=== PATIENT | female | born 1935 | race Caucasian/White ===

== ENCOUNTER → 2017-08-19 16:23 | Outpatient (CLI) | payer MEDICARE, BC, SELFPAY ==
--- NOTE | 2017-08-19 16:25 | CT_ITS ---
STUDY: CT BRAIN WITHOUT CONTRAST REASON FOR EXAM: Female, 81 years old. Cognitive impairment. RADIATION DOSAGE (If Supplied By Facility): CTDIvol = ( 44.99 ) mGy, DLP = ( 765.18 ) mGycm TECHNIQUE: Transaxial CT imaging of the brain was performed without administration of intravenous contrast material. Individualized dose optimization techniques were used for this CT. COMPARISON: May 01, 2017. FINDINGS: Normal soft tissue structures. Normal calvarium. Normal size ventricles and extra-axial spaces for the patient's age. Normal white matter tracts of the cerebral hemispheres. Normal basal ganglia and thalami. Normal brainstem. Normal cerebellum. There is no intracranial hemorrhage. There are no findings of an acute ischemic infarction. Normal visualized paranasal sinuses. CT/Brain/Head without Contrast IMPRESSION: Normal unenhanced CT scan of the brain, for age. Electronically Signed: Matt Montoya MD at 6:27 EDT , Service support ,
== END ==
PROVIDERS: Family Provider Family Medicine; PCP Family Medicine; Visit Provider Family Medicine
DX: R41.89 Other symptoms and signs involving cognitive functions and awareness (principal)
CPT/HCPCS: 70450

== ENCOUNTER → 2017-09-09 11:31 | Outpatient (CLI) | payer MEDICARE, BC, SELFPAY ==
[2017-09-09 12:55] LABS: Anion Gap 7 (5-15); Chloride 106 mmol/L (98-107); Potassium 3.6 mmol/L (3.5-5.1); Sodium Level 142 mmol/L (136-145); Thyroid Stim Hormone (TSH) 1.24 uIU/mL (0.358-3.74)
[2017-09-10 09:48] LABS: Vitamin B12 466 pg/mL (211-911)
[2017-09-12 02:33] LABS: Rapid Plasmin Reagin (RPR) NONREACTIVE (NONREACTIVE)
== END ==
PROVIDERS: Family Provider Family Medicine; PCP Family Medicine; Visit Provider Psychiatry & Neurology Neurology
DX: G31.84 Mild cognitive impairment of uncertain or unknown etiology (principal)
CPT/HCPCS: 36415; 80051; 82607; 84443; 86592

== ENCOUNTER → 2017-09-11 13:45 | Outpatient (CLI) | payer MEDICARE, BC, SELFPAY ==
--- NOTE | 2017-09-11 13:46 | CDU_ITS ---
Reason For Study: DIZZINESS Rt. Velocities/BP Lt. Velocities/BP Prox CCA 68.0/22.3 cm/sec. Prox CCA 78.0/23.5 cm/sec. Mid CCA 59.8/20.5 cm/sec. Mid CCA 55.7/19.3 cm/sec. Dist CCA 61.0/25.2 cm/sec. Dist CCA 57.5/18.2 cm/sec. Prox ICA 53.5/21.5 cm/sec. Prox ICA 39.7/13.7 cm/sec. Mid ICA 61.0/22.9 cm/sec. Mid ICA 42.8/17.3 cm/sec. Dist ICA 53.1/22.3 cm/sec. Dist ICA 48.4/19.3 cm/sec. Rt. ICA/CCA = 1.0. Lt. ICA/CCA = .86. Prox ECA 45.1/11.1 cm/sec. Prox ECA 55.1/14.1 cm/sec. Rt. Vert. 48.1/15.8 cm/sec. Lt. Vert. 32.2/9.8 cm/sec. Right Extracranial There is intimal thickening but no significant atherosclerotic plaque noted in the right common carotid artery. There is heterogeneous, irregular atherosclerotic plaque noted in the right internal carotid artery. There is heterogeneous, irregular atherosclerotic plaque noted in the right external carotid artery. Antegrade flow is noted in the right vertebral artery. Left Extracranial There is homogeneous, smooth atherosclerotic plaque noted in the left common carotid artery. There is heterogeneous, irregular atherosclerotic plaque noted in the left internal carotid artery. There is heterogeneous, irregular atherosclerotic plaque noted in the left external carotid artery. Antegrade flow is noted in the left vertebral artery. Procedure Carotid Duplex 00126. Exam performed in department. Interpretation Summary Minimal irregular plague at the proximal bilateral internal carotids with <50% stenosis bilaterally Normal flow bilateral external carotids Patent and antegrade vertebrals bilaterally Ordering Physician: Gabby Jaramillo Referring Physician: Sagar Hazel M.D. Performed By: Jailyn Edouard RVT
== END ==
PROVIDERS: Family Provider Family Medicine; PCP Family Medicine; Visit Provider Physician Assistant Medical
DX: R01.1 Cardiac murmur, unspecified (principal); R42 Dizziness and giddiness
CPT/HCPCS: 93306; 93880

== ENCOUNTER → 2017-09-19 09:18 | Outpatient (CLI) | payer MEDICARE, BC, SELFPAY ==
--- NOTE | 2017-09-21 11:31 | EEG ---
- Electroencephalogram Date of service 09/19/2017 This is an 18 channel electroencephalogram performed utilizing the International 10-20 electrode placement protocol as well as EKG reference leads and photic stimulation on this 81-year-old lady with a history of dizziness after a pacemaker check. The EKG leads were obscured by artifact throughout the recording. The patient remained awake throughout the recording. Hyperventilation was performed for 3 minutes with good effort with no lateralizing or epileptiform changes in the post hyperventilatory phase was unremarkable. Background activity is 10 Hz symmetrically in the posterior leads which attenuates with eye opening. Photic stimulation generates a normal symmetric driving response in the posterior leads. Impression: Normal awake electroencephalogram.
== END ==
PROVIDERS: Family Provider Family Medicine; PCP Family Medicine; Visit Provider Psychiatry & Neurology Neurology
DX: R41.3 Other amnesia (principal); R55 Syncope and collapse

== ENCOUNTER → 2017-10-06 11:52 | Outpatient (CLI) | payer MEDICARE, BC, SELFPAY ==
[2017-10-06 15:47] LABS: Absolute Lymphocyte Count 1.28 X10^3/ul (0.83-4.51); Absolute Neutrophil Count 4.1 X10^3/uL (2.0-7.7); Basophil# 0.03 X10^3/uL; Basophil% 0.5 % (0-1); Eosinophil# 0.02 X10^3/uL; Eosinophils% 0.3 % (0-5); Hematocrit 43.2 % (37-47); Lymphocyte # 1.28 X10^3/ul (4.0); Lymphocyte % 21.3 % (19-41); Mean Corp Hgb Conc 32.4 g/gl (32-36); Mean Corpuscular Hgb 28.5 pg (27.0-32.0); Mean Platelet Vol. 10.8 fl (6.2-12.0); Monocyte# 0.61 X10^3/uL; Monocyte% 10.1 % (0-10); Neutrophil # 4.06 X10^3/uL (2.7-7.7); Neutrophil % 67.6 % (47-70); Platelet Count 160 K/mm3 (150-450); RBC Distribution Width CV 13.9 % (11.6-14.6); RBC Distribution Width SD 44.8 fl (35.1-43.9); Red Blood Count 4.91 M/mm3 (4.2-5.4)
[2017-10-06 16:08] LABS: POSITIVE COUNT NO; POSITIVE DIFFERENTIAL NO; POSITIVE MORPHOLOGY NO
== END ==
PROVIDERS: Family Provider Family Medicine; PCP Family Medicine; Visit Provider Physician Assistant Medical
DX: E78.2 Mixed hyperlipidemia (principal)
CPT/HCPCS: 36415; 85025

== ENCOUNTER → 2017-10-16 09:22 | Outpatient (CLI) | payer MEDICARE, BC, SELFPAY ==
--- NOTE | 2017-10-16 07:00 | PET_ITS ---
EXAMINATION: FDG PET BRAIN INDICATIONS: A 81-year-old female with reported history of memory loss. COMPARISON EXAMINATION: CT of the brain report dated 08/19/17. TECHNIQUE: Following the intravenous administration of 10.05 mCi of F-18 deoxyglucose via the right antecubital fossa, multiplanar image acquisitions of the brain obtained at 60 minutes post radiopharmaceutical administration reveal: SERUM GLUCOSE LEVEL: 83 mg/dl. HEIGHT: 60 inches. WEIGHT: 110 lbs FINDINGS: 1. Qualitative, visual analysis demonstrates relatively symmetric and preserved glucose metabolism noted in the bilateral frontal, temporal, occipital and parietal lobes of the cerebral cortex. There is symmetric visualized on the basal ganglia and cerebellar hemispheres. PET/PET Brain Metabolic Eval IMPRESSION: 1. NEGATIVE EXAMINATION. There is no definitive scintigraphic evidence of altered glucose metabolism indicative of cholinergic dysfunction, dementia Alzheimer type on the present evaluation. (Raine, Molecular Imaging and Biology 4:239, 2004). Electronic Signature Kendrick Santiago D.O. Electronically Signed: Kendrick Santiago DO at 23:46 EDT Tel , Service support ,
== END ==
LOC: ONC 09:22
PROVIDERS: Family Provider Family Medicine; PCP Family Medicine; Visit Provider Psychiatry & Neurology Neurology
DX: C71.9 Malignant neoplasm of brain, unspecified (principal)
CPT/HCPCS: 78608; A9552; A4216

== ENCOUNTER 2017-11-16 12:51 | Emergency (ER) | payer MEDICARE, BC, SELFPAY ==
[2017-11-16 12:52] VITALS: BP 184/105; PULSE 88; RESP 16; TEMP 36.7; O2SAT 99; BMI 20.2
--- NOTE | 2017-11-16 13:14 | EKG12_ITS ---
Test Reason : DIZZINESS Blood Pressure : / mmHG Vent. Rate : 087 BPM Atrial Rate : 087 BPM P-R Int : 170 ms QRS Dur : 164 ms QT Int : 474 ms P-R-T Axes : 054 -29 091 degrees QTc Int : 570 ms Atrial-sensed ventricular-paced rhythm Abnormal ECG Confirmed by WALLY REDD, LEIGH ([id number]), content editor LINDSAY AGOSTO ([id number]) on 11/20/2017 3:48:15 PM Referred By: EMERITA Confirmed By:LEIGH LO MD
--- NOTE | 2017-11-16 13:18 | RAD_ITS ---
STUDY: X-RAY CHEST REASON FOR EXAM: Female, 82 years old. Shortness of breath and dyspnea TECHNIQUE: Single AP portable view of the chest. COMPARISON: 05/18/2017 FINDINGS: There is hyperinflation of the lungs consistent with chronic obstructive lung disease (COPD). Stable elevated left hemidiaphragm with underlying stomach bubble. Stable left chest wall pacing device. There is no demonstrated pleural abnormality. There is mild cardiac enlargement. Normal mediastinum and dick. Normal visualized pulmonary arteries. There is atherosclerotic calcification of the aortic arch with tortuosity. There are diffuse degenerative changes of the visualized thoracic spine. Normal visualized ribs, clavicles, and shoulders. There is no demonstrated abnormality of the visualized soft tissue structures of the upper abdomen. RAD/Chest 1 View (Portable) IMPRESSION: No acute findings Electronically Signed: Pee Pradhan DO at 13:49 EDT Tel , Service support ,
[2017-11-16] MEDS: 0.9% Normal Saline 1,000 ML 100 ML IV (13:20)
[2017-11-16 13:26] LABS: Absolute Lymphocyte Count 0.93 X10^3/ul (0.83-4.51); Absolute Neutrophil Count 5.8 X10^3/uL (2.0-7.7); Basophil# 0.02 X10^3/uL; Basophil% 0.3 % (0-1); Eosinophil# 0.04 X10^3/uL; Eosinophils% 0.5 % (0-5); Hematocrit 45.3 % (37-47); Hemoglobin 14.4 g/dl (12.0-15.0); Lymphocyte # 0.93 X10^3/ul (4.0); Lymphocyte % 12.5 % (19-41); Mean Corp Hgb Conc 31.8 g/gl (32-36); Mean Platelet Vol. 9.8 fl (6.2-12.0); Monocyte# 0.64 X10^3/uL; Monocyte% 8.6 % (0-10); POSITIVE COUNT NO; POSITIVE DIFFERENTIAL NO; POSITIVE MORPHOLOGY NO; Platelet Count 157 K/mm3 (150-450); RBC Distribution Width CV 13.8 % (11.6-14.6); RBC Distribution Width SD 44.6 fl (35.1-43.9); Red Blood Count 5.15 M/mm3 (4.2-5.4); White Blood Count 7.4 K/mm3 (4.4-11.0)
[2017-11-16 13:27] LABS: Mucous, Urine 0 SEEN /hpf (<or=2+); Red Blood Cells-Urine 0 SEEN /hpf (0-5); Squamous Epithelial Cells - UA 0 SEEN /hpf (5-10); White Blood Cells 0 SEEN /hpf (0-5)
[2017-11-16 13:28] LABS: Color, Urine Yellow (Yellow); Glucose, Dipstick Normal (Normal); Ketone-Dipstick Negative (Negative); Leukocyte Esterase-Dipstick 25 /ul (Negative); Nitrite-Dipstick Positive (Negative); Occult Blood-Urine Negative /ul (Negative); Protein-Dipstick Negative (Negative); Urine Bilirubin Dipstick Negative (Negative); Urine Clarity Clear (Clear); Urine Urobilinogen Normal (Normal)
[2017-11-16 13:34] LABS: Anion Gap 7 (5-15); BUN 9 mg/dL (7-18); BUN/Creat Ratio 10.4 RATIO (10-20); Calcium,Total 9.2 mg/dL (8.5-10.1); Chloride 105 mmol/L (98-107); Creatinine, Serum 0.87 mg/dL (0.55-1.02); EST Glomerular Filtration Rate 67 mL/min (>60); Est Glom Filt Rate - Afr Amer 81 mL/min (>60); Estimated Creatinine Clearance 37.05 ml/min; Glucose 114 mg/dL (74-106); Potassium 3.6 mmol/L (3.5-5.1); Sodium Level 141 mmol/L (136-145)
[2017-11-16 13:35] LABS: Bacteria 1+ /hpf (None Seen)
--- NOTE | 2017-11-16 14:32 | NURSING ---
INTERROGATED PACER WITH ED'S [facility] KIT PER PROTOCOL. NUMBER CALLED AT THE END TO GET RESULTS. WAS TOLD A PHYSICIAN WOULD READ IT AND CALL ED BACK.
--- NOTE | 2017-11-16 14:52 | ED.VISSUMM ---
- ER Visit Summary Date of Service: 11/16/17 Chief Complaint: Dizzy History of Present Illness: The patient is a 82 F who states she had a dizzy sensation at religion this morning is that she might pass out. She states that she could feel her pacemaker firing which she usually cannot. She did not have chest pain and did not feel like her heart was racing or beating abnormally. She feels better at this time. She did not eat breakfast this morning but states that is normal for her. Physical Examination: Vital signs are significant for blood pressure of 184/105. Other vitals are normal. Patient sitting upright in bed talking with her family. She is in no acute distress. Head neck examination is normal. Heart is regular rate and rhythm. Lungs are clear. Abdomen is soft and nontender. Extremity examination reveals no calf tenderness or edema. Neuro exam reveals good strength and sensation throughout on testing. Test Results: EKG is paced at 87. This is unchanged compared to prior. Chest x-ray shows no acute findings. CBC and chemistry studies unremarkable. Urinalysis shows 1+ bacteria but 0 white cells and 0 epithelials. Emergency Department Course and Treatment: Patient received IV fluids. Pacemaker was interrogated and shows no events. She was up ambulating to the restroom without difficulty multiple times while here. At this time she feels back to her baseline. Vital signs at time of discharge include a blood pressure of 138/79 and a heart rate of 84. Treatment Plan: [] Disposition: Discharge Impression: Dizziness, resolved This note was generated with [employer] dictation software. It may contain incorrect words, spelling, and punctuation that were not noted in review of the chart prior to signing ED Disposition - Plan for ED Patient: Disposition: Home or Assisted Living Chief Complaint: Dizziness Instructions: ED Dizziness [facility] Referrals: Zay Bautista MD [STAFF PHYSICIAN] - Sagar Hazel MD [Primary Care Provider] -
--- NOTE | 2017-11-16 14:52 | ED.DEP ---
ED Disposition - Plan for ED Patient: Disposition: Home or Assisted Living Chief Complaint: Dizziness Instructions: ED Dizziness [facility] Referrals: Sagar Hazel MD [Primary Care Provider] - Zay Bautista MD [STAFF PHYSICIAN] -
[2017-11-16 15:03] VITALS: BP 138/94; PULSE 84; RESP 18; O2SAT 98
== END 2017-11-16 15:08 | disposition home or self-care (01) ==
PROVIDERS: Emergency Provider Emergency Medicine; Family Provider Family Medicine; PCP Family Medicine
DX: R42 Dizziness and giddiness (principal); E78.00 Pure hypercholesterolemia, unspecified; Z95.0 Presence of cardiac pacemaker
CPT/HCPCS: 71045; 80048; 81001; 85025; 93005; 99285

== ENCOUNTER 2019-11-11 20:02 | Emergency (ER) | payer MEDICARE, SELFPAY ==
[2019-07-08 08:50] VITALS: BMI 20.2
[2019-11-11 20:03] VITALS: BP 143/92; PULSE 86; RESP 16; TEMP 36.3; O2SAT 100; BMI 21.2
[2019-11-11] MEDS: Ondansetron ODT 4 MG Tablet PO (20:22)
[2019-11-11] MEDS: fentaNYL 100 MCG/2 ML Ampul 50 MCG IM (20:23)
--- NOTE | 2019-11-11 20:35 | RAD_ITS ---
STUDY: X-RAY - PELVIS AND RIGHT HIP REASON FOR EXAM: Female, 83 years old. Fall today. Rt hip pain. TECHNIQUE: 3 views of the pelvis and hip. COMPARISON: February 03, 2014. FINDINGS: There is a normal bowel gas pattern. There are multiple calcified phleboliths. There is diffuse demineralization of the osseous structures. Normal bilateral iliac wings, sacroiliac joints and visualized sacrum. Normal bilateral superior and inferior pubic rami. Normal pubic symphysis. Normal bilateral ischial tuberosities. Normal visualized femoral head. Normal acetabulum. Normal hip joint. RAD/HIP, UNI W/ Pelvis 2-3 Views IMPRESSION: Demineralization. No fracture seen. Electronically Signed: Praveen Adair MD at 21:19 EDT , Service support ,
--- NOTE | 2019-11-11 20:35 | RAD_ITS ---
STUDY: X-RAY - LEFT WRIST REASON FOR EXAM: Female, 83 years old. Fall today. left wrist pain. TECHNIQUE: 3 view(s) of the wrist were obtained. COMPARISON: None. FINDINGS: There is demineralization of the radius and ulna. There is acute bony fracture of the distal radius with dorsal angulation. There is acute nondisplaced ulnar styloid fracture. Normal radiocarpal articulation. Normal distal radioulnar articulation. There is demineralization of the carpal bones. There is degenerative arthrosis of the carpal articulations. There is degenerative arthrosis of the carpometacarpal articulation of the thumb. Normal second through fifth carpometacarpal articulations. Normal visualized metacarpal bones. There is soft tissue swelling . RAD/Wrist min 3 Views IMPRESSION: Distal radius and ulna fractures. Electronically Signed: Praveen Adair MD at 21:13 EDT , Service support ,
--- NOTE | 2019-11-11 21:17 | ED.DCSUM_ITS ---
- ER Visit Summary Date of Service: 11/11/19 Chief Complaint: Fall History of Present Illness: The patient is a [address] Murray. She is right-hand dominant. She reports that she was running with her great- granddaughter and fell when she cut her off. She complains of a sharp pain in her left wrist that is 10 out of 10 with movement 9 out of 10 at rest. She denies any paresthesias distally. She reports that she has pain in her right hip is 4-10 in severity. Patient has any blow to the head or loss of consciousness. She not on anticoagulants. She denies any neck, back, shoulder, right wrist, or left hip pain. Physical Examination: Vitals: Stable. Afebrile. Neck: No vertebral tenderness. Full ROM without difficulty. Cleared by NEXUS criteria. Back: No vertebral tenderness. General: A&O x 3. NAD. Cardiovascular exam: Regular rate and rhythm, no murmur, rub or gallop. Respiratory exam: Chest nontender. No crepitus. Clear to auscultation bilaterally. No wheezes or stridor. Abdominal exam: Soft, nontender, nondistended, normal bowel sounds. No pain in R UQ or LUQ specifically. No peritoneal signs. Extremity: Moderate tenderness palpation with an obvious deformity over her left wrist. She has pain with any range of motion. She is neuro vas intact distal to this. Minimal tenderness palpation over her right greater trochanter. No pain with internal/external rotation of her hip. Test Results: Clinical Impression(s) from Imaging Studies Hip/Pelvis X-Ray 11/11/19 20:35 IMPRESSION: Demineralization. No fracture seen. Electronically Signed: Praveen Adair MD at 21:19 EDT , Service support , Wrist X-Ray 11/11/19 20:35 IMPRESSION: Distal radius and ulna fractures. Electronically Signed: Praveen Adair MD at 21:13 EDT , Service support , Emergency Department Course and Treatment: Patient was treated the dose of fentanyl IM. She had her wrist placed in a sugar tong splint. She was then placed in a sling and given Tylenol p.o. Treatment Plan: Patient refused pain medications for home. She will be discharged instructions to ice her wrist. Follow-up with Dr. Garcia in 1 week for another exam. Return to the emergency department for any worsening symptoms. Disposition: To home in improved and stable condition. Impression: 1. Fall. 2. Left distal radius fracture. 3. Left ulnar styloid fracture. 4. Right hip contusion. 5. Ortho-Glass sugar tong splint, fabricated. This note was generated with [employer] software. It may contain incorrect words, spelling, and punctuation that were not noted in review of the chart prior to signing ED Disposition - Plan for ED Patient: Instructions: ED Fx Colles Wrist No Redu Requ Referrals: Nehemiah Gross DO [STAFF PHYSICIAN] - 1 Week
[2019-11-11] MEDS: Acetaminophen 325 MG Tablet 650 MG PO (21:41)
[2019-11-11 21:42] VITALS: RESP 16
== END 2019-11-11 21:42 | disposition home or self-care (01) ==
LOC: ED 20:28
PROVIDERS: Emergency Provider Emergency Medicine; PCP Family Medicine
DX: S52.502A Unspecified fracture of the lower end of left radius, initial encounter for closed fracture (principal); S52.615A Nondisplaced fracture of left ulna styloid process, initial encounter for closed fracture; S70.01XA Contusion of right hip, initial encounter; W19.XXXA Unspecified fall, initial encounter; Y93.02 Activity, running; Y92.9 Unspecified place or not applicable; Y99.9 Unspecified external cause status; I10 Essential (primary) hypertension; Z79.899 Other long term (current) drug therapy
CPT/HCPCS: 29125; 73110; 73502; 96372; 99284

== ENCOUNTER → 2019-11-17 10:19 | Outpatient (CLI) | payer MEDICARE, SELFPAY ==
[2019-11-17 10:13] VITALS: BMI 21.2
--- NOTE | 2019-11-17 10:19 | RAD_ITS ---
STUDY: X-RAY - LEFT WRIST REASON FOR EXAM: Female, 84 years old. Fall 2 days ago. TECHNIQUE: 3 view(s) of the wrist were obtained. COMPARISON: Left wrist, November 11, 2019. FINDINGS: Again seen is a comminuted fracture of the distal radius with dorsal angulation unchanged from prior study. There is no evidence of interval callus formation or healing. There is also nondisplaced fracture of the ulnar styloid. There is degenerative arthrosis of the radiocarpal articulation. Normal distal radioulnar articulation. Normal carpal bones. There is degenerative arthrosis of the carpal articulations. There is degenerative arthrosis of the carpometacarpal articulation of the thumb. Normal second through fifth carpometacarpal articulations. Normal visualized metacarpal bones. The soft tissue structures are unremarkable. RAD/Wrist min 3 Views IMPRESSION: Stable fractures of the distal radius and ulna. Electronically Signed: Sukhdeep Bledsoe DO at 17:22 EDT Tel [phone], Service support ,
== END ==
PROVIDERS: PCP Family Medicine; Referring Provider Orthopaedic Surgery; Visit Provider Orthopaedic Surgery
DX: S62.102A Fracture of unspecified carpal bone, left wrist, initial encounter for closed fracture (principal)
CPT/HCPCS: 73110

== ENCOUNTER 2019-11-23 06:50 | Day surgery (SDC) | payer MEDICARE, SELFPAY ==
[2019-11-17 10:13] VITALS: BMI 21.2
--- NOTE | 2019-11-22 10:34 | EKG12_ITS ---
Test Reason : Blood Pressure : / mmHG Vent. Rate : 085 BPM Atrial Rate : 085 BPM P-R Int : 162 ms QRS Dur : 146 ms QT Int : 458 ms P-R-T Axes : 044 -48 109 degrees QTc Int : 545 ms Atrial-sensed ventricular-paced rhythm with occasional Premature ventricular complexes Abnormal ECG Confirmed by WALLY REDD, LEIGH ([id number]), slot editor FOREST BROWN ([id number]) on 11/23/2019 11:00:11 AM Referred By: Nehemiah Gross Confirmed By:LEIGH LO MD
[2019-11-22 11:58] LABS: Hematocrit 43.9 % (37-47); Hemoglobin 13.8 g/dL (12.0-15.0); Mean Corp Hgb Conc 31.4 g/dL (32-36); Mean Corpuscular Hgb 28.1 pg (27.0-32.0); Mean Corpuscular Volume 89.4 fL (81-99); Platelet Count 203 K/mm3 (150-450); RBC Distribution Width CV 13.5 % (11.6-14.6); RBC Distribution Width SD 44.3 fl (35.1-43.9); Red Blood Count 4.91 M/mm3 (4.2-5.4); White Blood Count 5.2 K/mm3 (4.4-11.0)
[2019-11-22 12:24] LABS: Anion Gap 6 (5-15); BUN 11 mg/dL (7-18); BUN/Creat Ratio 12.5 RATIO (10-20); Calcium,Total 8.6 mg/dL (8.5-10.1); Chloride 103 mmol/L (98-107); Creatinine, Serum 0.88 mg/dL (0.55-1.02); EST Glomerular Filtration Rate 65 mL/min (>60); Est Glom Filt Rate - Afr Amer 79 mL/min (>60); Glucose 111 mg/dL (74-106); Potassium 3.8 mmol/L (3.5-5.1); Sodium Level 136 mmol/L (136-145)
[2019-11-23] VITALS (7 sets, daily range): BP systolic 118–150; BP diastolic 76–94; PULSE 82–95; RESP 14–16; TEMP 36.8–37.2; O2SAT 95–99; BMI 20.3
[2019-11-23] MEDS: Lactated Ringers 1,000 ML 100 ML IV (07:40)
--- NOTE | 2019-11-23 08:55 | RAD_ITS ---
STUDY: X-RAY - LEFT WRIST REASON FOR EXAM: Female, 84 years old. ORIF LT DISTAL RADIUS TECHNIQUE: 3 intraoperative view(s) of the wrist were obtained. COMPARISON: Comparison is made with prior examination dated November 17, 2019. FINDINGS: Intraoperative imaging provided for open reduction and internal fixation of the distal radial fracture utilizing screw and sideplate fixation device. There is good alignment. Postoperative soft tissue changes. RAD/Wrist min 3 Views IMPRESSION: Intraoperative imaging provided for ORIF of the distal radial fracture. There is good alignment. Electronically Signed: Joesph Fink, at 11:10 EDT , Service support ,
--- NOTE | 2019-11-23 10:09 | PCM.HP.BLA ---
History and Physical Date of Admission: 11/23/19 Intake Intake Visit Reasons: LEFT WRIST Chief Complaint: Follow up Allergies codeine Allergy (Verified 11/11/19 20:03) Unknown Penicillins Allergy (Verified 11/11/19 20:03) Unknown Sulfa (Sulfonamide Antibiotics) Allergy (Verified 11/11/19 20:03) Unknown [facility] Social History (Updated 11/17/19 @ 10:[address] Nehemiah Gross DO) Smoking Status: Never smoker alcohol intake: never substance use type: does not use caffeine: Yes Type: carbonated beverages, coffee what type of physical activity do you participate in: none seatbelt use: always do you feel safe at home: Yes HPI LEFT WRIST: Details: Parts of this documentation were recorded by a scribe, this documentation accurately reflects the service provided and the decisions made by me, Dr. Nehemiah Gross DO 11/17/19 0753. SRINIVAS KWON is a 84 year old F NEW patient here today for left wrist injury. States she was running with her granddaughter and she fell onto her left wrist. DOI: 11/11/2019 STates she went to the ER the same day and she had x-rays and was splinted. She does have some numbness of her middle finger. Patient has a lot of brusing noted to her fingers. states that they did loosen the splint last night. 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 Other closed intra-articular fracture of distal end of left radius, initial encounter S54.663X 2. Other closed fracture of distal end of left ulna, initial encounter S55.576V Plan Personally reviewed the patients x-rays. Patient educated that she has a fracture and that this fracture is tilting backward. Educated that with the tilt this will cause her very limited ROM if she does not choose to have surgery. Educated that if she chooses to be placed in a cast then there is an increased risk of this fracture site moving more an decreased stiffness. Recommended that she has a the fracture site plated. Educated that there is risk that the hardware would fail and she still could have continued stiffness after surgery. Educated that after surgery she will still require 1-2 weeks of immobilization and PT. Reviewed the pre-operative plans with the patient. Risks and benefits of the procedure were fully explained, including but not limited to infection, neurovascular injury, continued pain, arthritis, stiffness, need for further surgery, re-injury, DVT, PE, general risks of anesthesia, and loss of limb or life. The patient understands all the risks and does wish to proceed with written consent. Patient wishes to proceed with left distal radius ORIF. Patient given a volar wrist splint today and insructed to leave this on until the day of surgery. Instructed to not eat or drink anything after midnight on Friday. Patient encouraged to elevate the arm as much as possible over the weekend and work on getting the swelling out. Follow up 2 weeks post op or sooner if pain, swelling, numbness or associated symptoms, or concerns develop. All questions answered. Patient in agreement of plan. Orders Orders: Wrist min 3 Views Today S62.102A Coding Level of Care Code Off vis,new,level 3 Diagnoses Other closed intra-articular fracture of distal end of left radius, initial encounter S52.572A ??Encounter type: initial encounter ??Fracture type: closed ??Fracture morphology: other intra-articular Other closed fracture of distal end of left ulna, initial encounter S52.422A ??Encounter type: initial encounter ??Fracture morphology: other fracture ??Fracture type: closed I have re-examined the patient. There are no clinical changes since date of exam
--- NOTE | 2019-11-23 10:10 | DCINST_ITS ---
Discharge Diet: No Restrictions Call your doctor if you observe: Shortness of breath, Chest pain Additional Instructions: Do not remove splint. Keep splint on clean and dry do not get wet. encourage full finger range of motion immediately. Absolutely no lifting pushing or pulling any weight with operative extremity. Keep elevated above heart over the next week. Keep cool. Do not stick anything inside of splint. Avoiding sweating will help with itch. If itchy may use [id number] Benadryl. Foll ow-up as directed call with any concerns. Allergies/Adverse Reactions: Allergies codeine Allergy (Verified 11/23/19 07:15) Unknown Penicillins Allergy (Verified 11/23/19 07:15) Unknown Sulfa (Sulfonamide Antibiotics) Allergy (Verified 11/23/19 07:15) Unknown Medications to take at Discharge Aspirin [Aspirin, Baby] 81 mg PO DAILY@0800 05/01/17 Donepezil HCl [Aricept] 10 mg PO QHS 05/01/17 Citalopram [Celexa] 40 mg PO DAILY 05/18/17 Meloxicam [Mobic] 15 mg PO BREAKFAST 05/18/17 lisinopril 10 mg tablet 10 mg PO QDAY #90 tab 07/07/19 atorvastatin 80 mg tablet 80 mg PO QDAY #90 tab 08/31/19 Primary Care Physician: Sagar Murray MD [Primary Care Provider] - Test Results: Test results from this visit will be discussed in further detail at your follow- up appointment, if applicable. Please Follow Up With: Nehemiah Gross DO - 2 weeks
--- NOTE | 2019-11-23 10:17 | PCM.OPRPT ---
Report of Operation Date of Procedure: 11/23/19 Description of Surgical Findings:: Preoperative diagnosis: Comminuted left distal radius fracture extra-articular greater than 3 fragments and ulnar styloid Postoperative diagnosis: Same Procedure: ORIF of the distal radius Implants: Synthes distal radius variable angle locking plate Tourniquet time: 57 minutes Complications: None Indication for procedure: 84-year-old female status post ground-level fall who had comminuted distal radius fracture we discussed risks benefits and alternatives of conservative versus surgical intervention. Including the risk of bleeding infection nerve artery tissue damage need for further surgery continued pain postoperative stiffness need for postoperative physical therapy and the expected postoperative course. Procedure: The patient was met in the preoperative holding area the operative extremity was identified by both patient and physician and marked. Patient was met by anesthesia she was brought back to the operating room on a wheeled cart and transferred to the operating table in the supine position anesthesia was started. A well-padded tourniquet was placed on the upper arm of the operative extremity. She was prepped and draped in the usual sterile fashion. A Time out was called to ensure the proper patient procedure and extremity were being contemplated. A 15 blade scalpel was used to make a linear incision over the FCR tendon this was carried down through the skin and subcutaneous tissue. Electrocautery was used to maintain hemostasis. Tom retractors were used. The FCR tendon sheath was incised and the FCR tendon was mobilized radially. A deep blade scalpel was used to perforate the fascia of the deep FCR tendon sheath and Littler scissors were used to dissect proximally and distally. Blunt dissection was performed a bon was placed on the radial and ulnar side of the radius. The pronator quadratus was partially torn from the injury and was released off the radial border of the radius with electrocautery and was elevated with a davidson elevator. The Hohmann retractors were then placed deep to this muscle. The fracture site was visualized and was freed of hematoma and clot debris with the use of small rongeur and [place]. The fracture was then reduced with the use of a [place] and ulnar deviation and wrist flexion. This was checked under fluoroscopy to ensure that an adequate reduction could be performed. A plate was then positioned over the fracture site and temporarily fixed to the bone with K wires. A cortical screw was then placed in the shaft and sequential locking screws were placed distally this was checked on both AP and lateral projections to ensure screw placement was not penetrating the joint and was in the proper location. Bone drill sleeve was used for the radial styloid screw and a variable angle fashion. The remainder of the cortical screws were placed in the shaft. And the fracture and hardware were visualized in both AP and lateral projections in good alignment and fracture positioning. The wound was thoroughly irrigated. Pronator quadratus was not repairable. A subcutaneous stitch with 3-0 Vicryl was performed followed by 4-0 nylon vertical mattress stitches. Followed by Xeroform 4 x 4 ABD web roll stockinette more web roll and an Cruz wrap. The tourniquet was let down. There was no complications intraoperatively and the patient was brought back to the PACU in stable condition where she received an axillary block. All counts were correct.
== END 2019-11-23 11:42 | disposition home or self-care (01) ==
LOC: SDC 06:50 → AC 06:52
PROVIDERS: Anesthesiology; PCP Family Medicine; Referring Provider Orthopaedic Surgery; Visit Provider Orthopaedic Surgery
PROC: (CPT 25607; principal; 2019-11-23 08:45)
DX: S52.552A Other extraarticular fracture of lower end of left radius, initial encounter for closed fracture (principal); S52.612A Displaced fracture of left ulna styloid process, initial encounter for closed fracture; S52.572A Other intraarticular fracture of lower end of left radius, initial encounter for closed fracture; S52.692A Other fracture of lower end of left ulna, initial encounter for closed fracture; Z88.0 Allergy status to penicillin; Z88.2 Allergy status to sulfonamides; W18.30XA Fall on same level, unspecified, initial encounter; Y93.9 Activity, unspecified; Y92.89 Other specified places as the place of occurrence of the external cause; Y99.9 Unspecified external cause status
CPT/HCPCS: 25607; 64418; 36415; 73110; 76000; 80048; 85027; 87635; 93005; C1713; G2023; J7050; J7120; J2405; U0003

== ENCOUNTER → 2020-01-03 08:43 | Outpatient (CLI) | payer MEDICARE, SELFPAY ==
[2020-01-03 07:47] VITALS: BMI 20.3
--- NOTE | 2020-01-03 08:45 | RAD_ITS ---
STUDY: X-RAY - LEFT WRIST REASON FOR EXAM: Female, 84 years old. F/U POST OP LEFT WRIST. TECHNIQUE: 4 view(s) of the wrist were obtained. COMPARISON: 11/17/2019 FINDINGS: The bones are diffusely demineralized. Since the previous study, patient has undergone ORIF of the distal radial fracture with placement of a volar plate. The hardware is intact and free of complication. There is still fracture lucency noted in the PA film in the peripheral cortex of the distal metaphysis of the radius. There are old ununited ulnar styloid and scaphoid fractures. RAD/Wrist min 3 Views IMPRESSION: Diffuse osteopenia with near complete healing of a previously noted surgically reduced distal radial fracture. 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
== END ==
PROVIDERS: PCP Family Medicine; Referring Provider Orthopaedic Surgery; Visit Provider Orthopaedic Surgery
DX: S52.602A Unspecified fracture of lower end of left ulna, initial encounter for closed fracture (principal); S52.502A Unspecified fracture of the lower end of left radius, initial encounter for closed fracture; Z47.89 Encounter for other orthopedic aftercare
CPT/HCPCS: 73110

== ENCOUNTER 2020-01-10 10:03 | Day surgery (SDC) | payer MEDICARE, SELFPAY ==
[2020-01-03 07:47] VITALS: BMI 20.3
[2020-01-04 09:56] LABS: Mucous, Urine 0 SEEN /hpf (<or=2+)
[2020-01-04 10:39] LABS: Hematocrit 45.8 % (37-47); Hemoglobin 14.4 g/dL (12.0-15.0); Mean Corp Hgb Conc 31.4 g/dL (32-36); Mean Corpuscular Hgb 28.9 pg (27.0-32.0); Mean Corpuscular Volume 91.8 fL (81-99); Mean Platelet Vol. 9.8 fl (6.2-12.0); Platelet Count 166 K/mm3 (150-450); RBC Distribution Width CV 14.7 % (11.6-14.6); RBC Distribution Width SD 49.5 fl (35.1-43.9); Red Blood Count 4.99 M/mm3 (4.2-5.4); White Blood Count 4.9 K/mm3 (4.4-11.0)
[2020-01-04 10:47] LABS: Color, Urine Yellow (Yellow); Glucose, Dipstick Normal (Normal); Ketone-Dipstick Negative (Negative); Leukocyte Esterase-Dipstick 25 /ul (Negative); Nitrite-Dipstick Positive (Negative); Occult Blood-Urine 10 /ul (Negative); Protein-Dipstick Negative (Negative); Specific Gravity, Urine 1.015 (1.002-1.030); Urine Bilirubin Dipstick Negative (Negative); Urine Clarity Sl. Cloudy (Clear); Urine Urobilinogen Normal (Normal)
[2020-01-04 10:53] LABS: Prothrombin Time (Protime)PT. 12.2 SECONDS (11.7-14.9)
[2020-01-04 10:55] LABS: Bacteria 2+ /hpf (None Seen); Red Blood Cells-Urine 0-5 SEEN /hpf (0-5); Squamous Epithelial Cells - UA 0-5 SEEN /hpf (5-10); White Blood Cells 0-5 SEEN /hpf (0-5)
[2020-01-04 11:06] LABS: Anion Gap 5 (5-15); BUN 12 mg/dL (7-18); BUN/Creat Ratio 13.4 RATIO (10-20); Calcium,Total 8.5 mg/dL (8.5-10.1); Chloride 102 mmol/L (98-107); Creatinine, Serum 0.89 mg/dL (0.55-1.02); EST Glomerular Filtration Rate 64 mL/min (>60); Est Glom Filt Rate - Afr Amer 78 mL/min (>60); Glucose 203 mg/dL (74-106); Potassium 3.5 mmol/L (3.5-5.1); Sodium Level 136 mmol/L (136-145)
[2020-01-04 12:20] VITALS: BMI 19.8
[2020-01-07 08:42] VITALS: BMI 19.8
--- NOTE | 2020-01-10 12:33 | CL.IE_ITS ---
Patient: SRINIVAS KWON Study Date: 01/10/2020 Performing: Zay Bautista MD : 1935 Age: 84 Gender: female PROCEDURES PERFORMED [id number] REMOVAL+REPLACEMENT PACER-DUAL LEAD INDICATIONS End-of-life replacement indicator PROCEDURE DETAILS The patient was brought to the Catheterization Lab in the postabsorptive nonsedated state. Infor med consent was obtained prior to the procedure. Local anesthetic was given subcutaneously to the le ft upper chest area with Lidocaine 2%. Incision was made to the left upper chest. PPM generator was r emoved. PPM ventricular lead (existing) was checked and tested. PPM atrial lead (existing) was checke d and tested. PPM generator was attached to the lead(s) and inserted into the pocket. Device pocket w as irrigated with antibiotic. Subcutaneous closure was completed with 3-0 Vicryl. Skin closure was co mpleted with 4-0 Vicryl. Steri-strips applied to Lt chest area. The patient tolerated the procedure well. Estimated Blood Loss: 10 ml's IMPLANTED / EX-PLANTED DEVICES IMPLANTED DEVICE(S): PPM Generator - Feeder/Folder: [employer], Model # [id number] , Serial # [id number] DEVICE PARAMETERS DEVICE PARAMETERS: Mode- DDD Lower rate- 60 Upper rate- 120 CONCLUSIONS / RECOMMENDATIONS Device Conclusions: Successful implantation of a dual chamber pacemaker battery change and replacemen t Device Recommendations: Follow up with Primary Care Physician PROCEDURE MEDICATIONS Fentanyl 25 mcg IV Versed 0.5 mg IV Versed 0.5mg IV Fentanyl 25 mcg IV Oxygen: 2 L/min via nasal cannula Antibiotic given in appropriate timeframe. Clindamycin 900 mg IV 01/10/2020 11:15:56 Signed By Zay Bautista MD On 01/10/2020 13:31:51 Zay Bautista MD
== END 2020-01-10 13:45 | disposition home or self-care (01) ==
LOC: CLSP 10:04
PROVIDERS: PCP Family Medicine; Referring Provider Internal Medicine Cardiovascular Disease; Visit Provider Internal Medicine Cardiovascular Disease
DX: T82.9XXA Unspecified complication of cardiac and vascular prosthetic device, implant and graft, initial encounter (principal); I44.2 Atrioventricular block, complete; E78.5 Hyperlipidemia, unspecified; F32.9 Major depressive disorder, single episode, unspecified; M81.0 Age-related osteoporosis without current pathological fracture; Z82.49 Family history of ischemic heart disease and other diseases of the circulatory system; Z79.82 Long term (current) use of aspirin; I47.1 Supraventricular tachycardia
CPT/HCPCS: 33228; 36415; 80048; 81001; 85027; 85610; 99152; 99153; J7040; J7050

== ENCOUNTER 2020-01-12 10:00 | Outpatient (RCR) | payer MEDICARE, SELFPAY ==
[2019-12-06 10:04] VITALS: BMI 20.3
--- NOTE | 2019-12-15 10:21 | HP.OTEVAL ---
Patient's Visit Information SRINIVAS KWON is a 84 year old F, referred to Occupational Therapy by Dr. Nehemiah Gross DO, with a diagnosis of left distal radius fx ORIF. Date of Evaluation: 12/15/19 Occupational Therapist: MICKIE Majano/Moiz, CHT - Subjective This 84 year old female was seen for OT eval with dx of left distal radius fx. ORIF on 11/23/2019 pt 2 weeks 2 days from sx. pt arrives with spouse brace on left wrist and edema of left hand. pt currently limited with ROM and use of left hand due to healing structures. - Pain left wrist 5 Pain Intensity Range: 1, 6 - ROM Wrist: right 65/60 left 30/30 Opposition: right 10 left 8 - Strength Manager Inside: right 30# left 2# Lateral Pinch: right 6# left 2# Tripod Pinch: right 6# left NT Strength Comments: will test pt at 6 weeks s/p - Edema Wrist: right 14.5cm left 17cm PIP: right MF 5.5 left MF 6.5 Proximal Phalanx: right 18cm left 18.5cm - Quick DASH-Disab of Arm,Shoulder& Hand Quick DASH Score: 63.6350 - Goals Goal:: will initiate strengthening at 6 weeks s/p* pt will demo a increase in left windows support engineer strength to 30# to increase pts ind. with ADLs and IADls by d/c Goal:: pt will demo a increase in left wrist ROM by 15* or greater to return pt to PLOF by d/c Goal:: pt will report no pain greater than 1/10 with use of right UE with ADLs and IADSl Goal:: pt will demo a reduction in edema by 2 cm or greater to decrease risk of limitations with digit and wrist ROM by 4 weeks s/p - Rehabilitation General Assessment: Pt s/p 2weeks 2 days right distal radius ORIF of left. she demo with limited ROM, edema and strength. this has increased her need of assist with ADLs and IADLS at this time. Pt would benefit from skilled OT services 1-2x week for 6 weeks to assist pt in reduction of edema, improve ROM and strength to return pt to PLOF. Today therapist ed. pt on digit ROM , edema control with contrast bath/ or ice for 10 min. pt and pts spouse demo understanding and agree to POC. Rehabilitation Potential: Good - Anticipated Interventions A/AAROM/PROM, Strengthening, Edema Control, Scar Care, Triggerpoint Release, Desensitization, Modalities, Orthoses, Joint Protection/Energy Conservation, Ergonomic Education, Caregiver Training - Visit Plan Frequency: 1-2x /Week Duration: 6 Weeks TEXT: Thank you for the opportunity to evaluate your patient. For Medicare and Medicare HMO plans, please review the plan of care and approve it. It will need to be FAXED BACK to us at [phone] for Medicare purposes. Please let me know if there are questions or concerns regarding this plan of care. Physician Signature: Date:
--- NOTE | 2020-01-12 10:26 | HP.OTDCSUM_ITS ---
It has been my pleasure to treat SRINIVAS KWON under orders from Dr. Nehemiah Gross DO, for the diagnosis of left wrist distal radius fx ORIF 11/23/19 for a total of 6 visit(s). Please see the following information for a summary of their discharge status. Objective/Function: left wrist 60/60. left forearm sup/pron WNL. left diversified crops supervisor 25# pt has pain around thumb with resistive testing. pt denies pain in wrist - pt reports weakness does not limit her. pt agrees to cont. strengthening as to what she can melissa. Patient Goals: Regain Mobility, Regain Strength, Decrease Swelling/Stiffness, Improve Fine Motor Skills, Use Hand/Wrist/Arm Normally Again, Be More Independent in ADLS Goal:: will initiate strengthening at 6 weeks s/p* pt will demo a increase in left diversified crops supervisor strength to 30# to increase pts ind. with ADLs and IADls by d/c Goal:: pt will demo a increase in left wrist ROM by 15* or greater to return pt to PLOF by d/c Goal:: pt will report no pain greater than 1/10 with use of right UE with ADLs and IADSl Goal:: pt will demo a reduction in edema by 2 cm or greater to decrease risk of limitations with digit and wrist ROM by 4 weeks s/p Plan: cont light stretching and light gripping Discharge Comments: Pt was seen for 6 OT visits following a left wrist fx. Pt made good gains in ROM and strength and has reported she is ind. with ADLs and IADLS. Pt to cont with HEP to continue to gain strength. If there are questions or concerns regarding this patient's occupational therapy, please fell free to call me at [phone]. Thank you for the referral of this patient. Sincerely, Gabby Gutierrez, OTR/L, CHT
== END 2020-01-12 19:00 | disposition home or self-care (01) ==
LOC: OT 10:00
PROVIDERS: PCP Family Medicine; Referring Provider Orthopaedic Surgery; Visit Provider Orthopaedic Surgery
DX: S52.502D Unspecified fracture of the lower end of left radius, subsequent encounter for closed fracture with routine healing (principal)
CPT/HCPCS: 97110; 97140; 97166; 97530

== ENCOUNTER → 2020-02-23 08:08 | Outpatient (CLI) | payer MEDICARE, SELFPAY ==
[2020-01-31 08:01] VITALS: BMI 19.8
--- NOTE | 2020-02-23 08:10 | BI_ITS ---
MAMMOGRAPHY - BILATERAL SCREENING REASON FOR EXAM: Female, 84 years old. Routine annual screening examination. PERTINENT HISTORY: FM HX MOTHER 79,LT PACEMAKER, RT EXC BX 40+ YRS AGO, BILAT MOLES MARKED TECHNIQUE: Digital bilateral breast almaz (3D mammographic acquisition) in the CC and MLO projections. 2-D mediolateral oblique (MLO) and craniocaudad (CC) views of both breasts were obtained. CAD: Full Field Digital Mammography with Computer Added Detection was performed. COMPARISON: 08/09/2009 FINDINGS: Breast Composition: There are scattered areas of fibroglandular density. There are no dominant masses or suspicious calcifications. No other significant abnormalities are identified. BI/SCREEN MAMM (CAD) W/ALMAZ BILAT IMPRESSION: Stable bilateral screening mammogram. Yearly follow-up mammogram recommended. (A) ASSESSMENT CATEGORY: BIRADS Category 2: Benign. A letter regarding these results will be sent to the patient by the facility within 30 days. Approximately 10% of breast cancers are not detected by mammography. A normal mammogram should not delay biopsy of a clinically suspicious abnormality. [id number] Electronically Signed: Pia Estevez, at 13:53 EDT Tel , Service support ,
== END ==
PROVIDERS: PCP Family Medicine; Referring Provider Family Medicine; Visit Provider Family Medicine
DX: Z12.31 Encounter for screening mammogram for malignant neoplasm of breast (principal)
CPT/HCPCS: 77063; 77067

== ENCOUNTER → 2020-07-11 08:16 | Outpatient (CLI) | payer MEDICARE, SELFPAY ==
[2020-01-31 08:01] VITALS: BMI 19.8
[2020-07-11 09:25] LABS: AST(SGOT) 24 U/L (15-37); Alanine Aminotransfer ALT/SGPT 18 U/L (13-56); Albumin, Serum 3.6 g/dL (3.2-5.0); Alkaline Phosphatase 77 U/L (45-117); Bilirubin, Direct 0.15 mg/dL (0.00-0.30); Cholesterol 267 mg/dL (200); High Density Lipoprotein 71 mg/dL; Protein, Total 6.6 g/dL (6.4-8.2); Triglycerides 144 mg/dL; Very Low Density Lipoprotein 29 mg/dL (5-40)
== END ==
PROVIDERS: PCP Family Medicine; Referring Provider Internal Medicine Cardiovascular Disease; Visit Provider Internal Medicine Cardiovascular Disease
DX: E78.00 Pure hypercholesterolemia, unspecified (principal)
CPT/HCPCS: 36415; 80061; 80076

== ENCOUNTER 2021-04-04 15:37 | Emergency (ER) | payer MEDICARE, SELFPAY ==
[2021-04-04 15:38] VITALS: BP 162/89; PULSE 90; RESP 16; TEMP 36.3; O2SAT 99; BMI 19.0
--- NOTE | 2021-04-04 17:48 | CT_ITS ---
STUDY: CT FACIAL BONES WITHOUT CONTRAST REASON FOR EXAM: Female, 85 years old. Trauma RADIATION DOSAGE (If Supplied By Facility): CTDIvol = ( 29.38 ) mGy, DLP = ( 503.38 ) mGycm TECHNIQUE: The patient was scanned in a multi detector CT scanner. Sagittal and coronal images were reconstructed. Individualized dose optimization techniques were used for this CT. COMPARISON: None. FINDINGS: Right periorbital soft tissue swelling is noted. There is an acute depressed fracture of the right orbital floor resulting intraorbital air and herniation of orbital fat through the bony defect. There is associated mucosal thickening in the right maxillary sinus as well as intrasinus hemorrhage.. Normal nasal bones and anterior nasal spine. CT/Sinus/Facial Bone IMPRESSION: Blowout fracture of the right orbital floor with intrasinus hemorrhage in the right maxillary antrum No other acute facial bone fracture Electronically Signed: Marc Bal MD at 18:45 EST , Service support ,
--- NOTE | 2021-04-04 17:48 | RAD_ITS ---
STUDY: X-RAY - UNILATERAL RIBS ( RIGHT ) WITH CHEST REASON FOR EXAM: Female, 85 years old. Trauma TECHNIQUE - RIBS: 4 view(s) of the ribs. TECHNIQUE - CHEST: . PA COMPARISON: None. FINDINGS - RIBS: There appears to be posttraumatic deformity of the lower lateral rib cage with associated fracture although it is difficult to determine which rib is broken FINDINGS - CHEST: Elevated left hemidiaphragm and mild discoid atelectasis in left lower lobe. Minor discoid atelectasis at the right base there There is no demonstrated pleural abnormality. Normal size heart. Normal mediastinum and dick. Normal visualized pulmonary arteries. Tortuous mildly calcified aortic arch and descending thoracic aorta. Normal visualized thoracic spine. Normal visualized , clavicles, and shoulders. There is no demonstrated abnormality of the visualized soft tissue structures of the upper abdomen. RAD/Ribs Uni Min 3V w/PA Chest IMPRESSION: RIBS: Apparent posttraumatic deformity of the right rib cage with apparent fracture of the lower lateral ribs. No associated pneumothorax. CT would be helpful for further evaluation however if clinically warranted CHEST: No acute cardiopulmonary pathology. Electronically Signed: Marc Bal MD at 19:04 EST , Service support ,
--- NOTE | 2021-04-04 17:48 | CT_ITS ---
STUDY: CT BRAIN WITHOUT CONTRAST REASON FOR EXAM: Female, 85 years old. Trauma RADIATION DOSAGE (If Supplied By Facility): CTDIvol = ( 44.99 ) mGy, DLP = ( 796.11 ) mGycm TECHNIQUE: Transaxial CT imaging of the brain was performed without administration of intravenous contrast material. Individualized dose optimization techniques were used for this CT. COMPARISON: No relevant priors. FINDINGS: Normal soft tissue structures. Normal calvarium. Calcification of cavernous carotids. Moderate atrophy and periventricular white matter ischemic changes.. Normal basal ganglia and thalami. Normal brainstem. Normal cerebellum. There is no intracranial hemorrhage. There are no findings of an acute ischemic infarction. Right periorbital soft tissue swelling is seen associated with intraorbital air and hemorrhage in the right maxillary sinus suggesting orbital floor fracture. CT of the facial bones recommended CT/Brain/Head without Contrast IMPRESSION: Atrophy and periventricular white matter ischemic changes without evidence for acute bleed. Findings suspicious for right orbital floor fracture. CT recommended. Electronically Signed: Marc Bal MD at 18:43 EST , Service support ,
--- NOTE | 2021-04-04 17:50 | ED.VIS.FALL ---
HPI HPI - Fall History of Present Illness Chief Complaint: Fall Informant: patient and spouse/S.O. Occured/Mechanism Occurred: Today Mechanism/Context: Yes trip Narrative: Patient tripped and fell and landed on concrete. Usually ambulates: Without assistance Pain/Injury Location: Head, face, right ribs Pain Location: head, face and chest (Right) Quality of Pain: Sharp, Aching and Burning Worsened by: Nothing Relieved by: Nothing Associated Symptoms Associated Symptoms: Negative for Parasthesias, Inability to ambulate and Loss of consciousness Narrative Narrative: Patient presents after a fall that occurred today. Patient states she tripped and fell. Patient states she landed on concrete. Patient states she hit her face and right ribs. Patient thinks she hit her ribs on the edge of a fence. Patient denies any loss of consciousness. Patient describes her pain as sharp and aching. Patient states nothing makes it better and nothing makes it worse. Patient was able to ambulate after the fall without difficulty. reports patient's last tetanus was within 5 years. PFSH PFS Medical History Anemia Bronchiectasis Chest pain, unspecified Chronic cough Complete heart block DDD (degenerative disc disease) Depression Essential (primary) hypertension HLD (hyperlipidemia) Near syncope Osteoporosis Paroxysmal atrial tachycardia Shortness of breath Visual loss Home Medications aspirin 81 mg PO DAILY@0800 05/01/17 [History Last Taken 05/18/17] acetaminophen 1,000 mg PO Q8H PRN PRN #100 tab 11/23/19 [Rx Last Taken Unknown] montelukast 10 mg tablet 10 mg PO DAILY tab 01/04/20 [History Last Taken Unknown] atorvastatin 80 mg tablet 80 mg PO QDAY #90 tab 08/25/20 [Rx Last Taken Unknown] buspirone 7.5 mg tablet 7.5 mg PO BID 10/06/20 [History Last Taken Unknown] lisinopril 20 mg tablet 10 mg PO BID tab 10/06/20 [History Last Taken Unknown] Allergy/AdvReac Type Severity Reaction Status Date / Time codeine Allergy Unknown Verified 04/04/21 15:40 Penicillins Allergy Unknown Verified 04/04/21 15:40 Sulfa (Sulfonamide Allergy Unknown Verified 04/04/21 15:40 Antibiotics) Family History Father , at age 82 CVA (cerebral vascular accident) CAD (coronary artery disease) Mother CAD (coronary artery disease) stomach aneurysm Brother Myocardial infarction CAD (coronary artery disease) CABG Sister CAD (coronary artery disease) Surgical History H/O shoulder surgery History of bunionectomy History of left heart catheterization History of open reduction and internal fixation (ORIF) procedure (11/2019) 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) History of right and left heart catheterization Social History Smoking Status: Never smoker alcohol intake: never substance use type: does not use caffeine: Yes Type: carbonated beverages and coffee what type of physical activity do you participate in: none seatbelt use: always do you feel safe at home: Yes ROS ROS ED Constitutional Constitutional ED: Denies chills or fever(s) Eyes Eyes: Denies blurry vision or change in vision ENT ENT ED: Denies rhinorrhea or sore throat Cardiovascular Cardiovascular: Reports chest pain; Denies palpitations Respiratory/Chest Respiratory/Chest: Denies cough or dyspnea Gastrointestinal Gastrointestinal: Denies nausea or vomiting Genitourinary Genitourinary ED: Denies dysuria or hematuria Musculoskeletal Musculoskeletal: Denies back pain or neck pain Integumentary Denies abscess or rash Neurologic Neurologic: Reports headache(s); Denies weakness Allergic/Immunologic Allergic/Immunologic ED: Denies mouth swelling or urticaria EXAM Physical Exam Const Vital Signs: 04/04/21 15:38 04/04/21 17:04 04/04/21 19:00 Temperature 97.4 F L Temperature Source Temporal Pulse Rate 90 Respiratory Rate 16 Respiratory Effort Normal Respiratory Depth Normal Respiratory Pattern Normal Blood Pressure 162/89 H Blood Pressure Mean 113 Pulse Ox 99 98 Oxygen Delivery Method Room Air Room Air Room Air Positive well nourished and well developed General Appearance ED: well developed HEENT HEENT Narrative: There is a 2 cm laceration above the right eyebrow. There is minimal gapping of the wound margins. There is no active bleeding. There is some edema and ecchymosis in the right periorbital area. There is also tenderness of the right upper lip. There is a superficial laceration on the mucosal surface. Teeth are intact. trauma Eyes PERRL and EOMs intact bilaterally Neck full ROM Chest Wall Chest Narrative: There is tenderness of the right lower ribs. There is no bony crepitance or step-off. Resp normal respiratory effort and clear to auscultation bilaterally Cardio regular rate and regular rhythm GI non-tender Palpation: soft Extremity normal to inspection and full ROM Neuro oriented x3, CN's II-XII intact bilaterally, moves all extremities and no focal motor deficits Sensorium / Orientation: alert Psych mental status grossly normal MDM MDM MDM Narrative Medical decision making narrative: CT scan of the brain was obtained. There is no acute intracranial abnormality. This was interpreted by the radiologist and reviewed by myself. CT scan of the facial bones was obtained. There is an orbital floor fracture on the right. There are no other fractures noted. X-rays of the right ribs were obtained. There are 5 views. On my interpretation, there is a nondisplaced fracture of the sixth rib. There is no pneumothorax. There is no acute cardiopulmonary disease. Radiologist also interpreted the x-rays and agrees. The right eyebrow laceration was cleaned and closed with Dermabond skin adhesive. The laceration of the upper lip was cleaned and anesthetized 1% lidocaine locally. It was closed with 1 simple interrupted #4-0 Vicryl subcutaneous suture. Patient tolerated the procedure well. Patient was instructed to avoid blowing her nose. Patient was instructed to rinse her mouth with water or saline frequently. Patient was instructed to follow-up with her primary care physician in 5 to 7 days. Patient was also given referral for ophthalmology for follow-up of her orbital floor fracture. Patient and family understood and were agreeable with the plan. All questions were answered. Radiography Diagnostic Testing: Clinical Impression(s) from Imaging Studies Brain CT 04/04/21 17:48 IMPRESSION: Atrophy and periventricular white matter ischemic changes without evidence for acute bleed. Findings suspicious for right orbital floor fracture. CT recommended. Electronically Signed: Marc Bal MD at 18:43 EST , Service support , Facial/Sinus 04/04/21 17:48 IMPRESSION: Blowout fracture of the right orbital floor with intrasinus hemorrhage in the right maxillary antrum No other acute facial bone fracture Electronically Signed: Marc Bal MD at 18:45 EST , Service support , Ribs w/Chest X-Ray 04/04/21 17:48 IMPRESSION: RIBS: Apparent posttraumatic deformity of the right rib cage with apparent fracture of the lower lateral ribs. No associated pneumothorax. CT would be helpful for further evaluation however if clinically warranted CHEST: No acute cardiopulmonary pathology. Electronically Signed: Marc Bal MD at 19:04 EST , Service support , Procedures Lacerations Right eyebrow: Length: 2 cm Depth: Skin Shape: Linear Prep: Sterile Conditions and Chlorhexadine Laceration repair: Dermabond Upper lip: Length: 1 cm Depth: Sub Q Shape: Linear Prep: Sterile Conditions and Chlorhexadine Laceration repair: Lidocaine, Local, Subcutaneous sutures and Wound explored Number of Sutures/[place]: 1 Suture Information: Vicryl and 4-0 Discharge Plan Triage Chief Complaint: Fall ED Provider: Teja Cruz Dx/Rx/DC Orders Clinical Impression: Closed blow-out fracture of right orbital floor, Laceration of right eyebrow, Laceration of lip, Right rib fracture Instructions: ED Facial Fracture, ED Rib Fracture, ED Laceration, Face: Skin Glue, ED Laceration, Lip or Mouth Prescriptions: No Action montelukast 10 mg tablet 10 mg PO DAILY RF: 0 buspirone 7.5 mg tablet 7.5 mg PO BID RF: 0 lisinopril 20 mg tablet 10 mg PO BID RF: 0 aspirin 81 MG tablet,chewable 81 mg PO DAILY@0800 RF: 0 acetaminophen 500 MG tablet 1,000 mg PO Q8H PRN PRN (Reason: Pain Score 4-10/10) Qty: 100 RF: 0 atorvastatin [Lipitor] 80 mg tablet 80 mg PO QDAY Qty: 90 RF: 3 Primary Care Provider: Sagar Murray Referrals: Jase Heard MD [STAFF PHYSICIAN] - 3-5 Days Sagar Murray MD [Primary Care Provider] - 3-5 Days Activity Restrictions/Additional Instructions: Take 10-15 deep breaths every hour while you are awake to prevent pneumonia. Avoid blowing your nose. Do not apply any bacitracin, Neosporin, triple antibiotic ointment, or other Vaseline-based ointments to the laceration above your eyebrow as it will break down the glue. Disposition Disposition: Home, Self Care
[2021-04-04 19:00] VITALS: O2SAT 98
[2021-04-04] MEDS: Lidocaine 1% (20 ml mdv) 20 ML Vial INFILT (20:31)
[2021-04-04 20:42] VITALS: O2SAT 97
== END 2021-04-04 20:42 | disposition home or self-care (01) ==
PROVIDERS: Emergency Provider Emergency Medicine; PCP Family Medicine
DX: S01.111A Laceration without foreign body of right eyelid and periocular area, initial encounter (principal); S22.31XA Fracture of one rib, right side, initial encounter for closed fracture; S02.31XA Fracture of orbital floor, right side, initial encounter for closed fracture; S01.511A Laceration without foreign body of lip, initial encounter; W01.0XXA Fall on same level from slipping, tripping and stumbling without subsequent striking against object, initial encounter; D64.9 Anemia, unspecified; E78.5 Hyperlipidemia, unspecified; F32.A Depression, unspecified; I10 Essential (primary) hypertension; I44.2 Atrioventricular block, complete; I47.1 Supraventricular tachycardia; Z79.82 Long term (current) use of aspirin
CPT/HCPCS: 70450; 70486; 71101; 99282

== ENCOUNTER → 2021-04-25 11:30 | Outpatient (CLI) | payer MEDICARE, SELFPAY ==
[2021-04-25 12:57] LABS: Absolute Lymphocyte Count 0.95 X10^3/uL (0.83-4.51); Absolute Neutrophil Count 3.7 X10^3/uL (2.0-7.7); Basophil# 0.06 X10^3/uL; Basophil% 1.1 % (0-1); Eosinophil# 0.07 X10^3/uL; Eosinophils% 1.3 % (0-5); Hematocrit 41.6 % (37-47); Hemoglobin 13.1 g/dL (12.0-15.0); Lymphocyte # 0.95 X10^3/ul (0.83-4.51); Lymphocyte % 17.5 % (19-41); Mean Corp Hgb Conc 31.5 g/dL (32-36); Mean Corpuscular Hgb 27.9 pg (27.0-32.0); Mean Corpuscular Volume 88.5 fL (81-99); Mean Platelet Vol. 9.8 fl (6.2-12.0); NRBC Flagged by Analyzer 0 % (0-5); Neutrophil # 3.73 X10^3/uL (2.7-7.7); Neutrophil % 68.7 % (47-70); Platelet Count 220 K/mm3 (150-450); RBC Distribution Width CV 14.5 % (11.6-14.6); RBC Distribution Width SD 46.7 fl (35.1-43.9); White Blood Count 5.4 K/mm3 (4.4-11.0)
[2021-04-25 13:23] LABS: ALB/GLOB Ratio 1.2 RATIO (0.9-2.4); AST(SGOT) 26 U/L (15-37); Alanine Aminotransfer ALT/SGPT 18 U/L (13-56); Albumin, Serum 3.6 g/dL (3.2-5.0); Alkaline Phosphatase 87 U/L (45-117); Anion Gap 7 (5-15); BUN 13 mg/dL (7-18); Calcium,Total 9.1 mg/dL (8.5-10.1); Chloride 108 mmol/L (98-107); Cholesterol 264 mg/dL (200); Creatinine, Serum 0.76 mg/dL (0.55-1.02); EST Glomerular Filtration Rate 77 mL/min (>60); Est Glom Filt Rate - Afr Amer 93 mL/min (>60); Globulin 3.1 g/dL (2.2-4.2); Glucose 91 mg/dL (74-106); High Density Lipoprotein 63 mg/dL; Protein, Total 6.7 g/dL (6.4-8.2); Sodium Level 144 mmol/L (136-145); Triglycerides 165 mg/dL; Very Low Density Lipoprotein 33 mg/dL (5-40)
== END ==
PROVIDERS: PCP Family Medicine; Visit Provider Physician Assistant Medical
DX: E78.2 Mixed hyperlipidemia (principal); I10 Essential (primary) hypertension; Z95.0 Presence of cardiac pacemaker
CPT/HCPCS: 36415; 80053; 80061; 85025

== ENCOUNTER → 2022-02-06 | Outpatient (CLI) | payer MEDICARE, SELFPAY ==
[2022-02-06 10:55] LABS: AST(SGOT) 22 U/L (15-37); Alanine Aminotransfer ALT/SGPT 14 U/L (13-56); Albumin, Serum 3.5 g/dL (3.2-5.0); Alkaline Phosphatase 72 U/L (45-117); Bilirubin, Direct 0.12 mg/dL (0.00-0.30); Cholesterol 256 mg/dL (200); Globulin 3.1 g/dL (2.2-4.2); High Density Lipoprotein 57 mg/dL; Protein, Total 6.6 g/dL (6.4-8.2); Triglycerides 146 mg/dL; Very Low Density Lipoprotein 29 mg/dL (5-40)
== END | disposition home or self-care (01) ==
PROVIDERS: Referring Provider Internal Medicine Cardiovascular Disease; Visit Provider Internal Medicine Cardiovascular Disease
DX: E78.00 Pure hypercholesterolemia, unspecified (principal)
CPT/HCPCS: 36415; 80061; 80076

== ENCOUNTER → 2022-08-05 | Outpatient (CLI) | payer OTHER, SELFPAY | END | disposition home or self-care (01) | LOC: LABSPEC 15:28 | PROVIDERS: Referring Provider Nurse Practitioner Family; Visit Provider Nurse Practitioner Family | DX: R39.15 Urgency of urination (principal) | CPT/HCPCS: 87077; 87086; 87088; 87186 ==

== ENCOUNTER → 2022-08-16 | Outpatient (CLI) | payer OTHER, SELFPAY ==
[2022-08-16 10:22] LABS: ALB/GLOB Ratio 1.3 RATIO (0.9-2.4); AST(SGOT) 31 U/L (15-37); Alanine Aminotransfer ALT/SGPT 19 U/L (13-56); Albumin, Serum 3.8 g/dL (3.2-5.0); Alkaline Phosphatase 84 U/L (45-117); Anion Gap 6 (5-15); BUN 16 mg/dL (7-18); Bilirubin, Direct 0.18 mg/dL (0.00-0.30); Calcium,Total 8.9 mg/dL (8.5-10.1); Chloride 104 mmol/L (98-107); Cholesterol 217 mg/dL (200); Creatinine, Serum 0.84 mg/dL (0.55-1.02); EST Glomerular Filtration Rate 68 mL/min (>60); Est Glom Filt Rate - Afr Amer 83 mL/min (>60); Glucose 91 mg/dL (74-106); High Density Lipoprotein 61 mg/dL; Protein, Total 6.8 g/dL (6.4-8.2); Sodium Level 136 mmol/L (136-145); Triglycerides 99 mg/dL; Very Low Density Lipoprotein 20 mg/dL (5-40)
== END | disposition home or self-care (01) ==
LOC: MTLAB 08:42
PROVIDERS: Nurse Practitioner Family; PCP Family Medicine; Referring Provider Physician Assistant Medical; Visit Provider Physician Assistant Medical
DX: E78.2 Mixed hyperlipidemia (principal)
CPT/HCPCS: 80053; 80061; 82248

== ENCOUNTER 2022-10-08 17:26 | Emergency (ER) | payer OTHER, SELFPAY ==
[2022-10-08 17:26] VITALS: BP 133/82; PULSE 76; RESP 16; TEMP 36.6; O2SAT 98; BMI 16.7
--- NOTE | 2022-10-08 18:58 | CT_ITS ---
EXAM: CT HEAD WITHOUT INTRAVENOUS CONTRAST CLINICAL INDICATION: headache, dzziness TECHNIQUE: Multiple axial images were obtained of the head without intravenous contrast. This CT exam was performed using one or more of the following dose reduction techniques: automated exposure control, adjustment of the mA and/or kV according to patient size, and/or use of iterative reconstruction technique. COMPARISON: 04/04/2021 FINDINGS: BRAIN AND EXTRA-AXIAL SPACES: There is enlargement of ventricular system and cortical sulci. There is hypoattenuation in the periventricular white matter. No intra- or extra-axial hemorrhage. No evidence of acute infarct. No intracranial mass or mass effect. There is preservation of the hdez/white matter interface. Posterior fossa structures are unremarkable. Basal cisterns are patent. BONES/JOINTS: Unremarkable. No discrete lytic or blastic abnormalities. SINUSES: Unremarkable as visualized. Clear. MASTOID AIR CELLS: Unremarkable. Clear. ORBITS: Visualized globes, extraocular muscles, optic nerves and retrobulbar fat appear unremarkable. CT/Brain/Head without Contrast IMPRESSION: 1. No acute intracranial abnormality. There has been no significant change from the reference examination. 2. Stable underlying senescent change with small vessel ischemia. Electronically Signed: Shaq Jolley MD at 20:12 EDT ,
--- NOTE | 2022-10-08 18:59 | EKG12_ITS ---
Test Reason : DYSRHYTHMIA Blood Pressure : / mmHG Vent. Rate : 080 BPM Atrial Rate : 080 BPM P-R Int : 150 ms QRS Dur : 156 ms QT Int : 494 ms P-R-T Axes : 045 -63 101 degrees QTc Int : 569 ms Atrial-sensed ventricular-paced rhythm with occasional Premature ventricular complexes Abnormal ECG Confirmed by WALLY REDD, LEIGH ([id number]), supervising editor trailer FOREST BROWN ([id number]) on 10/10/2022 8:56:19 AM Referred By: NOREEN Confirmed By:LEIGH LO MD
--- NOTE | 2022-10-08 19:00 | EX.ED.DYSGE1 ---
HPI History of Present Illness Chief Complaint: Weakness Detail of Chief Complaint: Generalized weakness Informant: patient, spouse/S.O. and family Narrative Narrative: Patient presents to the emergency department with her and daughter who states that she has been just generally weak over the last week or so. Patient has lost about 12 to 13 pounds in the last 10 days. She is not wanting to eat. She was seen by primary care physician and had a urinalysis today apparently straight cath specimen that looked infected and they were advised to come to the emergency department. Patient also has been complaining of headache and dizziness usually in the morning. Patient does have history of dementia and is somewhat of a poor historian. She denies any chest pain or abdominal pain. She had no vomiting or diarrhea. She has had no fever. Patient apparently very weak. [facility] Medical History (Updated 10/08/22 @ 23:[address] Enrique Joe, ) Anemia Bronchiectasis Chest pain, unspecified Chronic cough Complete heart block DDD (degenerative disc disease) Depression Essential (primary) hypertension HLD (hyperlipidemia) Near syncope Osteoporosis Paroxysmal atrial tachycardia Shortness of breath Visual loss Home Medications acetaminophen 500 mg tablet 1,000 mg PO Q8H PRN PRN Pain Score 4-10/10 #100 tabs 11/23/19 [Rx Last Taken Unknown] montelukast 10 mg tablet 10 mg PO DAILY 01/04/20 [History Last Taken Unknown] buspirone 7.5 mg tablet 7.5 mg PO BID 10/06/20 [History Last Taken Unknown] aspirin 81 mg chewable tablet 81 mg PO DAILY HEALTH MAINTENANCE 04/25/21 [History Last Taken Unknown] citalopram 40 mg tablet 20 mg PO DAILY 04/25/21 [History Last Taken Unknown] amlodipine 10 mg tablet 10 mg PO DAILY #30 tabs 01/31/22 [Rx Last Taken Unknown] donepezil 10 mg tablet 10 mg PO DAILY 01/31/22 [History Last Taken Unknown] lisinopril 10 mg tablet 15 mg PO DAILY 01/31/22 [History Last Taken Unknown] atorvastatin 40 mg tablet 40 mg PO QDAY #90 tabs 08/01/22 [Rx Last Taken Unknown] Allergy/AdvReac Type Severity Reaction Status Date / Time codeine Allergy Unknown Verified 10/08/22 17:29 Penicillins Allergy Unknown Verified 10/08/22 17:29 Sulfa (Sulfonamide Allergy Unknown Verified 10/08/22 17:29 Antibiotics) Family History Father , at age 82 CVA (cerebral vascular accident) CAD (coronary artery disease) Mother CAD (coronary artery disease) stomach aneurysm Brother Myocardial infarction CAD (coronary artery disease) CABG Sister CAD (coronary artery disease) Surgical History H/O shoulder surgery History of bunionectomy History of left heart catheterization History of open reduction and internal fixation (ORIF) procedure (11/2019) 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) History of right and left heart catheterization Social History Smoking Status: Never smoker alcohol intake: never substance use type: does not use caffeine: Yes Type: carbonated beverages and coffee what type of physical activity do you participate in: none seatbelt use: always do you feel safe at home: Yes ROS ROS ED Review of Systems ROS Unobtainable: other Constitutional Constitutional ED: Reports lethargy; Denies chills, fever(s), sweats or weight loss Eyes Eyes: Denies blurry vision, change in vision or diplopia ENT ENT ED: Denies rhinorrhea or sore throat Cardiovascular Cardiovascular: Denies chest pain, orthopnea or racing heartbeat Respiratory/Chest Respiratory/Chest: Denies cough, dyspnea, dyspnea on exertion, orthopnea or sputum Gastrointestinal Gastrointestinal: Denies abdominal pain, diarrhea, nausea or vomiting Genitourinary Genitourinary ED: Denies dysuria, hematuria or urinary frequency Musculoskeletal Musculoskeletal: Denies arthralgias, back pain, myalgias or neck pain Integumentary Denies abscess, Abrasions or rash Neurologic Neurologic: Reports weakness; Denies headache(s) Psychiatric Psychiatric: Denies anxiety, depression or suicidal thoughts Endocrine Endocrinology: Denies polydipsia, polyphagia or polyuria Hematologic/Lymphatic Hematologic/Lymphatic: Denies easy bleeding, easy bruising or lymphadenopathy Allergic/Immunologic Allergic/Immunologic ED: Denies mouth swelling, tongue swelling or urticaria EXAM Physical Exam Const Vital Signs: 10/08/22 17:26 10/08/22 18:57 10/08/22 22:03 Temperature 97.8 F Temperature Source Tympanic Pulse Rate 76 86 Respiratory Rate 16 16 Respiratory Effort Normal Non-Labored Blood Pressure 133/82 H 139/76 H Blood Pressure Mean 99 97 Pulse Ox 98 97 Oxygen Delivery Method Room Air Room Air Positive well nourished and well developed General Appearance ED: well developed and NAD HEENT Reports TM's clear and moist mucous membranes normocephalic and atraumatic; Negative for trauma or tenderness Tympanic Membrane ED: Yes TM's clear Eyes PERRL and EOMs intact bilaterally General Eye ED: Negative for pale conjunctiva or scleral icterus Neck no lymphadenopathy, supple and no JVD General: Negative for tenderness Chest Wall inspection of chest normal and palpation of chest normal Chest: Negative for tenderness Resp normal respiratory effort and clear to auscultation bilaterally Effort and Inspection: Negative for respiratory distress or pain with movement Auscultation: Negative for rhonchi, wheezes or diminished lung sounds Cardio regular rate, regular rhythm, S1 normal heart sound, S2 normal heart sound and no murmurs Peripheral Pulses: pulses 2+ throughout GI normal to inspection, nondistended, normoactive bowel sounds, soft to palpation, non-tender, non-distended and no masses Back/Spine no CVA tenderness and no thoracic nor lumbar tenderness Extremity normal to inspection General Extremety ED: Negative for edema General Extremity: Negative for edema Neuro oriented x3, CN's II-XII intact bilaterally, no sensory deficits noted and gait normal Sensorium / Orientation: awake, alert, oriented to person, oriented to place and oriented to time Motor Exam: strength 5/5 throughout and strength abnormal Psych mental status grossly normal Skin no rashes or lesions noted and no wounds MDM MDM MDM Narrative Medical decision making narrative: Presents with family members concerned due to the fact that she has been having episodes of dizziness especially in the morning. She has not fallen or injured herself. Patient also was seen by primary care physician and referred to the ER after she had a urinalysis that was thought to be positive although this was only a dip urine. There was concern the patient will need to be admitted for IV antibiotics. Patient also has not been eating and has lost 12 to 13 pounds in last 10 days. On arrival she had an IV line established. CBC with dilatation of a white count of 7.1 with a hemoglobin of 14 and platelet count of 234. Chemistries were unremarkable other than a slightly depressed potassium of 3.0 for which I will write her for 40 mEq of potassium chloride. Lactate was normal. Did LFTs were normal. Urinalysis was positive for nitrites but only 0-5 WBCs and +1 bacteria. Urine culture was sent. Patient had a CT scan of the brain without contrast that was unremarkable just chronic age-related changes. Chest x-ray was unremarkable. Patient was given a liter of saline fluid bolus. Clinically she looks well. I discussed with family members at length they feel comfortable taking her home or if she is too weak for them to care for her or if they would entertain placement to extended care facility. Family does not want patient placed. They are comfortable taking her home and caring for her. I suspect there may be a component of progressive dementia. They will follow-up with her primary care physician within next 2 to 5 days. They will await culture results of her urine. Patient to return if increased weakness, falls, inability to care for self or condition should worsen anyway. Lab Data Attestation: I reviewed the patient's lab results. Labs: Laboratory Results - last 24 hr 10/08/22 10/08/22 10/08/22 19:05 19:05 19:05 WBC 7.1 RBC 5.07 Hgb 14.3 Hct 43.3 MCV 85.4 MCH 28.2 MCHC 33.0 RDW Std Deviation 41.1 RDW Coeff of Evelyn 13.2 Plt Count 234 MPV 9.8 Immature Gran % (Auto) 0.700 Neut % (Auto) 74.9 H Lymph % (Auto) 13.2 L [place] % (Auto) 9.8 Eos % (Auto) 0.8 Baso % (Auto) 0.6 Absolute Neuts (auto) 5.3 Absolute Lymphs (auto) 0.93 Nucleated RBC % 0 Sodium 137 Potassium 3.0 L Chloride 100 Carbon Dioxide 26.0 Anion Gap 11 BUN 12 Creatinine 0.78 Estim Creat Clear Calc 27.44 Est GFR (MDRD) Af Amer 90 Est GFR (MDRD) Non-Af 75 BUN/Creatinine Ratio 15.4 Glucose 99 Lactic Acid 0.8 Calcium 8.9 Total Bilirubin 0.70 AST 34 ALT 19 Alkaline Phosphatase 91 Troponin I High Sens 10 Total Protein 7.0 Albumin 3.9 Globulin 3.1 Albumin/Globulin Ratio 1.3 Radiography Diagnostic Testing: Clinical Impression(s) from Imaging Studies Brain CT 10/08/22 18:58 IMPRESSION: 1. No acute intracranial abnormality. There has been no significant change from the reference examination. 2. Stable underlying senescent change with small vessel ischemia. Electronically Signed: Shaq Jolley MD at 20:12 EDT , Chest X-Ray 10/08/22 20:00 IMPRESSION: No acute findings in the chest. Electronically Signed: Shaq Jolley MD at 20:12 EDT , 1 view chest x-ray obtained interpreted by myself no acute disease process. No evidence of infiltrate or pneumothorax. Radiology in agreement. EKG Initial EKG: Attestation: I personally reviewed and interpreted this EKG as follows: Comments: Atrially sensed and ventricularly paced rhythm with occasional PVCs Discharge Plan Triage Chief Complaint: Weakness ED Provider: Enrique Joe Dx/Rx/DC Orders Clinical Impression: Weakness, Dizziness Instructions: ED Dizziness, Uncertain Cause, ED Weakness (Uncertain Cause) Prescriptions: No Action montelukast 10 mg tablet 10 mg PO DAILY buspirone 7.5 mg tablet 7.5 mg PO BID citalopram 40 mg tablet 20 mg PO DAILY lisinopril 10 mg tablet 15 mg PO DAILY donepezil 10 mg tablet 10 mg PO DAILY amlodipine 10 mg tablet 10 mg PO DAILY Qty: 30 0RF atorvastatin 40 mg tablet 40 mg PO QDAY Qty: 90 3RF aspirin 81 mg tablet,chewable 81 mg PO DAILY acetaminophen 500 MG tablet 1,000 mg PO Q8H PRN PRN (Reason: Pain Score 4-10/10) Qty: 100 0RF Primary Care Provider: Debi Escobedo Referrals: Debi Escobedo, [Primary Care Provider] - 3-5 Days Disposition Disposition: Home, Self Care
[2022-10-08 19:19] LABS: Absolute Lymphocyte Count 0.93 X10^3/uL (0.83-4.51); Absolute Neutrophil Count 5.3 X10^3/uL (2.0-7.7); Basophil# 0.04 X10^3/uL; Basophil% 0.6 % (0-1); Eosinophil# 0.06 X10^3/uL; Eosinophils% 0.8 % (0-5); Hematocrit 43.3 % (37-47); Hemoglobin 14.3 g/dL (12.0-15.0); Lymphocyte # 0.93 X10^3/ul (0.83-4.51); Lymphocyte % 13.2 % (19-41); Mean Corpuscular Hgb 28.2 pg (27.0-32.0); Mean Corpuscular Volume 85.4 fL (81-99); Mean Platelet Vol. 9.8 fl (6.2-12.0); Monocyte# 0.69 X10^3/uL; Monocyte% 9.8 % (0-10); NRBC Flagged by Analyzer 0 % (0-5); Neutrophil # 5.29 X10^3/uL (2.7-7.7); Neutrophil % 74.9 % (47-70); Platelet Count 234 K/mm3 (150-450); RBC Distribution Width CV 13.2 % (11.6-14.6); RBC Distribution Width SD 41.1 fl (35.1-43.9); Red Blood Count 5.07 M/mm3 (4.2-5.4); White Blood Count 7.1 K/mm3 (4.4-11.0)
[2022-10-08 19:39] LABS: ALB/GLOB Ratio 1.3 RATIO (0.9-2.4); AST(SGOT) 34 U/L (15-37); Alanine Aminotransfer ALT/SGPT 19 U/L (13-56); Albumin, Serum 3.9 g/dL (3.2-5.0); Alkaline Phosphatase 91 U/L (45-117); Anion Gap 11 (5-15); BUN 12 mg/dL (7-18); BUN/Creat Ratio 15.4 RATIO (10-20); Calcium,Total 8.9 mg/dL (8.5-10.1); Chloride 100 mmol/L (98-107); Creatinine, Serum 0.78 mg/dL (0.55-1.02); EST Glomerular Filtration Rate 75 mL/min (>60); Est Glom Filt Rate - Afr Amer 90 mL/min (>60); Estimated Creatinine Clearance 27.44 ml/min; Globulin 3.1 g/dL (2.2-4.2); Glucose 99 mg/dL (74-106); Sodium Level 137 mmol/L (136-145); Troponin-I HS 10 pg/mL (3.0-54.0)
[2022-10-08 19:42] LABS: Lactic Acid 0.8 mmol/L (0.4-1.9)
--- NOTE | 2022-10-08 20:00 | RAD_ITS ---
RAD/Chest 1 View (Portable) IMPRESSION: No acute findings in the chest. Electronically Signed: Shaq Jolley MD at 20:12 EDT ,
[2022-10-08 22:03] VITALS: BP 139/76; PULSE 86; RESP 16; O2SAT 97
[2022-10-08] MEDS: 0.9% Normal Saline 1,000 ML 150 ML IV (22:10)
[2022-10-08 22:24] LABS: Mucous, Urine 0 SEEN /hpf (<or=2+)
[2022-10-08 22:32] LABS: Color, Urine Yellow (Yellow); Glucose, Dipstick Normal (Normal); Ketone-Dipstick 15 mg/dl (Negative); Leukocyte Esterase-Dipstick 25 /ul (Negative); Nitrite-Dipstick Positive (Negative); Occult Blood-Urine 10 /ul (Negative); Protein-Dipstick Negative (Negative); Specific Gravity, Urine 1.015 (1.002-1.030); Urine Bilirubin Dipstick Negative (Negative); Urine Clarity Sl. Cloudy (Clear); Urine Urobilinogen 1 mg/dl (Normal); Urine pH 6.5 (5.0 - 8.0)
[2022-10-08 22:40] LABS: Bacteria 1+ /hpf (None Seen); Red Blood Cells-Urine 0-5 SEEN /hpf (0-5); Squamous Epithelial Cells - UA 0-5 SEEN /hpf (5-10); White Blood Cells 0-5 SEEN /hpf (0-5)
[2022-10-08 23:16] VITALS: BP 125/73; PULSE 77; RESP 18; O2SAT 97
== END 2022-10-08 23:18 | disposition home or self-care (01) ==
PROVIDERS: Emergency Provider Emergency Medicine; PCP Family Medicine; Visit Provider Emergency Medicine
DX: R53.1 Weakness (principal); E78.5 Hyperlipidemia, unspecified; R42 Dizziness and giddiness; I10 Essential (primary) hypertension; Z79.82 Long term (current) use of aspirin; F32.A Depression, unspecified; Z79.899 Other long term (current) drug therapy; Z95.0 Presence of cardiac pacemaker
CPT/HCPCS: 70450; 71045; 80053; 81001; 83605; 84484; 85025; 87040; 87077; 87086; 87088; 87186; 93005; 96360; 99284; J7030; P9612; A4216

== ENCOUNTER → 2022-10-08 | Outpatient (CLI) | payer OTHER, SELFPAY ==
[2022-10-08 18:08] LABS: Absolute Neutrophil Count 5.4 X10^3/uL (2.0-7.7); Basophil# 0.05 X10^3/uL; Basophil% 0.7 % (0-1); Eosinophil# 0.09 X10^3/uL; Eosinophils% 1.2 % (0-5); Hematocrit 41.7 % (37-47); Lymphocyte % 14.8 % (19-41); Mean Corp Hgb Conc 33.6 g/dL (32-36); Mean Corpuscular Hgb 28.6 pg (27.0-32.0); Mean Corpuscular Volume 85.1 fL (81-99); Mean Platelet Vol. 9.9 fl (6.2-12.0); Monocyte# 0.76 X10^3/uL; Monocyte% 10.3 % (0-10); NRBC Flagged by Analyzer 0 % (0-5); Neutrophil # 5.38 X10^3/uL (2.7-7.7); Neutrophil % 72.6 % (47-70); Platelet Count 230 K/mm3 (150-450); RBC Distribution Width CV 13.2 % (11.6-14.6); RBC Distribution Width SD 41.2 fl (35.1-43.9); White Blood Count 7.4 K/mm3 (4.4-11.0)
[2022-10-08 19:00] LABS: ALB/GLOB Ratio 1.3 RATIO (0.9-2.4); AST(SGOT) 35 U/L (15-37); Alanine Aminotransfer ALT/SGPT 19 U/L (13-56); Albumin, Serum 3.6 g/dL (3.2-5.0); Alkaline Phosphatase 86 U/L (45-117); Anion Gap 10 (5-15); BUN 13 mg/dL (7-18); BUN/Creat Ratio 18.2 RATIO (10-20); Calcium,Total 9.1 mg/dL (8.5-10.1); Chloride 102 mmol/L (98-107); Creatinine, Serum 0.71 mg/dL (0.55-1.02); EST Glomerular Filtration Rate 83 mL/min (>60); Est Glom Filt Rate - Afr Amer 100 mL/min (>60); Globulin 2.8 g/dL (2.2-4.2); Glucose 93 mg/dL (74-106); Potassium 3.1 mmol/L (3.5-5.1); Protein, Total 6.4 g/dL (6.4-8.2); Sodium Level 136 mmol/L (136-145)
== END | disposition home or self-care (01) ==
PROVIDERS: PCP Family Medicine; Visit Provider Family Medicine
DX: R63.0 Anorexia (principal)
CPT/HCPCS: 36415; 80053; 85025; 87077; 87086; 87088; 87186

== ENCOUNTER 2022-10-14 14:55 | Observation (INO) | payer MEDICARE, SELFPAY ==
[2022-10-14 14:56] VITALS: BP 97/65; PULSE 75; RESP 18; TEMP 36.6; O2SAT 99
[2022-10-14 15:01] VITALS: BP 97/56; PULSE 75; RESP 18; TEMP 36.6; O2SAT 99
[2022-10-14 15:40] VITALS: BMI 17.9
--- NOTE | 2022-10-14 15:40 | RAD_ITS ---
STUDY: X-RAY CHEST REASON FOR EXAM: Female, 86 years old. lightheadedness TECHNIQUE: Single AP portable view of the chest. COMPARISON: 10/08/2022. FINDINGS: Stable elevated left hemidiaphragm. Mild atelectasis suggested in the lower left lung. Small left effusion not excluded. Right lung is clear. Normal size heart. Pacemaker is seen with leads terminating in the right atrium and right ventricle. Normal mediastinum and dick. Normal visualized pulmonary arteries. Normal visualized aortic arch and descending thoracic aorta. There are diffuse degenerative changes of the visualized thoracic spine. Degenerative changes of the right shoulder. Left total shoulder arthroplasty. There is no demonstrated abnormality of the visualized soft tissue structures of the upper abdomen. RAD/Chest 1 View (Portable) IMPRESSION: Mild atelectasis in the lower left lung. Electronically Signed: Robin Fortune MD at 16:58 EDT ,
[2022-10-14 15:46] LABS: Absolute Lymphocyte Count 0.73 X10^3/uL (0.83-4.51); Absolute Neutrophil Count 5.1 X10^3/uL (2.0-7.7); Basophil# 0.05 X10^3/uL; Basophil% 0.8 % (0-1); Eosinophil# 0.01 X10^3/uL; Eosinophils% 0.2 % (0-5); Hemoglobin 13.8 g/dL (12.0-15.0); Lymphocyte # 0.73 X10^3/ul (0.83-4.51); Lymphocyte % 11.2 % (19-41); Mean Corp Hgb Conc 32.9 g/dL (32-36); Mean Corpuscular Hgb 28.3 pg (27.0-32.0); Mean Corpuscular Volume 86.1 fL (81-99); Mean Platelet Vol. 9.4 fl (6.2-12.0); Monocyte% 9.2 % (0-10); NRBC Flagged by Analyzer 0 % (0-5); Neutrophil # 5.11 X10^3/uL (2.7-7.7); Neutrophil % 78.3 % (47-70); Platelet Count 218 K/mm3 (150-450); RBC Distribution Width CV 13.2 % (11.6-14.6); RBC Distribution Width SD 41.1 fl (35.1-43.9); Red Blood Count 4.88 M/mm3 (4.2-5.4); White Blood Count 6.5 K/mm3 (4.4-11.0)
--- NOTE | 2022-10-14 15:48 | ED.VIS.FEGU ---
HPI HPI - Female History of Present Illness Chief Complaint: Complaint Narrative Narrative: 86-year-old female presenting with with UTI. She was prescribed Macrobid is not eating and drinking well. She is urinating. She not had any fevers. She denies chest pain or shortness of breath. Patient self has not no real complaints. The patient's family states that she has dementia and she is a poor informant. They are concerned because it was noted that she got up off the couch to walk to the restroom and was incontinent of urine on the floor. The patient herself does not recall this. She states that she has no abdominal pain. [facility] Medical History Anemia Bronchiectasis Chest pain, unspecified Chronic cough Complete heart block DDD (degenerative disc disease) Depression Essential (primary) hypertension HLD (hyperlipidemia) Near syncope Osteoporosis Paroxysmal atrial tachycardia Shortness of breath Visual loss Home Medications acetaminophen 500 mg tablet 1,000 mg PO Q8H PRN PRN Pain Score 4-10/10 #100 tabs 11/23/19 [Rx Last Taken Unknown] montelukast 10 mg tablet 10 mg PO DAILY 01/04/20 [History Last Taken Unknown] aspirin 81 mg chewable tablet 81 mg PO DAILY HEALTH MAINTENANCE 04/25/21 [History Last Taken Unknown] citalopram 40 mg tablet 20 mg PO QHS 04/25/21 [History Last Taken Unknown] amlodipine 10 mg tablet 10 mg PO DAILY #30 tabs 01/31/22 [Rx Last Taken Unknown] donepezil 10 mg tablet 10 mg PO QHS 01/31/22 [History Last Taken Unknown] lisinopril 10 mg tablet 10 mg PO DAILY 01/31/22 [History Last Taken Unknown] atorvastatin 40 mg tablet 40 mg PO QDAY #90 tabs 08/01/22 [Rx Last Taken Unknown] nitrofurantoin monohydrate/macrocrystals 100 mg capsule 100 mg PO Q12 #10 CAPSULES 10/10/22 [Rx Last Taken Unknown] Allergy/AdvReac Type Severity Reaction Status Date / Time codeine Allergy Unknown Verified 10/14/22 14:56 Penicillins Allergy Unknown Verified 10/14/22 14:56 Sulfa (Sulfonamide Allergy Unknown Verified 10/14/22 14:56 Antibiotics) Family History Father , at age 82 CVA (cerebral vascular accident) CAD (coronary artery disease) Mother CAD (coronary artery disease) stomach aneurysm Brother Myocardial infarction CAD (coronary artery disease) CABG Sister CAD (coronary artery disease) Surgical History H/O shoulder surgery History of bunionectomy History of left heart catheterization History of open reduction and internal fixation (ORIF) procedure (11/2019) 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) History of right and left heart catheterization Social History Smoking Status: Never smoker alcohol intake: never substance use type: does not use caffeine: Yes Type: carbonated beverages and coffee what type of physical activity do you participate in: none seatbelt use: always do you feel safe at home: Yes ROS ROS ED Constitutional Constitutional ED: Denies chills or fever(s) Eyes Eyes: Denies change in vision or diplopia ENT ENT ED: Denies rhinorrhea or sore throat Cardiovascular Cardiovascular: Denies chest pain or palpitations Respiratory/Chest Respiratory/Chest: Denies cough or dyspnea Gastrointestinal Gastrointestinal: Reports nausea; Denies abdominal pain or vomiting Genitourinary Genitourinary ED: Reports hematuria and other Details: Urinary incontinence ; Denies dysuria Musculoskeletal Musculoskeletal: Denies arthralgias or myalgias Integumentary Denies abscess or Abrasions Neurologic Neurologic: Denies headache(s) or paresthesias Psychiatric Psychiatric: Denies anxiety or depression EXAM Physical Exam Const Vital Signs: 10/14/22 14:56 10/14/22 15:01 10/14/22 14:56 Temperature 97.8 F 97.8 F Temperature Source Temporal Temporal Pulse Rate 75 75 Pulse Rate [Lying] Pulse Rate [Sitting (for 1 minute prior to obtaining)] Pulse Rate [Standing (for 1 minute prior to obtaining)] Respiratory Rate 18 18 Respiratory Pattern Normal Blood Pressure 97/65 97/56 L Blood Pressure [Lying] Blood Pressure [Sitting (for 1 minute prior to obtaining)] Blood Pressure [Standing (for 1 minute prior to obtaining)] Blood Pressure Mean 75 69 Blood Pressure Mean [Lying] Blood Pressure Mean [Sitting (for 1 minute prior to obtaining)] Blood Pressure Mean [Standing (for 1 minute prior to obtaining)] Pulse Ox 99 99 Oxygen Delivery Method Room Air Room Air 10/14/22 15:58 10/14/22 17:00 Temperature Temperature Source Pulse Rate 79 Pulse Rate [Lying] 83 Pulse Rate [Sitting (for 1 minute prior to obtaining)] 77 Pulse Rate [Standing (for 1 minute prior to obtaining)] 76 Respiratory Rate 16 Respiratory Pattern Blood Pressure 127/70 H Blood Pressure [Lying] 118/68 Blood Pressure [Sitting (for 1 minute prior to obtaining)] 107/67 Blood Pressure [Standing (for 1 minute prior to obtaining)] 89/67 L Blood Pressure Mean 89 Blood Pressure Mean [Lying] 84 Blood Pressure Mean [Sitting (for 1 minute prior to obtaining)] 80 Blood Pressure Mean [Standing (for 1 minute prior to obtaining)] 74 Pulse Ox 100 Oxygen Delivery Method Room Air Positive well nourished General Appearance ED: NAD HEENT Reports moist mucous membranes Eyes PERRL and EOMs intact bilaterally General Eye ED: Negative for pale conjunctiva Resp normal respiratory effort and clear to auscultation bilaterally Auscultation: Negative for rales, rhonchi or wheezes Cardio regular rate and regular rhythm GI normal to inspection, nondistended, normoactive bowel sounds Extremity normal to inspection Neuro oriented x3 and CN's II-XII intact bilaterally Sensorium / Orientation: alert Psych mental status grossly normal Skin no rashes or lesions noted and no wounds MDM MDM MDM Narrative Medical decision making narrative: 70Patient presenting with generalized weakness, light UTI diagnosis and has been on Macrobid. Per her family she differential includes. Differential includes dehydration, electrolyte abnormalities, UTI, dysrhythmia, ACS, pneumonia. CBC obtained to assess hemoglobin, platelets, white blood cell count. BMP which was related to her electrolytes. High-sensitivity troponin and EKG to assess for ischemia or dysrhythmia.. Chest x-ray to rule out pneumonia. Urinalysis to rule out UTI. Orthostatics will be obtained. Patient was given Zofran 4 mg IV. EKG showed a paced rhythm at 77 bpm without sign of ischemic change. Chest x-ray revealed no acute cardiopulmonary process on my interpretation. Radiologist interprets this and agrees. CBC unremarkable. BMP shows a low potassium at 2.9 however her renal function and electrolytes are otherwise normal. Urinalysis consistent with UTI. Patient has been on 2 days of Macrobid and is still symptomatic. She is given a dose of Rocephin. Orthostatic vital signs were positive. She dropped from 118/68 lying to 89/67 standing. She was given normal saline 1 L. She was given Zofran for nausea. Discussed with family and they do not feel comfortable taking her home. I discussed with the hospitalist who was amenable to admitting her. Impression: 1. Weakness 2. Orthostatic hypotension 3. UTI Lab Data Labs: Laboratory Results - last 24 hr 10/14/22 10/14/22 10/14/22 15:36 15:36 16:50 WBC 6.5 RBC 4.88 Hgb 13.8 Hct 42.0 MCV 86.1 MCH 28.3 MCHC 32.9 RDW Std Deviation 41.1 RDW Coeff of Evelyn 13.2 Plt Count 218 MPV 9.4 Immature Gran % (Auto) 0.300 Neut % (Auto) 78.3 H Lymph % (Auto) 11.2 L [place] % (Auto) 9.2 Eos % (Auto) 0.2 Baso % (Auto) 0.8 Absolute Neuts (auto) 5.1 Absolute Lymphs (auto) 0.73 L Nucleated RBC % 0 Sodium 138 Potassium 2.9 L Chloride 101 Carbon Dioxide 22.0 Anion Gap 15 BUN 11 Creatinine 0.63 Estim Creat Clear Calc 29.42 Est GFR (MDRD) Af Amer 115 Est GFR (MDRD) Non-Af 95 BUN/Creatinine Ratio 17.4 Glucose 72 L Calcium 9.1 Urine Color Yellow Urine Clarity Clear Urine pH 6.5 Ur Specific [place] 1.020 Urine Protein 30 H Urine Glucose (UA) Normal Urine Ketones 150 A* Urine Occult Blood 10 H Urine Nitrite Positive H Urine Bilirubin Negative Urine Urobilinogen 1 H Ur Leukocyte Esterase 25 H Urine RBC 0-5 SEEN Urine WBC 0-5 SEEN Ur Squamous Epith Cells 0-5 SEEN Urine Bacteria 0 SEEN Urine Mucus 0 SEEN Radiography Diagnostic Testing: Clinical Impression(s) from Imaging Studies Chest X-Ray 10/14/22 15:40 IMPRESSION: Mild atelectasis in the lower left lung. Electronically Signed: Robin Fortune MD at 16:58 EDT , Discharge Plan Triage Chief Complaint: Complaint Other Complaint: Weakness ED Provider: Patric Andres Dx/Rx/DC Orders Prescriptions: No Action montelukast 10 mg tablet 10 mg PO DAILY citalopram 40 mg tablet 20 mg PO QHS lisinopril 10 mg tablet 10 mg PO DAILY donepezil 10 mg tablet 10 mg PO QHS amlodipine 10 mg tablet 10 mg PO DAILY Qty: 30 0RF atorvastatin 40 mg tablet 40 mg PO QDAY Qty: 90 3RF aspirin 81 mg tablet,chewable 81 mg PO DAILY acetaminophen 500 MG tablet 1,000 mg PO Q8H PRN PRN (Reason: Pain Score 4-10/10) Qty: 100 0RF nitrofurantoin monohyd/m-cryst [nitrofurantoin monohyd/m-cryst] 100 mg capsule 100 mg PO Q12 Qty: 10 0RF Primary Care Provider: Debi Escobedo Referrals: Debi Escobedo, DO [Primary Care Provider] -
[2022-10-14 15:58] VITALS: BP 107/67; BP 118/68; BP 89/67; PULSE 76; PULSE 77; PULSE 83
[2022-10-14] MEDS: Ondansetron 4 MG/2 ML Vial IV (16:18)
[2022-10-14] MEDS: 0.9% Normal Saline 1,000 ML 999 ML IV (16:18)
[2022-10-14 16:28] LABS: Anion Gap 15 (5-15); BUN 11 mg/dL (7-18); BUN/Creat Ratio 17.4 RATIO (10-20); Calcium,Total 9.1 mg/dL (8.5-10.1); Chloride 101 mmol/L (98-107); Creatinine, Serum 0.63 mg/dL (0.55-1.02); EST Glomerular Filtration Rate 95 mL/min (>60); Est Glom Filt Rate - Afr Amer 115 mL/min (>60); Estimated Creatinine Clearance 29.42 ml/min; Glucose 72 mg/dL (74-106); Potassium 2.9 mmol/L (3.5-5.1); Sodium Level 138 mmol/L (136-145)
[2022-10-14 17:00] VITALS: BP 127/70; PULSE 79; RESP 16; O2SAT 100
[2022-10-14 17:06] LABS: Bacteria 0 SEEN /hpf (None Seen); Mucous, Urine 0 SEEN /hpf (<or=2+)
[2022-10-14 17:09] LABS: Color, Urine Yellow (Yellow); Glucose, Dipstick Normal (Normal); Leukocyte Esterase-Dipstick 25 /ul (Negative); Nitrite-Dipstick Positive (Negative); Occult Blood-Urine 10 /ul (Negative); Protein-Dipstick 30 mg/dl (Negative); Urine Bilirubin Dipstick Negative (Negative); Urine Clarity Clear (Clear); Urine Urobilinogen 1 mg/dl (Normal); Urine pH 6.5 (5.0 - 8.0)
[2022-10-14] MEDS: Potassium Chloride Oral Tablet 20 MEQ 40 MEQ PO (17:11)
[2022-10-14 17:12] LABS: Ketone-Dipstick 150 mg/dl (Negative)
[2022-10-14 17:16] LABS: White Blood Cells 0-5 SEEN /hpf (0-5)
[2022-10-14 17:17] LABS: Red Blood Cells-Urine 0-5 SEEN /hpf (0-5); Squamous Epithelial Cells - UA 0-5 SEEN /hpf (5-10)
[2022-10-14] MEDS: Ceftriaxone 1 GM/50 ML BAG IV (18:05)
[2022-10-14 19:12] VITALS: BP 115/65; PULSE 76; RESP 16; TEMP 36.6; O2SAT 95
--- NOTE | 2022-10-14 19:30 | PCM.HP.STD ---
[facility] - General General Date of Service: 10/14/22 Chief Complaint: weakness [facility] Narrative SRINIVAS KWON, is a 86 F who presents with weakness. Patient was diagnosed with urinary tract infection back on the and received Macrobid. Since then, patient has not been eating and drinking very little. She just gotten weak and presented to the emergency room. Patient is also complaining of urinary frequency. Patient had potassium of 2.9 and did receive 40 mill equivalents in the emergency room. Patient also had ketones in her urine. Patient received ceftriaxone in the emergency room for concern for urinary tract infection. Patient is very confrontational primarily towards her family but also me and dismissive of our complaints saying that the doctors a bunch of [id number].. They did check orthostatic vital signs in the emergency room and patient dropped from 118/68 laying to 89/67 standing. Family is uncomfortable about taking the patient home. [facility] Medical History (Updated 10/14/22 @ 19:[address] Teja Sauceda, ) Anemia Bronchiectasis Chest pain, unspecified Chronic cough Complete heart block DDD (degenerative disc disease) Dementia Depression Essential (primary) hypertension HLD (hyperlipidemia) Near syncope Osteoporosis Paroxysmal atrial tachycardia Shortness of breath Visual loss Home Medications acetaminophen 500 mg tablet 1,000 mg PO Q8H PRN PRN Pain Score 4-10/10 #100 tabs 11/23/19 [Rx Last Taken Unknown] montelukast 10 mg tablet 10 mg PO DAILY 01/04/20 [History Last Taken Unknown] aspirin 81 mg chewable tablet 81 mg PO DAILY HEALTH MAINTENANCE 04/25/21 [History Last Taken Unknown] citalopram 40 mg tablet 20 mg PO QHS 04/25/21 [History Last Taken Unknown] amlodipine 10 mg tablet 10 mg PO DAILY #30 tabs 01/31/22 [Rx Last Taken Unknown] donepezil 10 mg tablet 10 mg PO QHS 01/31/22 [History Last Taken Unknown] lisinopril 10 mg tablet 10 mg PO DAILY 01/31/22 [History Last Taken Unknown] atorvastatin 40 mg tablet 40 mg PO QDAY #90 tabs 08/01/22 [Rx Last Taken Unknown] nitrofurantoin monohydrate/macrocrystals 100 mg capsule 100 mg PO Q12 #10 CAPSULES 10/10/22 [Rx Last Taken Unknown] Allergy/AdvReac Type Severity Reaction Status Date / Time codeine Allergy Unknown Verified 10/14/22 14:56 Penicillins Allergy Unknown Verified 10/14/22 14:56 Sulfa (Sulfonamide Allergy Unknown Verified 10/14/22 14:56 Antibiotics) Family History Father , at age 82 CVA (cerebral vascular accident) CAD (coronary artery disease) Mother CAD (coronary artery disease) stomach aneurysm Brother Myocardial infarction CAD (coronary artery disease) CABG Sister CAD (coronary artery disease) Surgical History H/O shoulder surgery History of bunionectomy History of left heart catheterization History of open reduction and internal fixation (ORIF) procedure (11/2019) 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 Vital Signs Vital Signs Vital Signs: 10/14/22 14:56 10/14/22 15:01 10/14/22 14:56 Temperature 36.6 C 36.6 C Temperature Source Temporal Temporal Pulse Rate 75 75 Pulse Rate [Lying] Pulse Rate [Sitting (for 1 minute prior to obtaining)] Pulse Rate [Standing (for 1 minute prior to obtaining)] Respiratory Rate 18 18 Respiratory Pattern Normal Blood Pressure 97/65 97/56 L Blood Pressure [Lying] Blood Pressure [Sitting (for 1 minute prior to obtaining)] Blood Pressure [Standing (for 1 minute prior to obtaining)] Blood Pressure Mean 75 69 Blood Pressure Mean [Lying] Blood Pressure Mean [Sitting (for 1 minute prior to obtaining)] Blood Pressure Mean [Standing (for 1 minute prior to obtaining)] Pulse Ox 99 99 Oxygen Delivery Method Room Air Room Air 10/14/22 15:58 10/14/22 17:00 Temperature Temperature Source Pulse Rate 79 Pulse Rate [Lying] 83 Pulse Rate [Sitting (for 1 minute prior to obtaining)] 77 Pulse Rate [Standing (for 1 minute prior to obtaining)] 76 Respiratory Rate 16 Respiratory Pattern Blood Pressure 127/70 H Blood Pressure [Lying] 118/68 Blood Pressure [Sitting (for 1 minute prior to obtaining)] 107/67 Blood Pressure [Standing (for 1 minute prior to obtaining)] 89/67 L Blood Pressure Mean 89 Blood Pressure Mean [Lying] 84 Blood Pressure Mean [Sitting (for 1 minute prior to obtaining)] 80 Blood Pressure Mean [Standing (for 1 minute prior to obtaining)] 74 Pulse Ox 100 Oxygen Delivery Method Room Air Weight Weight: 44.5 kg Body Mass Index (BMI) 17.9 Physical Exam Const alert and no apparent distress Constitutional Narrative: Cantankerous and verbally confrontational. HEENT normocephalic, head/scalp atraumatic and moist oral mucous membranes Neck no lymphadenopathy Neck Narrative: No thyromegaly Resp normal respiratory effort, no retractions, no use of accessory muscles and clear to auscultation bilaterally Cardio regular rate, regular rhythm, S1 normal heart sound and S2 normal heart sound GI normal to inspection, nondistended, normoactive bowel sounds, soft to palpation, non-tender and non-distended Extremity normal to inspection and no clubbing, cyanosis or edema Results Lab / Micro Data Result Diagrams: 10/14/22 15:36 10/14/22 15:36 Labs: Laboratory Results - last 24 hr 10/14/22 15:36: WBC 6.5, RBC 4.88, Hgb 13.8, Hct 42.0, MCV 86.1, MCH 28.3, MCHC 32.9, RDW Std Deviation 41.1, RDW Coeff of Evelyn 13.2, Plt Count 218, MPV 9.4, Immature Gran % (Auto) 0.300, Neut % (Auto) 78.3 H, Lymph % (Auto) 11.2 L, [place] % (Auto) 9.2, Eos % (Auto) 0.2, Baso % (Auto) 0.8, Absolute Neuts (auto) 5.1, Absolute Lymphs (auto) 0.73 L, Nucleated RBC % 0 10/14/22 15:36: Sodium 138, Potassium 2.9 L, Chloride 101, Carbon Dioxide 22.0, Anion Gap 15, BUN 11, Creatinine 0.63, Estim Creat Clear Calc 29.42, Est GFR (MDRD) Af Amer 115, Est GFR (MDRD) Non-Af 95, BUN/Creatinine Ratio 17.4, Glucose 72 L, Calcium 9.1 10/14/22 16:50: Urine Color Yellow, Urine Clarity Clear, Urine pH 6.5, Ur Specific [place] 1.020, Urine Protein 30 H, Urine Glucose (UA) Normal, Urine Ketones 150 A*, Urine Occult Blood 10 H, Urine Nitrite Positive H, Urine Bilirubin Negative, Urine Urobilinogen 1 H, Ur Leukocyte Esterase 25 H, Urine RBC 0-5 SEEN, Urine WBC 0-5 SEEN, Ur Squamous Epith Cells 0-5 SEEN, Urine Bacteria 0 SEEN, Urine Mucus 0 SEEN Micro: Microbiology 10/14/22 16:49 Nasal Secretion SARS-CoV-2 & FLU Antigen (Rapid) - Final Radiology Impression Chest X-Ray 10/14/22 15:40 IMPRESSION: Mild atelectasis in the lower left lung. Electronically Signed: Robin Fortune MD at 16:58 EDT , Assessment & Plan Assessment/Plan (1) Orthostatic hypotension: PLAN: Due to volume depletion but also likely related with her antihypertensives. Continue to give IV fluids. Patient did receive a liter in the emergency room. We will administer another 2 L. Hold amlodipine and lisinopril Recheck orthostats in the morning (2) Hypokalemia: PLAN: Patient received 40 in the emergency room. Recheck and check magnesium level. Replace magnesium if low. (3) Ketosis: PLAN: Likely due to volume depletion and starvation ketosis IV fluids and regular diet (4) Abnormal urinalysis: PLAN: Patient had an abnormal urinalysis today but also on the when she was treated with nitrofurantoin for urinary tract infection. The urine culture did show pansensitive E. coli. Patient was to be prescribed 10-day course of antibiotics. Patient did receive ceftriaxone in the emergency room before I had a chance to see the patient. I do not feel the patient has urinary tract infection and I will question whether or not the patient actually did have a urinary tract infection last time. Compounding this is was her urine culture was positive. I would not treat her for urinary tract infection any further at this point in time. PLAN: Plan Complicating chronic conditions Dementia: Family asked about what would happen if this happens again. Patient they were advised that this may continue to progress and she may have other episodes similar to this. I did address at how aggressive they would want to be in her care if she is not eating if they want to do feeding tube. They said they would not want to do the feeding tube which I agreed with. Continue with donezepil Hypertension: Hold amlodipine and lisinopril given the orthostatic hypotension VTE prophylaxis not indicated given current observation status Family made aware that the patient is currently going to be brought under observation status. They are made aware that if certain things change if her condition deteriorates and that could be changed to admission but at this point time she will be made observation status. They are made aware that that could potentially lead to a higher co-pay upon discharge. Charges/Coding Visit Charges Inpatient E&M: 15847 Init Hosp L2
[2022-10-14 20:23] VITALS: BMI 16.2
[2022-10-14 20:29] VITALS: BP 126/71; PULSE 80; RESP 16; TEMP 36.7; O2SAT 94
[2022-10-14] MEDS: 0.9% Saline Lock 10 ML Syringe IV (21:02)
[2022-10-14] MEDS: 0.9% Normal Saline 1,000 ML 150 ML IV (21:02)
[2022-10-14] MEDS: Donepezil HCl 10 MG Tablet PO (21:04)
[2022-10-14] MEDS: Citalopram 20 MG Tablet PO (21:04)
[2022-10-14] MEDS: Atorvastatin Calcium 40 MG Tablet PO (21:04)
[2022-10-15 03:00] VITALS: BP 135/84; PULSE 91; RESP 16; TEMP 37.2; O2SAT 95
[2022-10-15] MEDS: 0.9% Normal Saline 1,000 ML 150 ML IV (03:43)
[2022-10-15 05:45] LABS: Absolute Lymphocyte Count 0.77 X10^3/uL (0.83-4.51); Absolute Neutrophil Count 4.5 X10^3/uL (2.0-7.7); Basophil# 0.04 X10^3/uL; Basophil% 0.7 % (0-1); Eosinophil# 0.06 X10^3/uL; Hematocrit 37.2 % (37-47); Hemoglobin 12.2 g/dL (12.0-15.0); Lymphocyte # 0.77 X10^3/ul (0.83-4.51); Lymphocyte % 13.1 % (19-41); Mean Corp Hgb Conc 32.8 g/dL (32-36); Mean Corpuscular Hgb 28.3 pg (27.0-32.0); Mean Corpuscular Volume 86.3 fL (81-99); Mean Platelet Vol. 9.3 fl (6.2-12.0); Monocyte% 8.5 % (0-10); NRBC Flagged by Analyzer 0 % (0-5); Neutrophil % 76.2 % (47-70); Platelet Count 203 K/mm3 (150-450); RBC Distribution Width CV 13.3 % (11.6-14.6); RBC Distribution Width SD 41.9 fl (35.1-43.9); Red Blood Count 4.31 M/mm3 (4.2-5.4); White Blood Count 5.9 K/mm3 (4.4-11.0)
[2022-10-15 06:09] LABS: Anion Gap 12 (5-15); BUN 9 mg/dL (7-18); BUN/Creat Ratio 21.1 RATIO (10-20); Calcium,Total 7.9 mg/dL (8.5-10.1); Chloride 109 mmol/L (98-107); Creatinine, Serum 0.43 mg/dL (0.55-1.02); EST Glomerular Filtration Rate 150 mL/min (>60); Est Glom Filt Rate - Afr Amer 182 mL/min (>60); Glucose 56 mg/dL (74-106); Magnesium 2.1 mg/dL (1.6-2.6); Potassium 3.4 mmol/L (3.5-5.1); Sodium Level 141 mmol/L (136-145)
[2022-10-15 07:51] VITALS: BP 121/75; PULSE 94; RESP 16; TEMP 37.2; O2SAT 95
[2022-10-15] MEDS: Ensure Plus High Protein 120 ML LIQUID PO ×2 (07:56→12:31)
[2022-10-15] MEDS: Aspirin 81 MG TAB.CHEW PO (07:56)
--- NOTE | 2022-10-15 07:58 | PN.HOSP_ITS ---
Reason for Visit Reason for Visit: Diagnoses Hypokalemia (10/14/22) Other specified metabolic disorders (10/14/22) Orthostatic hypotension (10/14/22) Unspecified abnormal findings in urine (10/14/22) Subjective Subjective Patient is an 86-year-old lady with history of dementia with recent treatment for UTI admitted with progressive generalized weakness and lightheadedness Objective Data Objective Data Vital Signs: Vital Signs Temp Pulse Resp BP Pulse Ox O2 Del Method 99 F 94 16 121/75 H 95 Room Air 10/15/22 07:51 10/15/22 07:51 10/15/22 07:51 10/15/22 07:51 10/15/22 07:51 10/15/22 07:51 Oxygen Delivery Method Room Air Weight: 41.6 kg Body Mass Index (BMI) 16.2 Intake & Output: Intake and Output for Last 24 Hours 10/13/22 10/14/22 10/15/22 23:59 23:59 23:59 Intake Total 1050 / 1050 1000 / 1000 Output Total 300 / 300 Balance 1050 / 1050 700 / 700 Lab / Micro Data Result Diagrams: 10/15/22 05:32 10/15/22 05:32 Labs: Laboratory Results - last 24 hr 10/14/22 15:36: WBC 6.5, RBC 4.88, Hgb 13.8, Hct 42.0, MCV 86.1, MCH 28.3, MCHC 32.9, RDW Std Deviation 41.1, RDW Coeff of Evelyn 13.2, Plt Count 218, MPV 9.4, Immature Gran % (Auto) 0.300, Neut % (Auto) 78.3 H, Lymph % (Auto) 11.2 L, [place] % (Auto) 9.2, Eos % (Auto) 0.2, Baso % (Auto) 0.8, Absolute Neuts (auto) 5.1, Absolute Lymphs (auto) 0.73 L, Nucleated RBC % 0 10/14/22 15:36: Sodium 138, Potassium 2.9 L, Chloride 101, Carbon Dioxide 22.0, Anion Gap 15, BUN 11, Creatinine 0.63, Estim Creat Clear Calc 29.42, Est GFR (MDRD) Af Amer 115, Est GFR (MDRD) Non-Af 95, BUN/Creatinine Ratio 17.4, Glucose 72 L, Calcium 9.1 10/14/22 16:50: Urine Color Yellow, Urine Clarity Clear, Urine pH 6.5, Ur Specific [place] 1.020, Urine Protein 30 H, Urine Glucose (UA) Normal, Urine Ketones 150 A*, Urine Occult Blood 10 H, Urine Nitrite Positive H, Urine Bilirubin Negative, Urine Urobilinogen 1 H, Ur Leukocyte Esterase 25 H, Urine RBC 0-5 SEEN, Urine WBC 0-5 SEEN, Ur Squamous Epith Cells 0-5 SEEN, Urine Bacteria 0 SEEN, Urine Mucus 0 SEEN 10/15/22 05:32: WBC 5.9, RBC 4.31, Hgb 12.2, Hct 37.2, MCV 86.3, MCH 28.3, MCHC 32.8, RDW Std Deviation 41.9, RDW Coeff of Evelyn 13.3, Plt Count 203, MPV 9.3, Immature Gran % (Auto) 0.500, Neut % (Auto) 76.2 H, Lymph % (Auto) 13.1 L, [place] % (Auto) 8.5, Eos % (Auto) 1.0, Baso % (Auto) 0.7, Absolute Neuts (auto) 4.5, Absolute Lymphs (auto) 0.77 L, Nucleated RBC % 0 10/15/22 05:32: Sodium 141, Potassium 3.4 L, Chloride 109 H, Carbon Dioxide 20.0 L, Anion Gap 12, BUN 9, Creatinine 0.43 L, Estim Creat Clear Calc 27.50, Est GFR (MDRD) Af Amer 182, Est GFR (MDRD) Non-Af 150, BUN/Creatinine Ratio 21.1 H, Gluc ose 56 L, Calcium 7.9 L, Magnesium 2.1 Micro: Microbiology 10/14/22 16:49 Nasal Secretion SARS-CoV-2 & FLU Antigen (Rapid) - Final Radiography Diagnostic Testing: Radiology Impression Chest X-Ray 10/14/22 15:40 IMPRESSION: Mild atelectasis in the lower left lung. Electronically Signed: Robin Fortune MD at 16:58 EDT , Physical Exam Narrative GENERAL: cooperative HEENT: Atraumatic; normocephalic EYES; Anicteric, Normal Conjunctiva NECK; supple, normal thyroid, RESPIRATORY: Diminished to auscultation CARDIOVASCULAR: Regular S1 S2, GI: soft, normoactive bowel sounds, : No Renal angle tenderness; EXTREMITIES: No edema, no clubbing, MUSCULOSKELETAL: no muscle wasting NEURO: Awake; no lateralizing signs. SKIN: No Rash PSYCH; Flat affect Assessment & Plan Assessment/Plan (1) Abnormal urinalysis: (2) Hypokalemia: (3) Weakness: PLAN: Plan Patient is an 86-year-old lady with history of dementia with recent treatment for UTI admitted with progressive generalized weakness and lightheadedness 1. Dehydration ? Patient was found to be orthostatic on admission. Managed with IV fluid resuscitation with acute shift orthostatics ordered 2. Essential hypertension ? Patient antihypertensives held in view of above reasons 3. Hypokalemia ? Corrected per protocol 4. Dementia ? 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 Dyslipidemia -Patient is on statin therapy, continued at home dose 7. Depression ? Patient is on citalopram did continue 8. DVT prophylaxis ? SC Lovenox Time spent in the patient's overall evaluation,decision-making process, review of diagnostic data, adjustment of management, discussion with other providers, nursing nursing and ancillary staff involved in patient's care documentation, 35 Minutes Charges/Coding Visit Charges Inpatient E&M: 84771 Subs Hosp L2
[2022-10-15] MEDS: Potassium Chloride Oral Tablet 20 MEQ 40 MEQ PO (09:40)
[2022-10-15] MEDS: Montelukast 10 MG Tablet PO (09:41)
--- NOTE | 2022-10-15 09:46 | CASEMGMT ---
Addendum entered by Maddie Berumen 10/15/22 11:48: JOYCE HODGE spoke with therapy. JOYCE HODGE into pt room, pt and family decline the need for a FWW as recommended or therapy. Spoke with pt dtr as well who wished for palliative order to be cancelled as they will follow up with PCP on Friday. Email to palliative to cancel. No further needs, pt ready for dc. Addendum entered by Maddie Berumen 10/15/22 11:31: Received order for palliative care. Emailed referral at this time and requested liaison meet this afternoon if possible. Original Note: JOYCE HODGE into pt room, pt sitting up in bed, at bedside and dtr came in mid way through the conversation. JOYCE HODGE asking pt how she ambulates at home, she replied on my own two feet. Pt denies use of AD. Pt and deny any need for homegoing services at home. Pt states that at this point, he doesn't feel any services are needed in the home but eventually. Pt very anxious to have RN CM leave room. Pt dtr came outside of room and requested palliative care visit today. Pt screened with [facility] Palliative care screening tool and met criteria. Will discuss with hospitalist for order.
--- NOTE | 2022-10-15 10:03 | PCM.DC.SUM ---
Providers Date of Admission: 10/14/22 Date of Discharge: 10/15/22 Primary Care Physician: Debi Escobedo DO Reason For Visit: ORTHOSTATIC HYPOTENSION Diagnosis Discharge Diagnosis (1) Abnormal urinalysis: Status: Acute Code(s): R82.90 - Unspecified abnormal findings in urine (2) Hypokalemia: Status: Acute Code(s): E87.6 - Hypokalemia (3) Weakness: Status: Acute Code(s): R53.1 - Weakness Plan Patient is an 86-year-old lady with history of dementia with recent treatment for UTI admitted with progressive generalized weakness and lightheadedness 1. Dehydration ? Patient was found to be orthostatic on admission. Managed with IV fluid resuscitation with acute shift orthostatics ordered ? Patient orthostasis did resolve. Patient was discharged home with discontinuation of her antihypertensives. 2. Essential hypertension ? Patient antihypertensives held in view of above reasons 3. Hypokalemia ? Corrected per protocol 4. Dementia ? 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 Dyslipidemia -Patient is on statin therapy, continued at home dose 7. Depression ? Patient is on citalopram did continue 8. DVT prophylaxis ? SC Lovenox Time spent in the patient's overall evaluation,decision-making process, review of diagnostic data, adjustment of management, discussion with other providers, nursing nursing and ancillary staff involved in patient's care documentation, 35 Minutes Medications at Discharge Home Medications acetaminophen 500 mg tablet 1,000 mg PO Q8H PRN PRN Pain Score 4-10/10 #100 tabs 11/23/19 montelukast 10 mg tablet 10 mg PO DAILY Check with primary doctor 01/04/20 aspirin 81 mg chewable tablet 81 mg PO DAILY HEALTH MAINTENANCE 04/25/21 citalopram 40 mg tablet 20 mg PO QHS mental health 04/25/21 donepezil 10 mg tablet 10 mg PO QHS memory 01/31/22 atorvastatin 40 mg tablet 40 mg PO QDAY #90 tabs 08/01/22 nitrofurantoin monohydrate/macrocrystals 100 mg capsule 100 mg PO Q12 #10 CAPSULES 10/10/22 potassium chloride 20 mEq tablet,extended release(part/cryst) (Klor-Con M) 20 meq PO BIDCM #20 tabs 10/15/22 Hospital Course Summary of Care Provided Minutes Spent on Discharge: 35 Physical Exam Narrative GENERAL: cooperative HEENT: Atraumatic; normocephalic EYES; Anicteric, Normal Conjunctiva NECK; supple, normal thyroid, RESPIRATORY: Diminished to auscultation CARDIOVASCULAR: Regular S1 S2, GI: soft, normoactive bowel sounds, : No Renal angle tenderness; EXTREMITIES: No edema, no clubbing, MUSCULOSKELETAL: no muscle wasting NEURO: Awake; no lateralizing signs. SKIN: No Rash PSYCH; Flat affect Weight / BMI Weight Weight: 41.6 kg Body Mass Index (BMI) 16.2 ABG / Lab / Microbiology Data Result Diagrams: 10/15/22 05:32 10/15/22 05:32 Laboratory: Laboratory Results - last 24 hr 10/14/22 15:36: WBC 6.5, RBC 4.88, Hgb 13.8, Hct 42.0, MCV 86.1, MCH 28.3, MCHC 32.9, RDW Std Deviation 41.1, RDW Coeff of Evelyn 13.2, Plt Count 218, MPV 9.4, Immature Gran % (Auto) 0.300, Neut % (Auto) 78.3 H, Lymph % (Auto) 11.2 L, [place] % (Auto) 9.2, Eos % (Auto) 0.2, Baso % (Auto) 0.8, Absolute Neuts (auto) 5.1, Absolute Lymphs (auto) 0.73 L, Nucleated RBC % 0 10/14/22 15:36: Sodium 138, Potassium 2.9 L, Chloride 101, Carbon Dioxide 22.0, Anion Gap 15, BUN 11, Creatinine 0.63, Estim Creat Clear Calc 29.42, Est GFR (MDRD) Af Amer 115, Est GFR (MDRD) Non-Af 95, BUN/Creatinine Ratio 17.4, Glucose 72 L, Calcium 9.1 10/14/22 16:50: Urine Color Yellow, Urine Clarity Clear, Urine pH 6.5, Ur Specific [place] 1.020, Urine Protein 30 H, Urine Glucose (UA) Normal, Urine Ketones 150 A*, Urine Occult Blood 10 H, Urine Nitrite Positive H, Urine Bilirubin Negative, Urine Urobilinogen 1 H, Ur Leukocyte Esterase 25 H, Urine RBC 0-5 SEEN, Urine WBC 0-5 SEEN, Ur Squamous Epith Cells 0-5 SEEN, Urine Bacteria 0 SEEN, Urine Mucus 0 SEEN 10/15/22 05:32: WBC 5.9, RBC 4.31, Hgb 12.2, Hct 37.2, MCV 86.3, MCH 28.3, MCHC 32.8, RDW Std Deviation 41.9, RDW Coeff of Evelyn 13.3, Plt Count 203, MPV 9.3, Immature Gran % (Auto) 0.500, Neut % (Auto) 76.2 H, Lymph % (Auto) 13.1 L, [place] % (Auto) 8.5, Eos % (Auto) 1.0, Baso % (Auto) 0.7, Absolute Neuts (auto) 4.5, Absolute Lymphs (auto) 0.77 L, Nucleated RBC % 0 10/15/22 05:32: Sodium 141, Potassium 3.4 L, Chloride 109 H, Carbon Dioxide 20.0 L, Anion Gap 12, BUN 9, Creatinine 0.43 L, Estim Creat Clear Calc 27.50, Est GFR (MDRD) Af Amer 182, Est GFR (MDRD) Non-Af 150, BUN/Creatinine Ratio 21.1 H, Glucose 56 L, Calcium 7.9 L, Magnesium 2.1 Microbiology: Microbiology 10/14/22 16:49 Nasal Secretion SARS-CoV-2 & FLU Antigen (Rapid) - Final Radiography Diagnostic Testing: Radiology Impression Chest X-Ray 10/14/22 15:40 IMPRESSION: Mild atelectasis in the lower left lung. Electronically Signed: Robin Fortune MD at 16:58 EDT , D/C Instructions Discharge Diet: No restrictions Discharge Activity: Return to Normal Activity Call your doctor if you observe: Fever of 101 or Higher, Shortness of breath, Fainting spells and Chest pain Meaningful Use Info Meaningful Use Diagnoses (Choose all that apply): None applicable Discharge Plan Admission Admit Date/Time: 10/14/22 19:25 Attending Provider: Jarek Galeana Primary Care Provider: Debi Escobedo Consulting Providers: Teja Sauceda Discharge Orders/Prescriptions Prescriptions: New potassium chloride [Klor-Con M20] 20 mEq Tablet,Er Particles/Crystals 20 meq PO BIDCM Qty: 20 0RF Continued montelukast 10 mg tablet 10 mg PO DAILY citalopram 40 mg tablet 20 mg PO QHS donepezil 10 mg tablet 10 mg PO QHS atorvastatin 40 mg tablet 40 mg PO QDAY Qty: 90 3RF aspirin 81 mg tablet,chewable 81 mg PO DAILY acetaminophen 500 MG tablet 1,000 mg PO Q8H PRN PRN (Reason: Pain Score 4-10/10) Qty: 100 0RF nitrofurantoin monohyd/m-cryst 100 mg capsule 100 mg PO Q12 Qty: 10 0RF Discontinued lisinopril 10 mg tablet 10 mg PO DAILY amlodipine 10 mg tablet 10 mg PO DAILY Qty: 30 0RF Referrals / Follow Up: Debi Escobedo DO [Primary Care Provider] - In 1 Week Disposition Disposition (needs filled in before D/C Order can be placed): Home, Self Care Charges/Coding Visit Charges Inpatient E&M: 97604 Disch Hosp >30min
--- NOTE | 2022-10-15 11:06 | PHA.DC.MR ---
Pharmacy Service has performed discharge medication reconciliation for this patient. The patient's discharge medication list was reviewed for discrepancies and discrepancies were resolved. Home Medications acetaminophen 500 mg tablet 1,000 mg PO Q8H PRN PRN Pain Score 4-10/10 #100 tabs 11/23/19 montelukast 10 mg tablet 10 mg PO DAILY Check with primary doctor 01/04/20 aspirin 81 mg chewable tablet 81 mg PO DAILY HEALTH MAINTENANCE 04/25/21 citalopram 40 mg tablet 20 mg PO QHS mental health 04/25/21 donepezil 10 mg tablet 10 mg PO QHS memory 01/31/22 atorvastatin 40 mg tablet 40 mg PO QDAY #90 tabs 08/01/22 nitrofurantoin monohydrate/macrocrystals 100 mg capsule 100 mg PO Q12 #10 CAPSULES 10/10/22 potassium chloride 20 mEq tablet,extended release(part/cryst) (Klor-Con M) 20 meq PO BIDCM #20 tabs 10/15/22
[2022-10-15 12:48] VITALS: BP 98/70; PULSE 74; RESP 18; TEMP 37.2; O2SAT 98
== END 2022-10-15 13:11 | disposition home or self-care (01) ==
LOC: ED 19:17 → MS3 19:37
PROVIDERS: Emergency Provider Student in an Organized Health Care Education/Training Program; PCP Family Medicine; Visit Provider Internal Medicine
DX: I95.1 Orthostatic hypotension (principal); F03.90 Unspecified dementia, unspecified severity, without behavioral disturbance, psychotic disturbance, mood disturbance, and anxiety; E88.89 Other specified metabolic disorders; N39.0 Urinary tract infection, site not specified; I10 Essential (primary) hypertension; E87.6 Hypokalemia; E78.5 Hyperlipidemia, unspecified; E86.0 Dehydration; Z79.899 Other long term (current) drug therapy; Z79.82 Long term (current) use of aspirin; Z95.0 Presence of cardiac pacemaker; F32.A Depression, unspecified
CPT/HCPCS: 36415; 71045; 80048; 81001; 83735; 85025; 87428; 93005; 96361; 96365; 96375; 97162; 97166; 97802; 99221; 99285; J7030; A4216; G0378; J2405

== ENCOUNTER → 2022-10-22 | Outpatient (CLI) | payer MEDICARE, SELFPAY ==
[2022-10-22 13:08] LABS: Potassium 5.3 mmol/L (3.5-5.1)
== END | disposition home or self-care (01) ==
LOC: MFPLAB 10:31
PROVIDERS: PCP Family Medicine; Visit Provider Family Medicine
DX: R53.1 Weakness (principal)
CPT/HCPCS: 36415; 84132

== ENCOUNTER → 2022-10-31 | Outpatient (CLI) | payer MEDICARE, SELFPAY ==
[2022-10-31 12:23] LABS: Anion Gap 7 (5-15); BUN 13 mg/dL (7-18); BUN/Creat Ratio 12.4 RATIO (10-20); Chloride 103 mmol/L (98-107); Creatinine, Serum 1.05 mg/dL (0.55-1.02); EST Glomerular Filtration Rate 53 mL/min (>60); Est Glom Filt Rate - Afr Amer 64 mL/min (>60); Glucose 87 mg/dL (74-106); Potassium 3.9 mmol/L (3.5-5.1); Sodium Level 136 mmol/L (136-145)
== END | disposition home or self-care (01) ==
PROVIDERS: PCP Family Medicine; Visit Provider Family Medicine
DX: R53.1 Weakness (principal)
CPT/HCPCS: 36415; 80048

== ENCOUNTER → 2023-03-14 | Outpatient (CLI) | payer MEDICARE, SELFPAY ==
[2023-03-14 18:01] LABS: Anion Gap 3 (5-15); BUN 14 mg/dL (7-18); BUN/Creat Ratio 16.7 RATIO (10-20); Calcium,Total 8.6 mg/dL (8.5-10.1); Chloride 108 mmol/L (98-107); Creatinine, Serum 0.84 mg/dL (0.55-1.02); EST Glomerular Filtration Rate 69 mL/min (>60); Est Glom Filt Rate - Afr Amer 83 mL/min (>60); Glucose 88 mg/dL (74-106); Potassium 3.7 mmol/L (3.5-5.1); Sodium Level 140 mmol/L (136-145)
== END | disposition home or self-care (01) ==
LOC: MFPLAB 16:35
PROVIDERS: PCP Family Medicine; Visit Provider Family Medicine
DX: R53.1 Weakness (principal)
CPT/HCPCS: 36415; 80048

== ENCOUNTER 2023-09-11 11:08 | Emergency (ER) | payer MEDICARE, SELFPAY ==
[2023-09-11 11:09] VITALS: BP 155/101; PULSE 85; RESP 17; TEMP 36.8; O2SAT 97; BMI 17.5
[2023-09-11 11:15] VITALS: BP 164/99; PULSE 82; RESP 19; TEMP 36.8; O2SAT 96
--- NOTE | 2023-09-11 11:33 | CT_ITS ---
STUDY: CT CERVICAL SPINE WITHOUT CONTRAST REASON FOR EXAM: Female, 87 years old. Cervical pain. Unwitnessed fall. RADIATION DOSAGE (If Supplied By Facility): CTDIvol = ( 20.12 ) mGy, DLP = ( 355.47 ) mGycm TECHNIQUE: High resolution transaxial imaging was performed without contrast material. Sagittal and coronal images were reconstructed. Individualized dose optimization techniques were used for this CT. COMPARISON: None FINDINGS: Normal craniovertebral junction. There are degenerative changes of the anterior atlantoaxial articulation. Normal odontoid process. Normal cervical lordosis. C2-3: Normal endplates. Normal disc height and morphology. Normal central canal and intervertebral neuroforamina. C3-4: Moderate degree of disc space narrowing. Uncovertebral arthrosis. Facet joint osteoarthritis. Minimal degree of retrolisthesis of C3 on C4. C4-5: Moderate degree of disc space narrowing. Uncovertebral arthrosis. Facet joint osteoarthritis and hypertrophy. Mild degree of bilateral neural foraminal stenosis. C5-6: Moderate degree of disc space narrowing. Spondylosis. Uncovertebral arthrosis. Mild degree of bilateral neural foraminal stenosis. C6-7: Moderate degree of disc space narrowing. Uncovertebral arthrosis and bilateral neural foraminal stenosis. C7-T1: Normal endplates. Normal disc height and morphology. Normal central canal and intervertebral neuroforamina. Atherosclerotic calcification of the carotid bifurcations bilaterally. CT/Spine Cervical without Contras IMPRESSION: Multilevel degenerative changes, as described above. Electronically Signed: Joesph Fink MD at 13:00 EDT ,
--- NOTE | 2023-09-11 11:33 | CT_ITS ---
STUDY: CT BRAIN WITHOUT CONTRAST REASON FOR EXAM: Female, 87 years old. Head injury due to a fall. RADIATION DOSAGE (If Supplied By Facility): CTDIvol = ( 44.99 ) mGy, DLP = ( 799.24 ) mGycm TECHNIQUE: Transaxial CT imaging of the brain was performed without administration of intravenous contrast material. Individualized dose optimization techniques were used for this CT. COMPARISON: Comparison is made with prior study October 08, 2022. FINDINGS: Normal soft tissue structures. Normal calvarium. There is moderate cerebral atrophy with widening of the extra-axial spaces and ventricular dilatation. There are areas of decreased attenuation within the white matter tracts of the supratentorial brain, consistent with microvascular disease changes. Normal basal ganglia and thalami. Normal brainstem. Normal cerebellum. There is no intracranial hemorrhage. There are no findings of an acute ischemic infarction. Atherosclerotic calcification of the cavernous portions of the internal carotid arteries bilaterally. Normal visualized paranasal sinuses. CT/Brain/Head without Contrast IMPRESSION: Chronic involutional changes of the brain. Electronically Signed: Joesph Fink MD at 13:07 EDT ,
--- NOTE | 2023-09-11 11:33 | EKG12_ITS ---
Test Reason : Blood Pressure : / mmHG Vent. Rate : 079 BPM Atrial Rate : 079 BPM P-R Int : 178 ms QRS Dur : 150 ms QT Int : 488 ms P-R-T Axes : 068 -60 107 degrees QTc Int : 559 ms Atrial-sensed ventricular-paced rhythm Abnormal ECG Confirmed by BART REDD, REYES ([id number]), proposal editor KALINA ROBB ([id number]) on 09/15/2023 10:28:25 AM Referred By: Confirmed By:JUVENTINO ARRIAGA MD
--- NOTE | 2023-09-11 11:47 | EX.ED.DYSGE1 ---
HPI History of Present Illness Chief Complaint: Alt LOC Narrative Narrative: Patient is an 87-year-old female that lives at home with her , patient has history of severe bradycardia that she currently has a pacemaker, history of hypertension hyperlipidemia who is currently not on any blood thinners, dementia who presents to the emergency department after mechanical fall and weakness. Per the , he heard the patient fall in the bathroom at roughly around 7 AM. When he was there, she was on the ground. Patient is complaining of headache, neck pain, per the daughter and , she has been more aggressive and more confused than normal. The daughter is concerned about a possible UTI, the patient can also not stand or walk at this time. [facility] Medical History (Updated 09/11/23 @ 13:56 by GERTRUDE Mcgovern) Anemia Bronchiectasis Chest pain, unspecified Chronic cough Complete heart block DDD (degenerative disc disease) Dementia Depression Essential (primary) hypertension HLD (hyperlipidemia) Near syncope Osteoporosis Paroxysmal atrial tachycardia Shortness of breath Visual loss Home Medications acetaminophen 500 mg tablet 1,000 mg (2 x 500 mg) PO Q8H PRN PRN Pain Score 4-10/10 #100 tabs 11/23/19 [Rx Last Taken Unknown] montelukast 10 mg tablet 10 mg PO DAILY Check with primary doctor 01/04/20 [History Last Taken 10/14/22] aspirin 81 mg chewable tablet 81 mg PO DAILY HEALTH MAINTENANCE 04/25/21 [History Last Taken 10/14/22] citalopram 40 mg tablet 20 mg PO QHS mental health 04/25/21 [History Last Taken 10/13/22] donepezil 10 mg tablet 10 mg PO QHS memory 01/31/22 [History Last Taken 10/13/22] atorvastatin 40 mg tablet 40 mg PO QDAY #90 tabs 08/01/22 [Rx Last Taken 10/13/22] nitrofurantoin monohydrate/macrocrystals 100 mg capsule 100 mg PO Q12 #10 CAPSULES 10/10/22 [Rx Last Taken 10/14/22] potassium chloride 20 mEq tablet,extended release(part/cryst) (Klor-Con M) 20 meq PO BIDCM #20 tabs 10/15/22 [Rx Last Taken Unknown] Allergy/AdvReac Type Severity Reaction Status Date / Time codeine Allergy Unknown Verified 09/11/23 11:09 Penicillins Allergy Unknown Verified 09/11/23 11:09 Sulfa (Sulfonamide Allergy Unknown Verified 09/11/23 11:09 Antibiotics) Family History Father , at age 82 CVA (cerebral vascular accident) CAD (coronary artery disease) Mother CAD (coronary artery disease) stomach aneurysm Brother Myocardial infarction CAD (coronary artery disease) CABG Sister CAD (coronary artery disease) Surgical History H/O shoulder surgery History of bunionectomy History of left heart catheterization History of open reduction and internal fixation (ORIF) procedure (11/2019) 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) History of right and left heart catheterization Social History Smoking Status: Never smoker alcohol intake: never substance use type: does not use caffeine: Yes Type: carbonated beverages and coffee what type of physical activity do you participate in: none seatbelt use: always do you feel safe at home: Yes ROS ROS ED ROS Narrative Constitutional: Negative for fever, chills, weight loss. Positive for weakness Eyes: Negative for vision loss, vision change, double vision ENT: Negative for any sore throat, ear pain, congestion Cardiovascular: Negative for any chest pain, tightness, palpitations Respiratory: Negative for any cough, sputum production, hemoptysis, dyspnea, dyspnea on exertion, orthopnea Gastrointestinal: Negative for any abdominal pain, nausea, vomiting, diarrhea, constipation, blood in stool, blood in vomit : Negative for any urinary frequency, dysuria, retention, blood in urine Muscle skeletal: Negative for any back pain. Positive for neck pain, right knee pain Neurological: Negative for any syncope, dizziness. Positive headache Skin: Negative for any rashes, itching, abrasions, lacerations Psychiatric: Negative for any depression, anxiety, stress, suicidal ideation, homicidal ideation Hematologic: Negative for any excessive bruising, easy bleeding EXAM Physical Exam Narrative Exam Narrative: Vital signs reviewed. Patient is alert and oriented x 2. HEET: Head normocephalic atraumatic, TMs clear bilaterally. Posterior pharynx is clear, moist mucous membranes. Nares clear bilaterally. Pupils are equal round reactive to light, negative for any hemotympanum or septal hematoma. Neck: Supple with no lymphadenopathy or tenderness. No signs of meningismus. Tenderness more towards the lateral aspects of the cervical spine. Cardiac: Regular rate and rhythm no murmurs gallops or rubs, equal peripheral pulses bilaterally. Respiratory: Lungs clear to auscultation bilaterally. No chest tenderness. Abdomen: Soft, nontender, nondistended. No abdominal bruit or pulsatile masses. No hepatosplenomegaly Extremities: No peripheral edema, no signs of gross trauma or deformity. Active full range of motion of all extremities. Patient has slight swelling to the right knee, able to bend and extend without any difficulty. No hip pain. No pelvic pain. Neuro: Cranial nerves II through XII intact, no focal neurological deficits. Skin: Clean dry and intact with no rash, purpura, petechiae, vesicles or pustules. Backs/flank: No CVA tenderness, no midline spinal tenderness, no deformity. Psych: Normal mood and affect. No SI, HI or acute psychosis. Const Vital Signs: 09/11/23 11:09 09/11/23 11:15 09/11/23 12:09 Temperature 98.3 F 98.3 F Temperature Source Oral Oral Pulse Rate 85 82 82 Respiratory Rate 17 19 H 16 Blood Pressure 155/101 H 164/99 H 154/83 H Blood Pressure Mean 119 120 106 Pulse Ox 97 96 98 Oxygen Delivery Method Room Air Room Air Room Air 09/11/23 12:15 09/11/23 13:00 09/11/23 13:00 Temperature 98.2 F 98.4 F Temperature Source Oral Temporal Pulse Rate 82 73 73 Respiratory Rate 16 18 18 Blood Pressure 154/83 H 154/90 H 154/90 H Blood Pressure Mean 106 111 111 Pulse Ox 99 98 98 Oxygen Delivery Method Room Air Room Air Room Air Positive well nourished and well developed General Appearance ED: well developed MDM MDM Lab Data Labs: Laboratory Results - last 24 hr 09/11/23 09/11/23 11:44 12:50 WBC 6.9 RBC 4.63 Hgb 13.1 Hct 40.6 MCV 87.7 MCH 28.3 MCHC 32.3 RDW Std Deviation 41.5 RDW Coeff of Evelyn 12.9 Plt Count 164 MPV 9.7 Immature Gran % (Auto) 0.300 Neut % (Auto) 75.8 H Lymph % (Auto) 13.0 L [place] % (Auto) 10.1 H Eos % (Auto) 0.4 Baso % (Auto) 0.4 Absolute Neuts (auto) 5.2 Absolute Lymphs (auto) 0.90 Nucleated RBC % 0 Sodium 138 Potassium 3.5 Chloride 104 Carbon Dioxide 25.0 Anion Gap 9 BUN 14 Creatinine 0.71 Estim Creat Clear Calc 36.44 Est GFR (MDRD) Af Amer 100 Est GFR (MDRD) Non-Af 83 BUN/Creatinine Ratio 19.7 Glucose 86 Calcium 8.9 Urine Color Yellow Urine Clarity Cloudy Urine pH 6.0 Ur Specific [place] 1.020 Urine Protein Negative Urine Glucose (UA) Normal Urine Ketones 5 H Urine Occult Blood 50 H Urine Nitrite Negative Urine Bilirubin Negative Urine Urobilinogen 4 H Ur Leukocyte Esterase 25 H Urine RBC 0-5 SEEN Urine WBC 0-5 SEEN Ur Squamous Epith Cells 0 SEEN Urine Bacteria 4+ Urine Mucus 0 SEEN Radiography Diagnostic Testing: Clinical Impression(s) from Imaging Studies Brain CT 09/11/23 11:33 IMPRESSION: Chronic involutional changes of the brain. Electronically Signed: Joesph Fink MD at 13:07 EDT , Cervical Spine CT 09/11/23 11:33 IMPRESSION: Multilevel degenerative changes, as described above. Electronically Signed: Joesph Fink MD at 13:00 EDT , Chest X-Ray 09/11/23 12:30 IMPRESSION: Stable elevation of the left hemidiaphragm. Stable mild increased markings at the lung bases suggestive of mild basilar scarring. Electronically Signed: Joesph Fink MD at 13:09 EDT , Knee X-Ray 09/11/23 12:30 IMPRESSION: Degenerative arthrosis. Small joint effusion. Chondrocalcinosis. Electronically Signed: Joesph Fink MD at 13:10 EDT , EKG Paced rhythm, rate of 79 bpm: Attestation: I personally reviewed and interpreted this EKG as follows: Comments: Atrial sensed rhythm, 79 bpm, CT interval 178 ms, QRS duration 150 ms, no acute ST elevation, no acute infarct noted. Treatment and Re-Evaluation :: Differential diagnosis includes however is not limited to: Skull fracture, concussion, UTI, electrolyte abnormality, cervical strain, knee contusion, knee fracture, acute on chronic dementia Patient appears to be in no obvious distress, patient is alert and orient x 2 on my examination. Patient has no evidence of any stroke, patient is speaking clearly, moving all extremities. There is no facial droop. Patient will receive basic laboratory values secondary to the weakness, looking for any electrolyte abnormalities, EKG was completed. Showing paced rhythm. Patient received a CT scan of the brain and cervical spine, right knee x-rays and chest x-ray. Urine cath will be completed to rule out UTI. Patient be given fluids as well as oral Tylenol. Patient will be reevaluated Patient's CBC was unremarkable, chemistries were unremarkable. CT scan of the brain, cervical spine were negative for any acute process. Chest x-ray showed stable mild increased markings at lung bases, no acute process. X-ray of the knee shows a joint effusion however no fracture. Urinalysis did show 4+ bacteria, 25 leukocyte esterase, however patient is having no urinary symptoms, at this time, patient urine will be sent for culture. If the culture does grow anything they will be notified and an antibiotic will be ordered. I spoke with the patient's as well as the patient's daughter, they are happy with the patient. The patient was able to ambulate without any difficulty, the patient is much more awake, alert, and would like to leave to eat. At this time, they feel comfortable taking home, they will return for any worsening symptoms. Patient stable for discharge. Discharge Plan Triage Chief Complaint: Alt LOC ED Midlevel Provider: Lamin Olmstead ED Provider: Aiden Jerome Dx/Rx/DC Orders Clinical Impression: Joint effusion, knee, Bacteriuria, Cervical muscle strain, Head injury, Fall Instructions: Concussion Dc, ED Knee Effusion, ED Neck Sprain or Strain Prescriptions: No Action montelukast 10 mg tablet 10 mg PO DAILY citalopram 40 mg tablet 20 mg PO QHS donepezil 10 mg tablet 10 mg PO QHS atorvastatin 40 mg tablet 40 mg PO QDAY Qty: 90 3RF aspirin 81 mg tablet,chewable 81 mg PO DAILY acetaminophen 500 MG tablet 1,000 mg PO Q8H PRN PRN (Reason: Pain Score 4-10/10) Qty: 100 0RF nitrofurantoin monohyd/m-cryst 100 mg capsule 100 mg PO Q12 Qty: 10 0RF potassium chloride [Klor-Con M20] 20 mEq Tablet,Er Particles/Crystals 20 meq PO BIDCM Qty: 20 0RF Primary Care Provider: Debi Escobedo Referrals: Debi Escobedo, [Primary Care Provider] - Activity Restrictions/Additional Instructions: Please maintain hydration. Return for any worsening symptoms. Disposition Disposition: Home, Self Care
[2023-09-11 11:52] LABS: Absolute Neutrophil Count 5.2 X10^3/uL (2.0-7.7); Basophil# 0.03 X10^3/uL; Basophil% 0.4 % (0-1); Eosinophil# 0.03 X10^3/uL; Eosinophils% 0.4 % (0-5); Hematocrit 40.6 % (37-47); Hemoglobin 13.1 g/dL (12.0-15.0); Mean Corp Hgb Conc 32.3 g/dL (32-36); Mean Corpuscular Hgb 28.3 pg (27.0-32.0); Mean Corpuscular Volume 87.7 fL (81-99); Mean Platelet Vol. 9.7 fl (6.2-12.0); Monocyte% 10.1 % (0-10); NRBC Flagged by Analyzer 0 % (0-5); Neutrophil # 5.23 X10^3/uL (2.7-7.7); Neutrophil % 75.8 % (47-70); Platelet Count 164 K/mm3 (150-450); RBC Distribution Width CV 12.9 % (11.6-14.6); RBC Distribution Width SD 41.5 fl (35.1-43.9); Red Blood Count 4.63 M/mm3 (4.2-5.4); White Blood Count 6.9 K/mm3 (4.4-11.0)
[2023-09-11] MEDS: Acetaminophen 500 MG Tablet PO (12:08)
[2023-09-11 12:09] VITALS: BP 154/83; PULSE 82; RESP 16; O2SAT 98
[2023-09-11] MEDS: 0.9% Normal Saline (1000mL) 1,000 ML 1000 ML IV (12:09)
[2023-09-11 12:11] LABS: Anion Gap 9 (5-15); BUN 14 mg/dL (7-18); BUN/Creat Ratio 19.7 RATIO (10-20); Calcium,Total 8.9 mg/dL (8.5-10.1); Chloride 104 mmol/L (98-107); Creatinine, Serum 0.71 mg/dL (0.55-1.02); EST Glomerular Filtration Rate 83 mL/min (>60); Est Glom Filt Rate - Afr Amer 100 mL/min (>60); Estimated Creatinine Clearance 36.44 ml/min; Glucose 86 mg/dL (74-106); Potassium 3.5 mmol/L (3.5-5.1); Sodium Level 138 mmol/L (136-145)
[2023-09-11 12:15] VITALS: BP 154/83; PULSE 82; RESP 16; TEMP 36.8; O2SAT 99
--- NOTE | 2023-09-11 12:30 | RAD_ITS ---
STUDY: X-RAY - RIGHT KNEE REASON FOR EXAM: Female, 87 years old. Right TECHNIQUE: 4 view(s) of the knee. COMPARISON: None. FINDINGS: Normal visualized distal femur. Normal visualized proximal tibia and fibula. Normal proximal tibiofibular articulation. Normal medial femorotibial compartment. There is moderate degenerative arthrosis of the lateral femorotibial compartment with moderate joint space narrowing. There is mild degenerative arthrosis of the patellofemoral articulation. Small joint effusion. Calcification of the medial meniscus with chondrocalcinosis. RAD/Knee 4 or More Views IMPRESSION: Degenerative arthrosis. Small joint effusion. Chondrocalcinosis. Electronically Signed: Joesph Fink MD at 13:10 EDT ,
--- NOTE | 2023-09-11 12:30 | RAD_ITS ---
STUDY: X-RAY CHEST REASON FOR EXAM: Female, 87 years old. Cough TECHNIQUE: Single AP portable view of the chest. COMPARISON: Comparison is made with prior study October 14, 2022. FINDINGS: EKG electrodes are seen. There is stable elevation of the left hemidiaphragm. Stable mild increased markings at the lung bases suggestive of scarring. There is no demonstrated pleural abnormality. Normal size heart. Left-sided dual-chamber pacemaker is seen. Normal mediastinum and dick. Normal visualized pulmonary arteries. There is atherosclerotic calcification of the aortic arch with tortuosity. There are diffuse degenerative changes of the visualized thoracic spine. Normal visualized ribs, clavicles, and shoulders. There is no demonstrated abnormality of the visualized soft tissue structures of the upper abdomen. RAD/Chest 1 View (Portable) IMPRESSION: Stable elevation of the left hemidiaphragm. Stable mild increased markings at the lung bases suggestive of mild basilar scarring. Electronically Signed: Joesph Fink MD at 13:09 EDT ,
[2023-09-11 12:54] LABS: Mucous, Urine 0 SEEN /hpf (<or=2+); Squamous Epithelial Cells - UA 0 SEEN /hpf (5-10)
[2023-09-11 13:00] VITALS: BP 154/90; PULSE 73; RESP 18; TEMP 36.9; O2SAT 98
[2023-09-11 13:02] LABS: Color, Urine Yellow (Yellow); Glucose, Dipstick Normal (Normal); Ketone-Dipstick 5 mg/dl (Negative); Leukocyte Esterase-Dipstick 25 /ul (Negative); Nitrite-Dipstick Negative (Negative); Occult Blood-Urine 50 /ul (Negative); Protein-Dipstick Negative (Negative); Urine Bilirubin Dipstick Negative (Negative); Urine Clarity Cloudy (Clear); Urine Urobilinogen 4 mg/dl (Normal)
[2023-09-11 13:18] LABS: Bacteria 4+ /hpf (None Seen); Red Blood Cells-Urine 0-5 SEEN /hpf (0-5); White Blood Cells 0-5 SEEN /hpf (0-5)
[2023-09-11 14:00] VITALS: BP 152/94; PULSE 85; RESP 21; TEMP 36.9; O2SAT 96
== END 2023-09-11 14:28 | disposition home or self-care (01) ==
PROVIDERS: Nurse Practitioner; Emergency Provider Emergency Medicine; PCP Family Medicine; Visit Provider Emergency Medicine
DX: S09.90XA Unspecified injury of head, initial encounter (principal); F03.90 Unspecified dementia, unspecified severity, without behavioral disturbance, psychotic disturbance, mood disturbance, and anxiety; R82.71 Bacteriuria; S16.1XXA Strain of muscle, fascia and tendon at neck level, initial encounter; Z95.0 Presence of cardiac pacemaker; I10 Essential (primary) hypertension; E78.5 Hyperlipidemia, unspecified; W19.XXXA Unspecified fall, initial encounter; Y92.002 Bathroom of unspecified non-institutional (private) residence as the place of occurrence of the external cause; Z79.899 Other long term (current) drug therapy; Z79.82 Long term (current) use of aspirin; F32.A Depression, unspecified; M25.461 Effusion, right knee
CPT/HCPCS: 70450; 71045; 72125; 73564; 80048; 81001; 85025; 87086; 87088; 87186; 93005; 96360; 96361; 99284; J7030; P9612; A4216

== ENCOUNTER → 2023-11-27 | Outpatient (CLI) | payer MEDICARE, SELFPAY ==
[2023-11-27 15:23] LABS: Hematocrit 43.9 % (37-47); Hemoglobin 13.6 g/dL (12.0-15.0); Mean Corpuscular Hgb 27.5 pg (27.0-32.0); Mean Corpuscular Volume 88.9 fL (81-99); Mean Platelet Vol. 10.1 fl (6.2-12.0); Platelet Count 230 K/mm3 (150-450); RBC Distribution Width CV 14.6 % (11.6-14.6); RBC Distribution Width SD 47.4 fl (35.1-43.9); Red Blood Count 4.94 M/mm3 (4.2-5.4); White Blood Count 6.2 K/mm3 (4.4-11.0)
[2023-11-27 15:40] LABS: Vitamin B12 286 pg/mL (211-911)
[2023-11-27 16:11] LABS: ALB/GLOB Ratio 1.2 RATIO (0.9-2.4); AST(SGOT) 27 U/L (15-37); Alanine Aminotransfer ALT/SGPT 16 U/L (13-56); Albumin, Serum 3.8 g/dL (3.2-5.0); Alkaline Phosphatase 83 U/L (45-117); Anion Gap 6 (5-15); BUN 11 mg/dL (7-18); Calcium,Total 9.3 mg/dL (8.5-10.1); Chloride 105 mmol/L (98-107); Creatinine, Serum 0.79 mg/dL (0.55-1.02); EST Glomerular Filtration Rate 74 mL/min (>60); Est Glom Filt Rate - Afr Amer 89 mL/min (>60); Globulin 3.2 g/dL (2.2-4.2); Glucose 88 mg/dL (74-106); Potassium 3.7 mmol/L (3.5-5.1); Sodium Level 138 mmol/L (136-145); Thyroid Stim Hormone (TSH) 1.78 uIU/mL (0.358-3.74)
[2023-12-02 20:07] LABS: Vitamin B1, Thiamine 131.9 nmol/L (66.5-200.0)
== END | disposition home or self-care (01) ==
PROVIDERS: PCP Family Medicine; Referring Provider Psychiatry & Neurology Neurology; Visit Provider Psychiatry & Neurology Neurology
DX: F03.90 Unspecified dementia, unspecified severity, without behavioral disturbance, psychotic disturbance, mood disturbance, and anxiety (principal); E78.5 Hyperlipidemia, unspecified
CPT/HCPCS: 36415; 80053; 82607; 82746; 84425; 84443; 85027

== ENCOUNTER 2024-03-09 14:25 | Emergency (ER) | payer MEDICARE, SELFPAY ==
[2024-03-09 14:26] VITALS: BP 175/100; PULSE 93; RESP 16; TEMP 36.6; O2SAT 96
--- NOTE | 2024-03-09 14:50 | RAD_ITS ---
INDICATION: Trauma, injury EXAMINATION/TECHNIQUE: X-RAY - LEFT XR Shoulder Min 2 Views 2 VIEWS COMPARISON: 12/14/2015 FINDINGS: SOFT TISSUES: No soft tissue swelling or gas. Interval left shoulder arthroplasty. Stable transvenous pacemaker. BONES/JOINTS: No acute fracture. No pathologic lucency about the left shoulder prosthesis. Joint spaces anatomically maintained. No sclerotic or destructive changes observed. RAD/Shoulder min 2 Views IMPRESSION: No acute bony injury. Electronically Signed: Matt Cash MD at 17:24 EDT ,
--- NOTE | 2024-03-09 14:50 | RAD_ITS ---
INDICATION: Trauma, injury EXAMINATION/TECHNIQUE: X-RAY - XR Hip Unilateral with Pelvis when performed; 2-3 Views COMPARISON: Prior study dated: 11/11/2019 FINDINGS: PELVIC BONES: No displaced fracture, destructive or sclerotic lesions. Note that overlapping bowel shadows may however obscure fine detail. Sacroiliac joints are unremarkable. No widening of the pubic symphysis. HIPS: Joint spaces well-maintained bilaterally. No acute fracture. SOFT TISSUES: No soft tissue swelling or gas. RAD/HIP, UNI W/ Pelvis 2-3 Views IMPRESSION: No acute bony injury. Electronically Signed: Matt Cash MD at 17:23 EDT ,
[2024-03-09 16:01] VITALS: BP 164/112; PULSE 84; RESP 14; O2SAT 95
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
[2024-03-09] MEDS: Acetaminophen 325 MG Tablet 975 MG PO (16:14)
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
[2024-03-09 18:00] VITALS: BP 151/76; PULSE 84; RESP 16; O2SAT 95
== END 2024-03-09 18:25 | disposition home or self-care (01) ==
PROVIDERS: Emergency Provider Emergency Medicine; PCP Family Medicine; Visit Provider Emergency Medicine
DX: M25.552 Pain in left hip (principal); F03.90 Unspecified dementia, unspecified severity, without behavioral disturbance, psychotic disturbance, mood disturbance, and anxiety; I10 Essential (primary) hypertension; S90.32XA Contusion of left foot, initial encounter; E78.5 Hyperlipidemia, unspecified; M25.512 Pain in left shoulder; Z95.0 Presence of cardiac pacemaker; V43.62XA Car passenger injured in collision with other type car in traffic accident, initial encounter
CPT/HCPCS: 73030; 73502; 73630; 99284

== ENCOUNTER 2024-03-12 16:13 | Emergency (ER) | payer OTHER, MEDICARE, SELFPAY ==
[2024-03-12 16:15] VITALS: BP 127/88; PULSE 85; RESP 18; TEMP 36.4; O2SAT 100
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
[2024-03-12 17:07] LABS: Absolute Lymphocyte Count 1.42 X10^3/uL (0.83-4.51); Absolute Neutrophil Count 5.7 X10^3/uL (2.0-7.7); Basophil# 0.05 X10^3/uL; Basophil% 0.6 % (0-1); Eosinophil# 0.07 X10^3/uL; Eosinophils% 0.9 % (0-5); Hematocrit 41.3 % (37-47); Hemoglobin 13.4 g/dL (12.0-15.0); Lymphocyte # 1.42 X10^3/ul (0.83-4.51); Lymphocyte % 17.5 % (19-41); Mean Corp Hgb Conc 32.4 g/dL (32-36); Mean Corpuscular Hgb 27.7 pg (27.0-32.0); Mean Corpuscular Volume 85.5 fL (81-99); Mean Platelet Vol. 9.4 fl (6.2-12.0); Monocyte# 0.83 X10^3/uL; Monocyte% 10.2 % (0-10); NRBC Flagged by Analyzer 0 % (0-5); Neutrophil # 5.69 X10^3/uL (2.7-7.7); Neutrophil % 70.3 % (47-70); Platelet Count 251 K/mm3 (150-450); RBC Distribution Width CV 13.4 % (11.6-14.6); RBC Distribution Width SD 42.2 fl (35.1-43.9); Red Blood Count 4.83 M/mm3 (4.2-5.4); White Blood Count 8.1 K/mm3 (4.4-11.0)
[2024-03-12 17:19] LABS: Anion Gap 7 (5-15); BUN 12 mg/dL (7-18); BUN/Creat Ratio 13.2 RATIO (10-20); Calcium,Total 8.8 mg/dL (8.5-10.1); Chloride 105 mmol/L (98-107); Creatinine, Serum 0.91 mg/dL (0.55-1.02); EST Glomerular Filtration Rate 63 mL/min (>60); Est Glom Filt Rate - Afr Amer 76 mL/min (>60); Glucose 64 mg/dL (74-106); Potassium 2.9 mmol/L (3.5-5.1); Sodium Level 139 mmol/L (136-145)
--- OUTSIDE RECORDS SUMMARY | 2024-03-12 17:48 | XMS RPT_ITS | CCD ---
Author Organization [facility] Care Team Providers Care Welding Instructor Name Role Phone JOYCE Delgado, Caroline Grajeda Unavailable Unavailable DeFinis, Harumi Y Unavailable Unavailable DeFinis, Harumi Y Unavailable Unavailable DeFinis, Harumi Y Unavailable Unavailable JOYCE Delgado, Caroline Grajeda Unavailable Unavailable VALLADARES, BOSSMAN Y Unavailable Unavailable SELF, SELF Unavailable Unavailable HONEY AGOSTO Unavailable Unavailable VALLADARES, BOSSMAN Y Unavailable Unavailable VALLADARES, BOSSMAN Y Unavailable Unavailable HONEY AGOSTO Unavailable Unavailable JOYCE Delgado, Caroline Grajeda Unavailable Unavailable JOYCE Delgado, Caroline Grajeda Unavailable Unavailable JOYCE Delgado, Caroline Grajeda Unavailable Unavailable JOYCE Delgado, Caroline M Unavailable Unavailable DeFinis, Harumi Y Unavailable Unavailable JOYCE Delgado, Caroline M Unavailable Unavailable JOYCE Delgado, Caroline Grajeda Unavailable Unavailable Honey Agosto Primary Care Provider [phone] MD Michele, Zay S Unavailable Allergies Allergy Classification Reported Allergen(s) Allergy Type Date of Onset Reaction(s) Facility (13 sources) codeine drug allergy 1 [facility] Work Phone: [phone] (13 sources) penicillin drug allergy 1 [facility] Work Phone: [phone] (13 sources) Sulfonamides (Antibiotic) drug allergy 1 [facility] Work Phone: [phone] (1 source) Codeine Drug Allergy 8 Other: See Comments [facility] (1 source) Penicillin Drug Allergy 8 Itching [facility] (1 source) Sulfonamides (Antibiotic) Propensity to adverse reactions 8 Itching [facility] Medications Completed/Discontinued Medications Medication Drug Class(es) Dates Sig (Normalized) Sig (Original) 200 actuat albuterol 0.09 mg/actuat metered dose inhaler (13 sources) beta2-Adrenergic Agonist Start: 02-02-2016 PROAIR HFA 108 (90 Base) MCG/ACT AERS as needed ALBUTEROL SULFATE [id number] Manjinder Rodriguez EMERGENCY DEPARTMENT CLINICIAN-C Start: 02-02-2016 PROAIR HFA 108 (90 Base) MCG/ACT AERS as needed ALBUTEROL SULFATE [id number] Manjinder Rodriguez EMERGENCY DEPARTMENT CLINICIAN-C alendronic acid 70 mg oral tablet (20 sources) Bisphosphonate Start: 09-04-2010 End: 06-17-2011 FOSAMAX 70 MG TABS Once a week ALENDRONATE SODIUM [id number] Bg Ohara MD aspirin 81 mg oral tablet (13 sources) Nonsteroidal Anti-inflammatory Drug Start: 09-04-2010 take 1 tablet by mouth once daily ASPIRIN 81 MG TABS One tablet by mouth daily ASPIRIN [id number] Selena Iverson Start: 09-04-2010 take 1 tablet by isela th once daily ASPIRIN 81 MG TABS One tablet by mouth daily ASPIRIN [id number] Selena Iverson atorvastatin 80 mg oral tablet (20 sources) HMG-CoA Reductase Inhibitor Start: 09-04-2010 take 1 tablet by mouth once daily LIPITOR 80 MG TABS One tablet by mouth daily ATORVASTATIN CALCIUM [id number] Gabby Jaramillo, ISMAELC azithromycin 500 mg oral tablet (20 sources) Macrolide Antimicrobial Start: 02-02-2016 End: 05-24-2016 AZITHROMYCIN 500 MG TABS take as directed, from PCP AZITHROMYCIN [id number] Manjinder Rodriguez EMERGENCY DEPARTMENT CLINICIAN-C biotin (13 sources) Start: 06-15-2015 take 1 tablet by mouth twice daily BIOTIN FORTE TABS One tablet by mouth twice daily BIOTIN TABS [id number] Zay Bautista MD Start: 06-15-2015 take 1 tablet by isela th twice daily BIOTIN FORTE TABS One tablet by mouth twice daily BIOTIN TABS [id number] Zay Bautista MD cholecalciferol 400 unt oral tablet (20 sources) Vitamin D Start: 09-04-2010 End: 07-29-2013 take 1 tablet by mouth once daily VITAMIN D 400 UNIT TABS One tablet by mouth daily CHOLECALCIFEROL [id number] Zay Bautista MD citalopram 40 mg oral tablet (20 sources) Serotonin Reuptake Inhibitor Start: 12-28-2012 End: 07-29-2013 take 1 tablet by mouth once daily CELEXA 40 MG TABS One tablet by mouth daily CITALOPRAM HYDROBROMIDE [id number] Zay Bautista MD Start: 09-04-2010 take 1 tablet by isela once daily CELEXA 20 MG TABS One tablet by mouth daily CITALOPRAM HYDROBROMIDE [id number] Selena Iverson cyclobenzaprine hydrochloride 10 mg oral tablet (20 sources) Muscle Relaxant Start: 12-28-2012 End: 07-29-2013 CYCLOBENZAPRINE HCL 10 MG TABS As needed CYCLOBENZAPRINE HCL [id number] Zay Bautista MD 14 actuat fluticasone propionate 0.25 mg/actuat / salmeterol 0.05 mg/actuat dry powder inhaler (20 sources) Corticosteroid, beta2-Adrenergic Agonist Start: 08-08-2015 ADVAIR DISKUS 250-50 MCG/DOSE AEPB inhale one puff twice daily FLUTICASONE-SALMETEROL [id number] Zay Bautista MD Start: 08-08-2015 ADVAIR DISKUS 250-50 MCG/DOSE AEPB inhale one puff twice daily FLUTICASONE-SALMETEROL [id number] Zay Bautista MD Start: 09-04-2010 End: 07-29-2013 ADVAIR DISKUS 250-50 MCG/DOS E AEPB take as directed FLUTICASONE-SALMETEROL [id number] Zay Bautista MD Start: 09-04-2010 End: 07-29-2013 ADVAIR DISKUS 250-50 MCG/DOS E AEPB take as directed FLUTICASONE-SALMETEROL [id number] Zay Bautista MD Start: 09-04-2010 ADVAIR DISKUS 250-50 MCG/DOSE AEPB take as directed FLUTICASONE-SALMETEROL [id number] Selena Iverson furosemide 20 mg oral tablet (20 sources) Loop Diuretic Start: 06-15-2015 End: 05-24-2016 take 1 tablet by mouth once daily LASIX 20 MG TABS One tablet by mouth daily FUROSEMIDE [id number] Zay Bautista MD METHYLPREDNISOLONE (20 sources) Corticosteroid Start: 02-02-2016 End: 05-24-2016 MEDROL 4 MG TBPK Take as directed METHYLPREDNISOLONE [id number] Zay Bautista MD Start: 02-02-2016 MEDROL 4 MG TB PK Take as directed METHYLPREDNISOLONE [id number] Manjinder CAMERON Start: 02-02-2016 End: 05-24-2016 MEDROL 4 MG TBPK Take as dir ected METHYLPREDNISOLONE [id number] Zay Bautista MD Start: 02-02-2016 End: 05-24-2016 MEDROL 4 MG TBPK Take as dir ected METHYLPREDNISOLONE [id number] Zay Bautista MD Start: 02-02-2016 MEDROL 4 MG TB PK Take as directed METHYLPREDNISOLONE [id number] Manjinder CAMERON montelukast 10 mg oral tablet (20 sources) Leukotriene Receptor Antagonist Start: 09-04-2010 End: 07-29-2013 take 1 tablet by mouth once daily SINGULAIR 10 MG TABS One tablet by mouth daily MONTELUKAST SODIUM [id number] Zay Bautista MD naproxen sodium 220 mg oral tablet (20 sources) Nonsteroidal Anti-inflammatory Drug Start: 09-04-2010 End: 07-29-2013 ALEVE 220 MG TABS PRN NAPROXEN SODIUM [id number] Zay Bautista MD venlafaxine 75 mg oral tablet (13 sources) Serotonin and Norepinephrine Reuptake Inhibitor Start: 06-15-2015 take 1 tablet by mouth once daily in the evening VENLAFAXINE HCL 75 MG TABS One tablet by mouth every evening VENLAFAXINE HCL [id number] Zay Bautista MD vitamin d 1000 unt oral tablet (13 sources) Start: 06-15-2015 take 1 tablet by mouth once daily VITAMIN D 1000 UNIT TABS One tablet by mouth daily CHOLECALCIFEROL [id number] Zay Bautista MD Start: 06-15-2015 take 1 tablet by isela th once daily VITAMIN D 1000 UNIT TABS One tablet by mouth daily CHOLECALCIFEROL [id number] Zay Bautista MD Problems Active Problems Problem Classification Problem Date Documented Date Episodic/Chronic Cardiac dysrhythmias (13 sources) Atrial paroxysmal tachycardia; Translations: [Supraventricular tachycardia] Onset: 09-04-2010 09-04-2010 Chronic Conduction disorders (20 sources) Complete atrioventricular block; Translations: [Cardiac pacemaker in situ] Onset: 09-04-2010 09-04-2010 Chronic Disorders of lipid metabolism (13 sources) Hyperlipidemia; Translations: [Hyperlipidemia, unspecified] Onset: 09-04-2010 09-04-2010 Chronic Osteoarthritis (13 sources) Idiopathic osteoarthritis; Translations: [Primary osteoarthritis, left shoulder] Onset: 04-04-2016 04-08-2016 Chronic Unclassified (14 sources) Family history of stroke; Translations: [Other specified postprocedural states] Onset: 09-03-2017 02-14-2015 Episodic Unclassified (5 sources) Preoperative cardiovascular examination ; Translations: [Encounter for preprocedural cardiovascular examination] Onset: 05-24-2016 05-24-2016 Unclassified (1 source) Other specified postprocedural states / Z98.890(ICD-10) Onset: 09-03-2017 Unclassified (1 source) Presence of left artificial shoulder joint / Z96.612(ICD-10) Onset: 09-03-2017 Unclassified (8 sources) Long-term drug therapy; Translations: [Other cruise coordinator (current) drug therapy] Onset: 09-04-2010 09-04-2010 Past or Other Problems Problem Classification Problem Date Documented Da te Episodic/Chronic Nonspecific chest pain (13 sources) Chest pain, unspecified; Translations: [Chest pain, unspecified] Onset: 09-04-2010 09-04-2010 Episodic Other aftercare (5 sources) Other skilled nursing (current) drug therapy; Translations: [Other cruise coordinator (current) drug therapy] Onset: 09-04-2010 09-04-2010 Episodic Other and unspecified benign neoplasm (1 source) Benign neoplasm of colon; Translations: [Benign neoplasm of colon] Onset: 07-13-2008 07-13-2008 Episodic Other connective tissue disease (13 sources) Disorder of rotator cuff; Translations: [Unspecified rotator cuff tear or rupture of left shoulder, not specified as traumatic] Onset: 04-04-2016 04-04-2016 Episodic Other gastrointestinal disorders (1 source) Incontinence of feces; Translations: [Incontinence of feces] Onset: 06-27-2008 06-27-2008 Episodic Other gastrointestinal disorders (1 source) Diarrhea; Translations: [Diarrhea in adult patient] Onset: 09-30-2012 09-30-2012 Episodic Other lower respiratory disease (18 sources) Dyspnea; Translations: [Productive cough ] Onset: 06-15-2015 06-15-2015 Episodic Other lower respiratory disease (8 sources) Productive cough ; Translations: [Cough] Onset: 02-02-2016 02-02-2016 Episodic Other non-traumatic joint disorders (13 sources) Pain in left shoulder; Translations: [Pain in left shoulder] Onset: 03-27-2016 03-27-2016 Episodic Unclassified (1 source) Presence of left artificial shoulder joint; Translations: [Presence of left artificial shoulder joint] Onset: 09-03-2017 Results Test Name Value Interpretation Reference Range Facility XR SHOULDER LEFT MIN 2 VIEWS on 09-03-2017 INR Coag RelTime (Bld) EXAM: XR SHOULDER LEFT 4 VIEWS,, 09/03/2017 09:36 AMCLINICAL INDICATIONS: painRELEVANT CLINICAL HISTORY: Z98.890:Other specified postprocedural states Scap Y, Axillary, Grashey-ER, AP-IR;COMPARISON: Left shoulder radiographs 07/05/2016FINDINGS:4 images obtained.Soft Tissue: There is no significant soft tissue swelling. The visualizedportion of the left chest ICD appears intact. Atherosclerotic plaque projectsover the aortic arch.Bone: No acute osseous abnormality is identified. Joint: Total left shoulder arthroplasty appears intact and in stablealignment. The acromioclavicular joint is in anatomic alignment with stabledegenerative changes.IMPRESSION: Intact total left shoulder arthroplasty in stable alignment.Electronical ly Signed By: Toño Villalba M.D. on 09/03/2017 9:39 AM Normal [facility] Office Visit: [facility] 11-21-19 17 Documentation of current medications (procedure) Done Invalid Interpretation Code [facility] Work Phone: [phone] Fall risk assessment No Invalid Interpretation Code [facility] Work Phone: [phone] Protein mass conc Done Invalid Interpretation Code [facility] Work Phone: [phone] Lab Report: Lipid Profileon 10-15-2016 Cholesterol [Mass/Vol] 165 mg/dL Invalid Interpretation Code 200 [facility] Work Phone: [phone] Cholesterol in HDL [Mass/Vol] 58 mg/dL Invalid Interpretation Code [facility] Work Phone: [phone] Cholesterol in LDL [Mass/Vol] 83 mg/dL Invalid Interpretation Code 0-130 [facility] Work Phone: [phone] Lipoprotein.pre-beta [Mass/Vol] 24 mg/dL Invalid Interpretation Code 5-40 [facility] Work Phone: [phone] Triglyceride [Mass/Vol] 121 mg/dL Invalid Interpretation Code [facility] Work Phone: [phone] Lab Report: Liver Profileon 10-15-2016 Albumin [Mass/Vol] 3.7 g/dL Invalid Interpretation Code 3.4-5.0 [facility] Work Phone: [phone] Alkaline phosphatase (ALP) 84 U/L Invalid Interpretation Code 45-117 [facility] Work Phone: [phone] ALP (Bld) [Catalytic activity/Vol] 84 U/L Invalid Interpretation Code 45-117 [facility] Work Phone: [phone] ALT [Catalytic activity/Vol] 23 U/L Invalid Interpretation Code 12-78 [facility] Work Phone: [phone] AST [Catalytic activity/Vol] 29 U/L Invalid Interpretation Code 15-37 [facility] Work Phone: [phone] Bilirubin [Mass/Vol] 0.70 mg/dL Invalid Interpretation Code 0.20-1.00 [facility] Work Phone: [phone] Bilirubin.direct [Mass/Vol] 0.12 mg/dL Invalid Interpretation Code 0.00-0.30 [facility] Work Phone: [phone] Globulin 3.0 g/dL Invalid Interpretation Code 2.3-3.5 [facility] Work Phone: [phone] Globulin (S) [Mass/Vol] 3.0 g/dL 2.3-3.5 [facility] Work Phone: [phone] Protein [Mass/Vol] 6.7 g/dL Invalid Interpretation Code 6.4-8.2 [facility] Work Phone: [phone] Clinical Lists Update: [employer] senior mobile application developer 09-30-2016 Alanine aminotransferase (ALT) 18 U/L Invalid Interpretation Code [facility] Work Phone: [phone] Albumin 3.6 g/dL Invalid Interpretation Code [facility] Work Phone: [phone] Alkaline phosphatase (ALP) 66 U/L Invalid Interpretation Code [facility] Work Phone: [phone] Anion gap 9 mmol/L Invalid Interpretation Code [facility] Work Phone: [phone] Anion gap 4 molar conc 9 Invalid Interpretation Code [facility] Work Phone: [phone] Anion gap [Moles/Vol] 9 mmol/L [facility] Work Phone: [phone] Aspartate aminotransferase (AST) 13 U/L Low [facility] Work Phone: [phone] Bilirubin (total) 1.00 mg/dL Invalid Interpretation Code [facility] Work Phone: [phone] BUN/Creatinine Ratio 27.7 mg/mg High [facility] Work Phone: [phone] Calcium 8.8 mg/dL Invalid Interpretation Code [facility] Work Phone: [phone] Chloride 108 mmol/L High [facility] Work Phone: [phone] CO2 25.0 mmol/L Invalid Interpretation Code [facility] Work Phone: [phone] CO2 (BldV) [Partial pressure] 25.0 mmol/L Invalid Interpretation Code [facility] Work Phone: [phone] Creatinine 0.94 mg/dL Invalid Interpretation Code [facility] Work Phone: [phone] Globulin 3.2 g/dL Invalid Interpretation Code [facility] Work Phone: [phone] Globulin (S) [Mass/Vol] 3.2 g/dL [facility] Work Phone: [phone] Glucose 143 mg/dL High [facility] Work Phone: [phone] Glucose [Mass/Vol] 143 mg/dL High [facility] Work Phone: [phone] Potassium 3.9 mmol/L Invalid Interpretation Code [facility] Work Phone: [phone] Protein 6.8 g/dL Invalid Interpretation Code [facility] Work Phone: [phone] Sodium 142 mmol/L Invalid Interpretation Code [facility] Work Phone: [phone] Urea nitrogen 26 mg/dL High [facility] Work Phone: [phone] Lab Report: Lipid Profileon 09-30-2016 Cholesterol 228 mg/dL High 200 [facility] Work Phone: [phone] HDL Cholesterol 64 mg/dL Invalid Interpretation Code [facility] Work Phone: [phone] LDL Cholesterol 142 mg/dL High 0-130 [facility] Work Phone: [phone] Triglyceride 112 mg/dL Invalid Interpretation Code [facility] Work Phone: [phone] very low density lipoproteins 22 mg/dL Invalid Interpretation Code 5-40 [facility] Work Phone: [phone] Lab Report: Liver Profileon 09-30-2016 Bilirubin (direct) 0.11 mg/dL Invalid Interpretation Code 0.00-0.30 [facility] Work Phone: [phone] Globulin 3.1 g/dL Invalid Interpretation Code 2.3-3.5 [facility] Work Phone: [phone] Office Visiton 05-24-2016 Dietary management education, guidance, and counseling (procedure) yes Invalid Interpretation Code [facility] Work Phone: [phone] Documentation of current medications (procedure) Done Invalid Interpretation Code [facility] Work Phone: [phone] Protein mass conc Done [facility] Work Phone: [phone] Replaced Document: Dawood GARCIA Observationson 05-24-2016 EKG QRS axis -63 deg Invalid Interpretation Code [facility] Work Phone: [phone] electrocardiogram interpretation Electronic ventricular pacemaker Pacemaker ECG, No further analysis INSUFFICIENT DATA Invalid Interpretation Code [facility] Work Phone: [phone] GE use only - for LinkLogic import when terms are not otherwise specified 448 ms Invalid Interpretation Code [facility] Work Phone: [phone] Interpretation Electronic ventricul ar pacemaker Pacemaker ECG, No further analysis INSUFFICIENT DATA Invalid Interpretation Code [facility] Work Phone: [phone] P [place] 57 deg Invalid Interpretation Code [facility] Work Phone: [phone] P wave axis, electrocardiogram 57 deg Invalid Interpretation Code [facility] Work Phone: [phone] OH Interval 0 ms Invalid Interpretation Code [facility] Work Phone: [phone] OH interval, electrocardiogram 0 ms Invalid Interpretation Code [facility] Phone: [phone] Pulse (Heart Rate) 83 /min Invalid Interpretation Code [facility] Work Phone: [phone] QRS axis, electrocardiogram -63 deg Invalid Interpretation Code [facility] Work Phone: [phone] QRS Duration 144 ms Invalid Interpretation Code [facility] Work Phone: [phone] QRS duration, electrocardiogram 144 ms Invalid Interpretation Code [facility] Work Phone: [phone] QT Interval new path ms Invalid Interpretation Code [facility] Phone: [phone] QT interval, electrocardiogram new path ms Invalid Interpretation Code [facility] Work Phone: [phone] QTc [place] 448 ms Invalid Interpretation Code [facility] Phone: [phone] T [place] 180 deg Invalid Interpretation Code [facility] Work Phone: [phone] T wave axis, electrocardiogram 180 deg Invalid Interpretation Code [facility] Work Phone: Office Visiton 04-22-2016 Tobacco smoking status NHIS Never smoker Invalid Interpretation Code [facility] Work Phone: [phone] Tobacco use CPHS Never smoker Invalid Interpretation Code [facility] Work Phone: [phone] Clinical Lists Update: [facility] senior mobile application developer 06-20-2015 Left ventricular Ejection fraction 65 % Invalid Interpretation Code [facility] Work Phone: [phone] Lab Report: BNP,B-Type NATRI URETIC PEPTIDEon 06-15-2015 BNP 29.2 pg/mL Invalid Interpretation Code 0-100 [facility] Work Phone: [phone] Lab Report: Basic Metabolic Profile (BMP)on 06-15-2015 eGFR (non-black) 85 mL/min/{1.73_m2} Invalid Interpretation Code >60 [facility] Work Phone: [phone] eGFR (non-black) 70 mL/min/{1.73_m2} Invalid Interpretation Code >60 [facility] Work Phone: [phone] EST GFR - AA 85 mL/min Invalid Interpretation Code >60 [facility] Work Phone: [phone] Office Visiton 06-15-2015 General cardiovascular disease 10Y risk [#] [place].D'Agostino 2 % Invalid Interpretation Code [facility] Work Phone: [phone] Office Visiton 08-16-2014 cardiac risk group B Invalid Interpretation Code [facility] Work Phone: [phone] Clinical Lists Update: Pre senior mobile application developer 06-01-2013 Hematocrit (Bld) [Volume fraction] 40.0 % [facility] Work Phone: [phone] Hematocrit (HCT) 40.0 % Invalid Interpretation Code [facility] Work Phone: [phone] Hemoglobin (HGB) 13.1 g/dL Invalid Interpretation Code [facility] Work Phone: [phone] Platelets 195 10*3/mm3 Invalid Interpretation Code [facility] Work Phone: [phone] Platelets (Bld) [#/Vol] 195 10*3/mm3 [facility] Work Phone: [phone] Thyroid stimulating hormone (TSH) 1.02 u[iU]/mL Invalid Interpretation Code [facility] Work Phone: [phone] WBC (Bld) [#/Vol] 3.9 10*3/uL [facility] Work Phone: [phone] WBC (Leukocytes) 3.9 10*3/uL Invalid Interpretation Code [facility] Work Phone: [phone] Replaced Document: Dawood Reina CG Observationson 12-30-2011 Pulse (Heart Rate) 526 ms Invalid Interpretation Code [facility] Work Phone: [phone] Otheron 06-18-2005 CONVERTED FINAL DIAGNOSIS UTERUS, CURETTAGE - FRAGMENTS OF BENIGN ENDOMETRIAL/ENDOCERVIC AL POLYP. COMMENT - There is no evidence of hyperplasia or malignancy. [facility] CONVERTED ORDERING PROVIDER Ordering Provider: NEHEMIAH ANNE [facility] Thyroidon 06-18-2005 TSH Britney GUZMAN M.D., PATHOLOGIST (Electronic signature on file) Final Signed Out: 06/18/2005 13:11 [facility] Vital Signs Date Time Vital Sign Value Performing Clinician Josh fisher 11-20-2016 09:41-0400 BMI (Body Mass Index) 20.15 kg/m2 JOYCE [facility] Work Phone: 11-20-2016 09:41-0400 BP Diastolic 94 mm[Hg] JOYCE [facility] Work Phone: 11-20-2016 09:41-0400 BP Systolic 140 mm[Hg] JOYCE [facility] Work Phone: 11-20-2016 09:41-0400 Height 152.4 cm JOYCE [facility] Work Phone: 11-20-2016 09:41-0400 Pulse (Heart Rate) 76 /min JOYCE [facility] Work Phone: 11-20-2016 09:41-0400 Respiratory Rate 18 /min JOYCE [facility] Work Phone: 11-20-2016 09:41-0400 Weight 46.81 kg JOYCE [facility] Work Phone: 05-24-2016 13:19-0500 Heart rate 83 /min Zay Bautista MD [facility] Work Phone: 05-24-2016 13:00-0500 BMI (Body Mass Index) 21.48 kg/m2 Harumi [facility] Work Phone: 05-24-2016 13:00-0500 Body weight 49.9 kg Zay Bautista MD [facility] Work Phone: 05-24-2016 13:00-0500 BP Diastolic 60 mm[Hg] Harumi DeFinis [facility] Work Phone: 05-24-2016 13:00-0500 BP Systolic 112 mm[Hg] Harumi DeFinis [facility] Work Phone: 05-24-2016 13:00-0500 BSA (Body Surface Area) 1.45 m2 Harumi DeFinis [facility] Work Phone: 05-24-2016 13:00-0500 Height 152.4 cm Harumi DeFinis [facility] Work Phone: 05-24-2016 13:00-0500 Pulse (Heart Rate) 96 /min Harumi DeFinis [facility] Work Phone: 05-24-2016 13:00-0500 Pulse Oximetry 97 % Harumi DeFinis [facility] Work Phone: 05-24-2016 13:00-0500 Respiratory Rate 18 /min Harumi DeFinis [facility] Work Phone: 05-24-2016 13:00-0500 Weight 49.9 kg Harumi DeFinis [facility] Work Phone: 02-02-2016 10:35-0400 Body Temperature 97.9 [degF] Harumi DeFinis [facility] Work Phone: 06-15-2015 10:07-0500 BP Diastolic 70 mm[Hg] Harumi DeFinis [facility] Work Phone: 06-15-2015 10:07-0500 BP Systolic 92 mm[Hg] Harumi [facility] Work Phone: 06-15-2015 10:07-0500 Pulse (Heart Rate) 94 /min Harumi [facility] Work Phone: 12-30-2011 11:02-0400 Heart rate 526 ms Zay Bautista MD [facility] Work Phone: Encounters Encounter Date Encounter Type Care Provider Facility Start: 09-03-2017 Ambulatory BOSSMAN VALLADARES [facility] Start: 06-15-2005 End: 06-15-2005 Patient encounter procedure Nehemiah Anne Work Phone: [facility] Start: 06-15-2005 Results Only Nehemiah Anne Work Phone: [facility] Procedures Date Procedure Procedure Detail Performing Clinician Start: 02-19-2017 End: 02-19-2017 Program eval implantable in persn dual ld pacer Gabby Jaramillo PA-C Work Phone: Start: 11-20-2016 End: 11-20-2016 NEWSPAPER MANAGING EDITOR Gabby Jaramillo PA-C Work Phone: Start: 11-20-2016 End: 11-20-2016 Follow Up Appt 6 months Gabby roger PA-C Work Phone: Start: 11-20-2016 End: 11-20-2016 Program eval implantable in persn dual ld pacer Zay Bautista MD Start: 11-20-2016 End: 11-20-2016 NEWSPAPER MANAGING EDITOR Gabby Jaramillo PA-C Work Phone: Start: 11-20-2016 End: 11-20-2016 Follow Up Appt 6 months Gabby roger PA-C Work Phone: Start: 11-20-2016 End: 11-20-2016 Pm device progr eval, dual Zay Bautista MD Start: 08-21-2016 End: 09-30-2016 Lipid 1996 panel - Serum or Plasma Gabby Jaramillo PA-C Work Phone: Start: 08-21-2016 End: 09-30-2016 Program eval implantable in persn dual ld pacer Gabby Jaramillo PA-C Work Phone: Start: 08-21-2016 End: 09-30-2016 *Hepatic Function Panel Gabby roger PA-C Work Phone: Start: 08-21-2016 End: 09-30-2016 Lipid panel [AGGREGATE] Gabby roger PA-C Work Phone: Start: 08-15-2016 End: 11-07-2016 Follow Up Appt 3 months Nicci Carney Start: 08-15-2016 End: 11-07-2016 Pacer Clinic Zay Bautista MD Start: 08-15-2016 End: 08-15-2016 Program eval implantable in persn dual ld pacer Zay Bautista MD Start: 08-15-2016 End: 11-07-2016 Follow Up Appt 3 months Nicci Carney Start: 08-15-2016 End: 11-07-2016 Pacer Clinic Zay Bautista MD Start: 08-15-2016 End: 08-15-2016 Pm device progr eval, dual Zay Bautista MD Start: 05-24-2016 End: 05-24-2016 Ecg routine ecg w/least 12 lds w/i&r Zay Bautista MD Start: 05-24-2016 Preoperative cardiovascular examination Preoperative cardiovascular evaluation Caroline Delgado RN Start: 05-24-2016 End: 05-24-2016 Program eval implantable in persn dual ld pacer Zay Bautista MD Start: 05-24-2016 End: 05-24-2016 Dietary management education, guidance, and counseling Zay Bautista MD Start: 05-24-2016 End: 05-24-2016 Documentation of current medications Zay Bautista MD Start: 05-24-2016 End: 05-24-2016 Electrocardiogram, complete Zay Bautista MD Start: 05-24-2016 End: 05-24-2016 Follow Up Appt 6 months Nicci Carney Start: 05-24-2016 End: 05-24-2016 MMM Zay Bautista MD Start: 05-24-2016 Preoperative cardiovascular examination Preoperative cardiovascular evaluation Zay Bautista MD Start: 05-09-2016 End: 10-15-2016 Pacer Clinic Gabby Jaramillo PA-C Work Phone: Start: 05-09-2016 End: 10-15-2016 Program eval implantable in persn dual ld pacer Gabby Jaramillo PA-C Work Phone: Start: 05-09-2016 End: 10-15-2016 Follow Up Appt 3 months Gabby roger PA-C Work Phone: Start: 05-09-2016 End: 10-15-2016 Pacer Clinic Gabby Jaramillo PA-C Work Phone: Start: 05-09-2016 End: 10-15-2016 Pm device progr eval, dual Gabby Koch PA-C Work Phone: Start: 03-27-2016 End: 04-08-2016 Arthrocentesis aspir&/inj major jt/bursa w/o Dany Boudreaux Work Phone: Start: 03-27-2016 End: 04-08-2016 Drain/inject, joint/bursa Dany Boudreaux Work Phone: Start: 02-21-2016 End: 02-21-2016 *Hepatic Function Panel Gabby roger PA-C Work Phone: Start: 02-21-2016 End: 02-21-2016 Lipid 1996 panel - Serum or Plasma Gabby Jaramillo PA-C Work Phone: Start: 02-21-2016 End: 02-21-2016 *Hepatic Function Panel Gabby roger PA-C Work Phone: Start: 02-21-2016 End: 02-21-2016 Lipid panel [AGGREGATE] Gabby roger PA-C Work Phone: Start: 02-02-2016 End: 10-15-2016 Chest x-ray Manjinder Yash Jennifer EMERGENCY DEPARTMENT CLINICIAN-C Start: 02-02-2016 End: 02-02-2016 NEWSPAPER MANAGING EDITOR Manjinder Rodriguez EMERGENCY DEPARTMENT CLINICIAN-C Start: 02-02-2016 End: 02-02-2016 Follow Up Appt 6 months Manjinder Berrios Jennifer EMERGENCY DEPARTMENT CLINICIAN -C Start: 02-02-2016 End: 10-15-2016 Pacer Clinic Zay Bautista MD Start: 02-02-2016 End: 02-02-2016 Program eval implantable in persn dual ld pacer Zay Bautista MD Start: 02-02-2016 End: 10-15-2016 Chest x-ray Manjinder Yash Jennifer EMERGENCY DEPARTMENT CLINICIAN-C Start: 02-02-2016 End: 02-02-2016 NEWSPAPER MANAGING EDITOR Manjinder Rodriguez EMERGENCY DEPARTMENT CLINICIAN-C Start: 02-02-2016 End: 10-15-2016 Follow Up Appt 3 months Nicci Carney Start: 02-02-2016 End: 02-02-2016 Follow Up Appt 6 months Manjinder Berrios Jennifer EMERGENCY DEPARTMENT CLINICIAN -C Start: 02-02-2016 End: 10-15-2016 Pacer Clinic Zay Bautista MD Start: 02-02-2016 End: 02-02-2016 Pm device progr eval, dual Zay Bautista MD Start: 11-02-2015 End: 01-17-2016 Chest x-ray 4/> views Zay Bautista MD Start: 11-02-2015 End: 01-17-2016 Program eval implantable in persn dual ld pacer Zay Bautista MD Start: 11-02-2015 End: 01-17-2016 Follow Up Appt 3 months Nicci Carney Start: 11-02-2015 End: 01-17-2016 Pacer Clinic Zay Bautista MD Start: 11-02-2015 End: 01-17-2016 Pm device progr eval, dual Zay Bautista MD Start: 08-28-2015 End: 08-31-2015 Lipid 1996 panel - Serum or Plasma Gabby Jaramillo PA-C Work Phone: Start: 08-28-2015 End: 08-31-2015 Program eval implantable in persn dual ld pacer Gabby Jaramillo PA-C Work Phone: Start: 08-28-2015 End: 08-31-2015 *Hepatic Function Panel Gabby roger PA-C Work Phone: Start: 08-28-2015 End: 08-31-2015 Lipid panel [AGGREGATE] Gabby roger PA-C Work Phone: Start: 08-08-2015 End: 08-08-2015 Follow Up Appt 6 months Nicci Carney Start: 08-08-2015 End: 08-08-2015 BRANDIE Bautista MD Start: 08-08-2015 End: 08-08-2015 Follow Up Appt 6 months Nicci Carney Start: 08-08-2015 End: 08-08-2015 BRANDIE Bautista MD Start: 07-28-2015 End: 08-08-2015 Follow Up Appt 3 months Gabby roger PA-C Work Phone: Start: 07-28-2015 End: 08-08-2015 Pacer Clinic Gabby Jaramillo PA-C Work Phone: Start: 07-28-2015 End: 07-28-2015 Program eval implantable in persn dual ld pacer Gabby Jaramillo PA-C Work Phone: Start: 07-28-2015 End: 08-08-2015 Follow Up Appt 3 months Gabby roger PA-C Work Phone: Start: 07-28-2015 End: 08-08-2015 Pacer Clinic Gabby Jaramillo PA-C Work Phone: Start: 07-28-2015 End: 07-28-2015 Pm device progr eval, dual Gabby Koch PA-C Work Phone: Start: 06-15-2015 End: 06-15-2015 *LING Bautista MD Start: 06-15-2015 End: 06-20-2015 Echocardiography Zay Bautista MD Start: 06-15-2015 End: 06-15-2015 MMM Zay Bautista MD Start: 06-15-2015 End: 06-15-2015 Natriuretic peptide B [Mass/volume] in Blood Zay Bautista MD Start: 06-15-2015 End: 06-15-2015 Program eval implantable in persn dual ld pacer Zay Bautista MD Start: 06-15-2015 End: 06-15-2015 *LING Bautista MD Start: 06-15-2015 End: 06-15-2015 BNP Zay Bautista MD Start: 06-15-2015 End: 06-20-2015 Echocardiography Zay Bautista MD Start: 06-15-2015 End: 06-15-2015 Follow Up Appt 3 months Nicci Carney Start: 06-15-2015 End: 06-15-2015 MM Zay Bautista MD Start: 04-20-2015 End: 08-08-2015 Follow Up Appt 3 months Gabby roger PA-C Work Phone: Start: 04-20-2015 End: 08-08-2015 Pacer Clinic Gabby Jaramillo PA-C Work Phone: Start: 04-20-2015 End: 04-20-2015 Program eval implantable in persn dual ld pacer Gabby Jaramillo PA-C Work Phone: Start: 04-20-2015 End: 08-08-2015 Follow Up Appt 3 months Gabby roger PA-C Work Phone: Start: 04-20-2015 End: 08-08-2015 Pacer Clinic Gabby Jaramillo PA-C Work Phone: Start: 04-20-2015 End: 04-20-2015 Pm device progr eval, dual Gabby Koch PA-C Work Phone: Start: 02-24-2015 End: 02-24-2015 *Hepatic Function Panel Nicci Carney Start: 02-24-2015 End: 02-24-2015 Lipid 1996 panel - Serum or Plasma Zay Bautista MD Start: 02-24-2015 End: 02-24-2015 *Hepatic Function Panel Nicci Carney Start: 02-24-2015 End: 02-24-2015 Lipid panel [AGGREGATE] Nicci Carney Start: 02-14-2015 End: 08-08-2015 NEWSPAPER MANAGING EDITOR Gabby Jaramillo PA-C Work Phone: Start: 02-14-2015 End: 08-08-2015 Follow Up Appt 1 year Gabby hernadez PA-C Work Phone: Start: 02-14-2015 End: 02-14-2015 Program eval implantable in persn dual ld pacer Gabby Jaramillo PA-C Work Phone: Start: 02-14-2015 End: 08-08-2015 NEWSPAPER MANAGING EDITOR Gabby Jaramillo PA-C Work Phone: Start: 02-14-2015 End: 08-08-2015 Follow Up Appt 1 year Gabby hernadez PA-C Work Phone: Start: 02-14-2015 End: 02-14-2015 Follow Up Appt Other Gabby rogers PA-C Work Phone: Start: 01-12-2015 End: 02-09-2015 Follow Up Appt 3 months Nicci Carney Start: 01-12-2015 End: 02-09-2015 Pacer Clinic Zay Bautista MD Start: 01-12-2015 End: 01-12-2015 Program eval implantable in persn dual ld pacer Zay Bautista MD Start: 01-12-2015 End: 02-09-2015 Follow Up Appt 3 months Nicci Carney Start: 01-12-2015 End: 02-09-2015 Pacer Clinic Zay Bautista MD Start: 01-12-2015 End: 01-12-2015 Pm device progr eval, dual Zay Bautista MD Start: 10-05-2014 End: 02-09-2015 Pacer Clinic Zay Bautista MD Start: 10-05-2014 End: 02-09-2015 Program eval implantable in persn dual ld pacer Zay Bautista MD Start: 10-05-2014 End: 02-09-2015 Follow Up Appt 3 months Nicci Carney Start: 10-05-2014 End: 02-09-2015 Pacer Clinic Zay Bautista MD Start: 10-05-2014 End: 10-05-2014 Pm device progr eval, dual Zay Bautista MD Start: 08-16-2014 End: 08-17-2014 Documentation of current medications Zay Bautista MD Start: 08-16-2014 End: 08-16-2014 Follow Up Appt 6 months Nicci Carney Start: 08-16-2014 End: 08-16-2014 MMM Zay Bautista MD Start: 08-16-2014 End: 08-17-2014 Documentation of current medications Zay Bautista MD Start: 08-16-2014 End: 08-16-2014 Follow Up Appt 6 months Nicci Carney Start: 08-16-2014 End: 08-16-2014 MMM Zay Bautista MD Start: 08-15-2014 End: 08-29-2014 *Hepatic Function Panel Nicci Carney Start: 08-15-2014 End: 08-29-2014 Lipid 1996 panel - Serum or Plasma Zay Bautista MD Start: 08-15-2014 End: 08-29-2014 *Hepatic Function Panel Nicci Carney Start: 08-15-2014 End: 08-29-2014 Lipid panel [AGGREGATE] Nicci Carney Start: 07-05-2014 End: 02-09-2015 Follow Up Appt 3 months Nicci Carney Start: 07-05-2014 End: 02-09-2015 Pacer Clinic Zay Bautista MD Start: 07-05-2014 End: 07-05-2014 Program eval implantable in persn dual ld pacer Zay Bautista MD Start: 07-05-2014 End: 02-09-2015 Follow Up Appt 3 months Nicci Carney Start: 07-05-2014 End: 02-09-2015 Pacer Clinic Zay Bautista MD Start: 07-05-2014 End: 07-05-2014 Pm device progr eval, dual Zay Bautista MD Start: 03-30-2014 End: 02-09-2015 Follow Up Appt 3 months Nicci Carney Start: 03-30-2014 End: 02-09-2015 Program eval implantable in persn dual ld pacer Zay Bautista MD Start: 03-30-2014 End: 02-09-2015 Follow Up Appt 3 months Nicci Carney Start: 03-30-2014 End: 02-09-2015 Pacer Clinic Zay Bautista MD Start: 03-30-2014 End: 03-30-2014 Pm device progr eval, dual aZy Bautista MD Start: 02-07-2014 End: 02-15-2014 *Hepatic Function Panel Gabby roger PA-C Work Phone: Start: 02-07-2014 End: 02-07-2014 NEWSPAPER MANAGING EDITOR Gabby Jaramillo PA-C Work Phone: Start: 02-07-2014 End: 02-07-2014 Follow Up Appt 6 months Gabby roger PA-C Work Phone: Start: 02-07-2014 End: 02-15-2014 Lipid 1996 panel - Serum or Plasma Gabby Jaramillo PA-C Work Phone: Start: 02-07-2014 End: 02-15-2014 *Hepatic Function Panel Gabby roger PA-C Work Phone: Start: 02-07-2014 End: 02-07-2014 NEWSPAPER MANAGING EDITOR Gabby Jaramillo PA-C Work Phone: Start: 02-07-2014 End: 02-07-2014 Follow Up Appt 6 months Gabby roger PA-C Work Phone: Start: 02-07-2014 End: 02-15-2014 Lipid panel [AGGREGATE] Gabby roger PA-C Work Phone: Start: 12-27-2013 End: 01-27-2014 Follow Up Appt 3 months Gabby roger PA-C Work Phone: Start: 12-27-2013 End: 01-27-2014 Pacer Clinic Gabby Jaramillo PA-C Work Phone: Start: 12-27-2013 End: 12-27-2013 Program eval implantable in persn dual ld pacer Gabby Jaramillo PA-C Work Phone: Start: 12-27-2013 End: 01-27-2014 Follow Up Appt 3 months Gabby roger PA-C Work Phone: Start: 12-27-2013 End: 01-27-2014 Pacer Clinic Gabby Jaramillo PA-C Work Phone: Start: 12-27-2013 End: 12-27-2013 Pm device progr eval, dual Gabby Koch PA-C Work Phone: Start: 09-14-2013 End: 01-27-2014 Follow Up Appt 3 months Nicci Carney Start: 09-14-2013 End: 01-27-2014 Pacer Clinic Zay Bautista MD Start: 09-14-2013 End: 09-14-2013 Program eval implantable in persn dual ld pacer Zay Bautista MD Start: 09-14-2013 End: 01-27-2014 Follow Up Appt 3 months Nicci Carney Start: 09-14-2013 End: 01-27-2014 Pacer Clinic Zay Bautista MD Start: 09-14-2013 End: 09-14-2013 Pm device progr eval, dual Zay Bautista MD Start: 07-29-2013 End: 07-29-2013 Ecg routine ecg w/least 12 lds w/i&r Zay Bautista MD Start: 07-29-2013 End: 01-27-2014 Follow Up Appt 1 month Zay Bautista MD Start: 07-29-2013 End: 07-29-2013 Follow Up Appt 6 months Nicci Carney Start: 07-29-2013 End: 07-29-2013 MMM Zay Bautista MD Start: 07-29-2013 End: 01-27-2014 Pacer Clinic Zay Bautista MD Start: 07-29-2013 End: 07-29-2013 Electrocardiogram, complete Zay Bautista MD Start: 07-29-2013 End: 01-27-2014 Follow Up Appt 1 month Zay Bautista MD Start: 07-29-2013 End: 07-29-2013 Follow Up Appt 6 months Nicci Carney Start: 07-29-2013 End: 07-29-2013 MMM Zay Bautista MD Start: 07-29-2013 End: 07-29-2013 Nurse, Teaching, Wound Check (no charge) Zay Bautista MD Start: 07-29-2013 End: 01-27-2014 Pacer Clinic Zay Bautista MD Start: 07-17-2013 End: 02-07-2014 *Hepatic Function Panel Nicci Carney Start: 07-17-2013 End: 02-07-2014 Lipid 1996 panel - Serum or Plasma Zay Bautista MD Start: 07-17-2013 End: 02-07-2014 *Hepatic Function Panel Nicci Carney Start: 07-17-2013 End: 02-07-2014 Lipid panel [AGGREGATE] Nicci Carney Start: 06-11-2013 End: 06-18-2013 Follow Up Appt 1 month Gabby naranjo PA-C Work Phone: Start: 06-11-2013 End: 06-18-2013 Pacer Clinic Gabby Jaramillo PA-C Work Phone: Start: 06-11-2013 End: 06-11-2013 Program eval implantable in persn dual ld pacer Gabby Jaramillo PA-C Work Phone: Start: 06-11-2013 End: 06-18-2013 Follow Up Appt 1 month Gabby naranjo PA-C Work Phone: Start: 06-11-2013 End: 06-18-2013 Pacer Clinic Gabby Jaramillo PA-C Work Phone: Start: 06-11-2013 End: 06-11-2013 Pm device progr eval, dual Gabby Koch PA-C Work Phone: Start: 02-25-2013 End: 06-18-2013 Follow Up Appt 3 months Nicci Carney Start: 02-25-2013 End: 06-18-2013 Pacer Clinic Zay Bautista MD Start: 02-25-2013 End: 02-25-2013 Program eval implantable in persn dual ld pacer Zay Bautista MD Start: 02-25-2013 End: 06-18-2013 Follow Up Appt 3 months Nicci Carney Start: 02-25-2013 End: 06-18-2013 Pacer Clinic Zay Bautista MD Start: 02-25-2013 End: 02-25-2013 Pm device progr eval, dual Zay Bautista MD Start: 12-28-2012 End: 01-28-2013 *Hepatic Function Panel Nicci Carney Start: 12-28-2012 End: 12-28-2012 Follow Up Appt 6 months Nicci Carney Start: 12-28-2012 End: 06-18-2013 Lipid 1996 panel - Serum or Plasma Zay Bautista MD Start: 12-28-2012 End: 12-28-2012 Program eval implantable in persn dual ld pacer Zay Bautista MD Start: 12-28-2012 End: 01-28-2013 *Hepatic Function Panel Nicci Carney Start: 12-28-2012 End: 12-28-2012 Follow Up Appt 6 months Nicci Carney Start: 12-28-2012 End: 06-18-2013 Lipid panel [AGGREGATE] Nicci Carney Start: 12-28-2012 End: 12-28-2012 MMM Zay Bautista MD Start: 11-12-2012 End: 06-18-2013 Follow Up Appt 3 months Nicci Carney Start: 11-12-2012 End: 06-18-2013 Pacer Clinic Zay Bautista MD Start: 11-12-2012 End: 11-12-2012 Program eval implantable in persn dual ld pacer Zay Bautista MD Start: 11-12-2012 End: 06-18-2013 Follow Up Appt 3 months Nicci Carney Start: 11-12-2012 End: 06-18-2013 Pacer Clinic Zay Bautista MD Start: 11-12-2012 End: 11-12-2012 Pm device progr eval, dual Zay Bautista MD Start: 08-17-2012 End: 06-18-2013 Lipid 1996 panel - Serum or Plasma Bg Ohara MD Start: 08-17-2012 End: 06-18-2013 Program eval implantable in persn dual ld pacer Bg Ohara MD Start: 08-17-2012 End: 06-18-2013 *Hepatic Function Panel Bg Ohara MD Start: 08-17-2012 End: 06-18-2013 Lipid panel [AGGREGATE] Bg Ohara MD Start: 08-13-2012 End: 06-18-2013 Follow Up Appt 3 months Nicci Carney Start: 08-13-2012 End: 06-18-2013 Pacer Clinic Zay Bautista MD Start: 08-13-2012 End: 08-13-2012 Program eval implantable in persn dual ld pacer Zay Bautista MD Start: 08-13-2012 End: 06-18-2013 Follow Up Appt 3 months Nicci Carney Start: 08-13-2012 End: 06-18-2013 Pacer Clinic Zay Buatista MD Start: 08-13-2012 End: 08-13-2012 Pm device progr eval, dual Zay Bautista MD Start: 03-04-2012 End: 03-19-2012 *Hepatic Function Panel Bg Ohara MD Start: 03-04-2012 End: 03-19-2012 Lipid 1996 panel - Serum or Plasma Bg Ohara MD Start: 03-04-2012 End: 03-19-2012 *Hepatic Function Panel Bg Ohara MD Start: 03-04-2012 End: 03-19-2012 Lipid panel [AGGREGATE] Bg Ohara MD Start: 03-02-2012 End: 03-19-2012 *Hepatic Function Panel Bg Ohara MD Start: 03-02-2012 End: 03-19-2012 Lipid 1996 panel - Serum or Plasma Bg Ohara MD Start: 03-02-2012 End: 03-19-2012 *Hepatic Function Panel Bg Ohara MD Start: 03-02-2012 End: 03-19-2012 Lipid panel [AGGREGATE] Bg Ohara MD Start: 12-30-2011 End: 12-30-2011 Follow Up Appt 1 year Bg Ohara MD Start: 12-30-2011 End: 12-30-2011 Follow Up Appt 1 year Bg Ohara MD Start: 08-21-2011 End: 08-29-2011 *Hepatic Function Panel Bg Ohara MD Start: 08-21-2011 End: 08-29-2011 Lipid 1996 panel - Serum or Plasma Bg Ohara MD Start: 08-21-2011 End: 08-29-2011 *Hepatic Function Panel Bg Ohara MD Start: 08-21-2011 End: 08-29-2011 Lipid panel [AGGREGATE] Bg Ohara MD Start: 06-17-2011 End: 06-17-2011 Follow Up Appt 6 months Bg Ohara MD Start: 06-17-2011 End: 06-17-2011 Follow Up Appt 6 months Bg Ohara MD Start: 06-15-2005 CONVERTED SURGICAL PATHOLOGY Nehemiah Anne Work Phone: Plan of Treatment Date Care Activity Detail Author Start: 01-18-2020 Influenza vaccination INFLUENZA (#1) [facility] Start: 06-03-2017 End: 06-03-2017 Appointment Appointment [facility] Work Phone: Start: 04-17-2017 End: 10-25-2016 *Hepatic Function Panel *Hepatic Function Panel [facility] Work Phone: Start: 04-17-2017 End: 10-25-2016 Lipid 1996 panel *Lipid Profile CC PCP [facility] Work Phone: Start: 04-17-2017 End: 10-25-2016 *Hepatic Function Panel *Hepatic Function Panel [facility] Work Phone: Start: 04-17-2017 End: 10-25-2016 Lipid panel [AGGREGATE] *Lipid Profile CC PCP [facility] Work Phone: Start: 02-19-2017 End: 02-19-2017 Follow Up Appt 3 months Follow Up Appt 3 months [facility] Work Phone: Start: 02-19-2017 End: 02-19-2017 Pacer Clinic [facility] Work Phone: Start: 02-19-2017 End: 02-19-2017 Appointment Appointment [facility] Work Phone: Start: 01-01-2017 End: 10-11-2016 *Hepatic Function Panel *Hepatic Function Panel [facility] Work Phone: Start: 01-01-2017 End: 10-11-2016 Lipid panel [AGGREGATE] *Lipid Profile CC PCP [facility] Work Phone: Start: 11-20-2016 End: 11-20-2016 NEWSPAPER MANAGING EDITOR NEWSPAPER MANAGING EDITOR [facility] Work Phone: Start: 11-20-2016 End: 11-20-2016 Follow Up Appt 3 months Follow Up Appt 3 months [facility] Work Phone: Start: 11-20-2016 End: 11-20-2016 Follow Up Appt 6 months Follow Up Appt 6 months [facility] Work Phone: Start: 11-20-2016 End: 11-20-2016 Pacer Clinic [facility] Work Phone: Start: 11-20-2016 End: 11-20-2016 Appointment Appointment [facility] Work Phone: Start: 11-20-2016 End: 11-20-2016 Appointment Appointment [facility] Work Phone: Start: 11-20-2016 End: 11-20-2016 NEWSPAPER MANAGING EDITOR NEWSPAPER MANAGING EDITOR [facility] Work Phone: Start: 11-20-2016 End: 11-20-2016 Follow Up Appt 3 months Follow Up Appt 3 months [facility] Work Phone: Start: 11-20-2016 End: 11-20-2016 Follow Up Appt 6 months Follow Up Appt 6 months [facility] Work Phone: Start: 11-20-2016 End: 11-20-2016 Pacer Clinic Pacer Clinic [facility] Work Phone: Start: 08-21-2016 End: 09-30-2016 *Hepatic Function Panel *Hepatic Function Panel [facility] Work Phone: Start: 08-21-2016 End: 09-30-2016 Lipid 1996 panel *Lipid Profile CC PCP [facility] Work Phone: Start: 08-21-2016 End: 09-30-2016 *Hepatic Function Panel *Hepatic Function Panel [facility] Work Phone: Start: 08-21-2016 End: 09-30-2016 Lipid panel [AGGREGATE] *Lipid Profile CC PCP [facility] Work Phone: Start: 08-15-2016 End: 11-07-2016 Follow Up Appt 3 months Follow Up Appt 3 months [facility] Work Phone: Start: 08-15-2016 End: 11-07-2016 Pacer Clinic Pacer Clinic [facility] Work Phone: Start: 08-15-2016 End: 11-07-2016 Follow Up Appt 3 months Follow Up Appt 3 months [facility] Work Phone: Start: 08-15-2016 End: 11-07-2016 Pacer Clinic Pac[facility] Clinic [facility] Work Phone: Start: 05-24-2016 End: 05-24-2016 Ecg routine ecg w/least 12 lds w/i&r EKG (In office) [facility] Work Phone: Start: 05-24-2016 End: 05-24-2016 Follow Up Appt 6 months Follow Up Appt 6 months [facility] Work Phone: Start: 05-24-2016 End: 05-24-2016 MMM MMM [facility] Work Phone: Start: 05-24-2016 End: 05-24-2016 Electrocardiogram, complete EKG (In office) [facility] Work Phone: Start: 05-24-2016 End: 05-24-2016 Follow Up Appt 6 months Follow Up Appt 6 months [facility] Work Phone: Start: 05-24-2016 End: 05-24-2016 MMM MMM [facility] Work Phone: Start: 05-09-2016 End: 10-15-2016 Follow Up Appt 3 months Follow Up Appt 3 months [facility] Work Phone: Start: 05-09-2016 End: 10-15-2016 Pacer Clinic Pacer Clinic [facility] Work Phone: Start: 05-09-2016 End: 10-15-2016 Follow Up Appt 3 months Follow Up Appt 3 months [facility] Work Phone: Start: 05-09-2016 End: 10-15-2016 Pacer Clinic Pacer Clinic [facility] Work Phone: Start: 04-04-2016 End: 04-04-2016 Ct upper extremity w/contrast material CT Upper Extremity with Contrast [facility] Work Phone: Start: 04-04-2016 End: 04-04-2016 Ct upper extremity w/dye CT Upper Extremity with Contrast [facility] Work Phone: Start: 03-27-2016 End: 03-27-2016 Radex shoulder complete minimum 2 views X-Ray, Shoulder [facility] Work Phone: Start: 03-27-2016 End: 03-27-2016 X-ray exam of shoulder X-Ray, Shoulder [facility] Work Phone: Start: 03-01-2016 End: 02-21-2016 *Hepatic Function Panel *Hepatic Function Panel [facility] Work Phone: Start: 03-01-2016 End: 02-21-2016 Lipid 1996 panel *Lipid Profile CC PCP [facility] Work Phone: Start: 03-01-2016 End: 02-21-2016 *Hepatic Function Panel *Hepatic Function Panel [facility] Work Phone: Start: 03-01-2016 End: 02-21-2016 Lipid panel [AGGREGATE] *Lipid Profile CC PCP [facility] Work Phone: Start: 02-02-2016 End: 10-15-2016 Chest x-ray X-Ray, Chest, PA & Lateral [facility] Work Phone: Start: 02-02-2016 End: 02-02-2016 NEWSPAPER MANAGING EDITOR NEWSPAPER MANAGING EDITOR [facility] Work Phone: Start: 02-02-2016 End: 10-15-2016 Follow Up Appt 3 months Follow Up Appt 3 months [facility] Work Phone: Start: 02-02-2016 End: 02-02-2016 Follow Up Appt 6 months Follow Up Appt 6 months [facility] Work Phone: Start: 02-02-2016 End: 10-15-2016 Pacer Clinic Pacer Clinic [facility] Work Phone: Start: 02-02-2016 End: 10-15-2016 Chest x-ray X-Ray, Chest, PA & Lateral [facility] Work Phone: Start: 02-02-2016 End: 02-02-2016 NEWSPAPER MANAGING EDITOR NEWSPAPER MANAGING EDITOR [facility] Work Phone: Start: 02-02-2016 End: 10-15-2016 Follow Up Appt 3 months Follow Up Appt 3 months [facility] Work Phone: Start: 02-02-2016 End: 02-02-2016 Follow Up Appt 6 months Follow Up Appt 6 months [facility] Work Phone: Start: 02-02-2016 End: 10-15-2016 Pacer Clinic Pacer Clinic [facility] Work Phone: Start: 11-02-2015 End: 01-17-2016 Follow Up Appt 3 months Follow Up Appt 3 months [facility] Work Phone: Start: 11-02-2015 End: 01-17-2016 Pacer Clinic Pacer Clinic [facility] Work Phone: Start: 11-02-2015 End: 01-17-2016 Follow Up Appt 3 months Follow Up Appt 3 months [facility] Work Phone: Start: 11-02-2015 End: 01-17-2016 Pacer Clinic Pac[facility] Clinic [facility] Work Phone: Start: 08-28-2015 End: 08-31-2015 *Hepatic Function Panel *Hepatic Function Panel [facility] Work Phone: Start: 08-28-2015 End: 08-31-2015 Lipid 1996 panel *Lipid Profile CC PCP [facility] Work Phone: Start: 08-28-2015 End: 08-31-2015 *Hepatic Function Panel *Hepatic Function Panel [facility] Work Phone: Start: 08-28-2015 End: 08-31-2015 Lipid panel [AGGREGATE] *Lipid Profile CC PCP [facility] Work Phone: Start: 08-08-2015 End: 08-08-2015 Follow Up Appt 6 months Follow Up Appt 6 months [facility] Work Phone: Start: 08-08-2015 End: 08-08-2015 MMM MMM [facility] Work Phone: Start: 08-08-2015 End: 08-08-2015 Follow Up Appt 6 months Follow Up Appt 6 months [facility] Work Phone: Start: 08-08-2015 End: 08-08-2015 MMM MMM [facility] Work Phone: Start: 07-28-2015 End: 08-08-2015 Follow Up Appt 3 months Follow Up Appt 3 months [facility] Work Phone: Start: 07-28-2015 End: 08-08-2015 Pacer Clinic Pacer Clinic [facility] Work Phone: Start: 07-28-2015 End: 08-08-2015 Follow Up Appt 3 months Follow Up Appt 3 months [facility] Work Phone: Start: 07-28-2015 End: 08-08-2015 Pacer Clinic Pacer Clinic [facility] Work Phone: Start: 06-15-2015 End: 06-15-2015 *BMP *BMP [facility] Work Phone: Start: 06-15-2015 End: 06-15-2015 Echocardiography Echocardiogram (complete) [facility] Work Phone: Start: 06-15-2015 End: 06-15-2015 Follow Up Appt 3 months Follow Up Appt 3 months [facility] Work Phone: Start: 06-15-2015 End: 06-15-2015 MMM MMM [facility] Work Phone: Start: 06-15-2015 End: 06-15-2015 Natriuretic peptide B mass conc (Bld) *Brain Natriuretic Peptide BNP [facility] Work Phone: Start: 06-15-2015 End: 06-15-2015 *BMP *BMP [facility] Work Phone: Start: 06-15-2015 End: 06-15-2015 BNP *Brain Natriuretic Peptide BNP [facility] Work Phone: Start: 06-15-2015 End: 06-15-2015 Echocardiography Echocardiogram (complete) [facility] Work Phone: Start: 06-15-2015 End: 06-15-2015 Follow Up Appt 3 months Follow Up Appt 3 months [facility] Work Phone: Start: 06-15-2015 End: 06-15-2015 MMM MMM [facility] Work Phone: Start: 04-20-2015 End: 08-08-2015 Follow Up Appt 3 months Follow Up Appt 3 months [facility] Work Phone: Start: 04-20-2015 End: 08-08-2015 Pacer Clinic Pacer Clinic [facility] Work Phone: Start: 04-20-2015 End: 08-08-2015 Follow Up Appt 3 months Follow Up Appt 3 months [facility] Work Phone: Start: 04-20-2015 End: 08-08-2015 Pacer Clinic Pac[facility] Work Phone: Start: 02-24-2015 End: 02-24-2015 *Hepatic Function Panel *Hepatic Function Panel [facility] Work Phone: Start: 02-24-2015 End: 02-24-2015 Lipid 1996 panel *Lipid Profile CC PCP [facility] Work Phone: Start: 02-24-2015 End: 02-24-2015 *Hepatic Function Panel *Hepatic Function Panel [facility] Work Phone: Start: 02-24-2015 End: 02-24-2015 Lipid panel [AGGREGATE] *Lipid Profile CC PCP [facility] Work Phone: Start: 02-14-2015 End: 08-08-2015 NEWSPAPER MANAGING EDITOR NEWSPAPER MANAGING EDITOR [facility] Work Phone: Start: 02-14-2015 End: 02-14-2015 Follow Up Appt 1 year Follow Up Appt 1 year [facility] Work Phone: Start: 02-14-2015 End: 02-14-2015 Follow Up Appt Other Follow Up Appt Other [facility] Work Phone: Start: 02-14-2015 End: 08-08-2015 NEWSPAPER MANAGING EDITOR NEWSPAPER MANAGING EDITOR [facility] Work Phone: Start: 02-14-2015 End: 02-14-2015 Follow Up Appt 1 year Follow Up Appt 1 year [facility] Work Phone: Start: 02-14-2015 End: 02-14-2015 Follow Up Appt Other Follow Up Appt Other [facility] Work Phone: Start: 01-12-2015 End: 02-09-2015 Follow Up Appt 3 months Follow Up Appt 3 months [facility] Work Phone: Start: 01-12-2015 End: 02-09-2015 Pacer Clinic Pacer Clinic [facility] Work Phone: Start: 01-12-2015 End: 02-09-2015 Follow Up Appt 3 months Follow Up Appt 3 months [facility] Work Phone: Start: 01-12-2015 End: 02-09-2015 Pacer Clinic Pacer Clinic [facility] Work Phone: Start: 10-05-2014 End: 02-09-2015 Follow Up Appt 3 months Follow Up Appt 3 months [facility] Work Phone: Start: 10-05-2014 End: 02-09-2015 Pacer Clinic [facility] Work Phone: Start: 10-05-2014 End: 02-09-2015 Follow Up Appt 3 months Follow Up Appt 3 months [facility] Work Phone: Start: 10-05-2014 End: 02-09-2015 Pacer Clinic Pacer Clinic [facility] Work Phone: Start: 08-16-2014 End: 08-16-2014 Follow Up Appt 6 months Follow Up Appt 6 months [facility] Work Phone: Start: 08-16-2014 End: 08-16-2014 MMM MMM [facility] Work Phone: Start: 08-16-2014 End: 08-16-2014 Follow Up Appt 6 months Follow Up Appt 6 months [facility] Work Phone: Start: 08-16-2014 End: 08-16-2014 MMM MMM [facility] Work Phone: Start: 08-15-2014 End: 08-29-2014 *Hepatic Function Panel *Hepatic Function Panel [facility] Work Phone: Start: 08-15-2014 End: 08-29-2014 Lipid 1996 panel *Lipid Profile CC PCP [facility] Work Phone: Start: 08-15-2014 End: 08-29-2014 *Hepatic Function Panel *Hepatic Function Panel [facility] Work Phone: Start: 08-15-2014 End: 08-29-2014 Lipid panel [AGGREGATE] *Lipid Profile CC PCP [facility] Work Phone: Start: 07-05-2014 End: 02-09-2015 Follow Up Appt 3 months Follow Up Appt 3 months [facility] Work Phone: Start: 07-05-2014 End: 02-09-2015 Pacer Clinic [facility] Clinic [facility] Work Phone: Start: 07-05-2014 End: 02-09-2015 Follow Up Appt 3 months Follow Up Appt 3 months [facility] Work Phone: Start: 07-05-2014 End: 02-09-2015 Pacer Clinic [facility] Work Phone: Start: 03-30-2014 End: 02-09-2015 Follow Up Appt 3 months Follow Up Appt 3 months [facility] Work Phone: Start: 03-30-2014 End: 02-09-2015 Pacer Clinic Pacer Clinic [facility] Work Phone: Start: 03-30-2014 End: 02-09-2015 Follow Up Appt 3 months Follow Up Appt 3 months [facility] Work Phone: Start: 03-30-2014 End: 02-09-2015 Pacer Clinic [facility] Work Phone: Start: 02-07-2014 End: 02-15-2014 *Hepatic Function Panel *Hepatic Function Panel [facility] Work Phone: Start: 02-07-2014 End: 02-07-2014 NEWSPAPER MANAGING EDITOR NEWSPAPER MANAGING EDITOR [facility] Work Phone: Start: 02-07-2014 End: 02-07-2014 Follow Up Appt 6 months Follow Up Appt 6 months [facility] Work Phone: Start: 02-07-2014 End: 02-15-2014 Lipid 1996 panel *Lipid Profile CC PCP [facility] Work Phone: Start: 02-07-2014 End: 02-15-2014 *Hepatic Function Panel *Hepatic Function Panel [facility] Work Phone: Start: 02-07-2014 End: 02-07-2014 NEWSPAPER MANAGING EDITOR NEWSPAPER MANAGING EDITOR [facility] Work Phone: Start: 02-07-2014 End: 02-07-2014 Follow Up Appt 6 months Follow Up Appt 6 months [facility] Work Phone: Start: 02-07-2014 End: 02-15-2014 Lipid panel [AGGREGATE] *Lipid Profile CC PCP [facility] Work Phone: Start: 12-27-2013 End: 01-27-2014 Follow Up Appt 3 months Follow Up Appt 3 months [facility] Work Phone: Start: 12-27-2013 End: 01-27-2014 Pacer Clinic Pacer Clinic [facility] Work Phone: Start: 12-27-2013 End: 01-27-2014 Follow Up Appt 3 months Follow Up Appt 3 months [facility] Work Phone: Start: 12-27-2013 End: 01-27-2014 Pacer Clinic [facility] Work Phone: Start: 09-14-2013 End: 01-27-2014 Follow Up Appt 3 months Follow Up Appt 3 months [facility] Work Phone: Start: 09-14-2013 End: 01-27-2014 Pacer Clinic [facility] Work Phone: Start: 09-14-2013 End: 01-27-2014 Follow Up Appt 3 months Follow Up Appt 3 months [facility] Work Phone: Start: 09-14-2013 End: 01-27-2014 Pacer Clinic Pac[facility] Clinic [facility] Work Phone: Start: 07-29-2013 End: 07-29-2013 Ecg routine ecg w/least 12 lds w/i&r EKG (In office) [facility] Work Phone: Start: 07-29-2013 End: 01-27-2014 Follow Up Appt 1 month Follow Up Appt 1 month [facility] Work Phone: Start: 07-29-2013 End: 07-29-2013 Follow Up Appt 6 months Follow Up Appt 6 months [facility] Work Phone: Start: 07-29-2013 End: 07-29-2013 MMM MMM [facility] Work Phone: Start: 07-29-2013 End: 01-27-2014 Pacer Clinic Pacer Clinic [facility] Work Phone: Start: 07-29-2013 End: 07-29-2013 Electrocardiogram, complete EKG (In office) [facility] Work Phone: Start: 07-29-2013 End: 01-27-2014 Follow Up Appt 1 month Follow Up Appt 1 month [facility] Work Phone: Start: 07-29-2013 End: 07-29-2013 Follow Up Appt 6 months Follow Up Appt 6 months [facility] Work Phone: Start: 07-29-2013 End: 07-29-2013 MMM MMM [facility] Work Phone: Start: 07-29-2013 End: 01-27-2014 Pacer Clinic Pacer Clinic [facility] Work Phone: Start: 07-17-2013 End: 02-07-2014 *Hepatic Function Panel *Hepatic Function Panel [facility] Work Phone: Start: 07-17-2013 End: 02-07-2014 Lipid 1996 panel *Lipid Profile CC PCP [facility] Work Phone: Start: 07-17-2013 End: 02-07-2014 *Hepatic Function Panel *Hepatic Function Panel [facility] Work Phone: Start: 07-17-2013 End: 02-07-2014 Lipid panel [AGGREGATE] *Lipid Profile CC PCP [facility] Work Phone: Start: 06-11-2013 End: 06-18-2013 Follow Up Appt 1 month Follow Up Appt 1 month [facility] Work Phone: Start: 06-11-2013 End: 06-18-2013 Pacer Clinic Pacer Clinic [facility] Work Phone: Start: 06-11-2013 End: 06-18-2013 Follow Up Appt 1 month Follow Up Appt 1 month [facility] Work Phone: Start: 06-11-2013 End: 06-18-2013 Pacer Clinic Pacer Clinic [facility] Work Phone: Start: 02-25-2013 End: 06-18-2013 Follow Up Appt 3 months Follow Up Appt 3 months [facility] Work Phone: Start: 02-25-2013 End: 06-18-2013 Pacer Clinic Pacer Clinic [facility] Work Phone: Start: 02-25-2013 End: 06-18-2013 Follow Up Appt 3 months Follow Up Appt 3 months [facility] Work Phone: Start: 02-25-2013 End: 06-18-2013 Pacer Clinic Pac[facility] Clinic [facility] Work Phone: Start: 12-28-2012 End: 01-28-2013 *Hepatic Function Panel *Hepatic Function Panel [facility] Work Phone: Start: 12-28-2012 End: 12-28-2012 Follow Up Appt 6 months Follow Up Appt 6 months [facility] Work Phone: Start: 12-28-2012 End: 06-18-2013 Lipid 1996 panel *Lipid Profile CC PCP [facility] Work Phone: Start: 12-28-2012 End: 12-28-2012 MMM MMM [facility] Work Phone: Start: 12-28-2012 End: 01-28-2013 *Hepatic Function Panel *Hepatic Function Panel [facility] Work Phone: Start: 12-28-2012 End: 12-28-2012 Follow Up Appt 6 months Follow Up Appt 6 months [facility] Work Phone: Start: 12-28-2012 End: 06-18-2013 Lipid panel [AGGREGATE] *Lipid Profile CC PCP [facility] Work Phone: Start: 12-28-2012 End: 12-28-2012 MMM MMM [facility] Work Phone: Start: 11-12-2012 End: 06-18-2013 Follow Up Appt 3 months Follow Up Appt 3 months [facility] Work Phone: Start: 11-12-2012 End: 06-18-2013 Pacer Clinic Pacer Clinic [facility] Work Phone: Start: 11-12-2012 End: 06-18-2013 Follow Up Appt 3 months Follow Up Appt 3 months [facility] Work Phone: Start: 11-12-2012 End: 06-18-2013 Pacer Clinic Pacer Clinic [facility] Work Phone: Start: 08-17-2012 End: 06-18-2013 *Hepatic Function Panel *Hepatic Function Panel [facility] Work Phone: Start: 08-17-2012 End: 06-18-2013 Lipid 1996 panel *Lipid Profile [facility] Work Phone: Start: 08-17-2012 End: 06-18-2013 *Hepatic Function Panel *Hepatic Function Panel [facility] Work Phone: Start: 08-17-2012 End: 06-18-2013 Lipid panel [AGGREGATE] *Lipid Profile [facility] Work Phone: Start: 08-13-2012 End: 06-18-2013 Follow Up Appt 3 months Follow Up Appt 3 months [facility] Work Phone: Start: 08-13-2012 End: 06-18-2013 Pacer Clinic Pacer Clinic [facility] Work Phone: Start: 08-13-2012 End: 06-18-2013 Follow Up Appt 3 months Follow Up Appt 3 months [facility] Work Phone: Start: 08-13-2012 End: 06-18-2013 Pacer Clinic Pacer Clinic [facility] Work Phone: Start: 03-04-2012 End: 03-19-2012 *Hepatic Function Panel *Hepatic Function Panel [facility] Work Phone: Start: 03-04-2012 End: 03-19-2012 Lipid 1996 panel *Lipid Profile [facility] Work Phone: Start: 03-04-2012 End: 03-19-2012 *Hepatic Function Panel *Hepatic Function Panel [facility] Work Phone: Start: 03-04-2012 End: 03-19-2012 Lipid panel [AGGREGATE] *Lipid Profile [facility] Work Phone: Start: 03-02-2012 End: 03-19-2012 *Hepatic Function Panel *Hepatic Function Panel [facility] Work Phone: Start: 03-02-2012 End: 03-19-2012 Lipid 1996 panel *Lipid Profile [facility] Work Phone: Start: 03-02-2012 End: 03-19-2012 *Hepatic Function Panel *Hepatic Function Panel [facility] Work Phone: Start: 03-02-2012 End: 03-19-2012 Lipid panel [AGGREGATE] *Lipid Profile [facility] Work Phone: Start: 12-30-2011 End: 12-30-2011 Follow Up Appt 1 year Follow Up Appt 1 year [facility] Work Phone: Start: 12-30-2011 End: 12-30-2011 Follow Up Appt 1 year Follow Up Appt 1 year [facility] Work Phone: Start: 08-21-2011 End: 08-29-2011 *Hepatic Function Panel *Hepatic Function Panel [facility] Work Phone: Start: 08-21-2011 End: 08-29-2011 Lipid 1996 panel *Lipid Profile [facility] Work Phone: Start: 08-21-2011 End: 08-29-2011 *Hepatic Function Panel *Hepatic Function Panel [facility] Work Phone: Start: 08-21-2011 End: 08-29-2011 Lipid panel [AGGREGATE] *Lipid Profile [facility] Work Phone: Start: 06-17-2011 End: 06-17-2011 Follow Up Appt 6 months Follow Up Appt 6 months [facility] Work Phone: Start: 06-17-2011 End: 06-17-2011 Follow Up Appt 6 months Follow Up Appt 6 months [facility] Work Phone: Start: 2002 ADVANCE DIRECTIVE DISCUSSION ADVANCE DIRECTIVE DISCUSSION [facility] Start: 2002 BONE DENSITY BONE DENSITY [facility] Start: 2002 PNEUMOVAX AGE 65 AND OVER WITH 5YR LOOKBACK (#1) PNEUMOVAX AGE 65 AND OVER WITH 5YR LOOKBACK (#1) [facility] Start: 11-15-1987 SHINGRIX VACCINE (1 of 2) SHINGRIX VACCINE (1 of 2) [facility] Start: 1982 DIABETES SCREEN DIABETES SCREEN [facility] Start: 1956 Urine microalbumin profile DTAP,TDAP,TD (1 - Tdap) [facility] Patient Education [facility] Work Phone: Payers Date Payer Category Payer Medicare [id number] Social History Date Type Detail Facility Tobacco smoking status NHIS Unknown if ev er smoked [facility] Sex Assigned At Not on file [facility] Summary Purpose Family History No Family History Records Found Advance Directives No Advanced Directives Records Found Additional Source Comments INFORMATION SOURCE (unrecogn ized section and content) DATE CREATED AUTHOR 11/06/2017 [facility] Source Comments (unrecognize d section and content) In the event this informatio n is protected by the Federal Confidentiality of Alcohol and Drug Abuse Patient Records regulations: The Federal rules restrict any use of the information to criminally investigate or prosecute any alcohol or drug abuse patient.[facility] FOR RECORDS PERTAINING TO PATIENTS WHO ARE OR HAVE BEEN ENROLLED IN A CHEMICAL DEPENDENCY/SUBSTANCEABUSE PROGRAM, SOME INFORMATION MAY BE OMITTED. This clinical summary was aggregated from multiple sources. Caution should be exercised in using it in the provision of clinical care. This summary normalizes information from multiple sources, and as a consequence, information in this document may materially change the coding, format and clinical context of patient data. In addition, data may be omitted in some cases. CLINICAL DECISIONS SHOULD BE BASED ON THE PRIMARY CLINICAL RECORDS. [facility]. provides no warranty or guarantee of the accuracy or completeness of information in this document.
[2024-03-12] MEDS: Potassium Chloride Oral Tablet 20 MEQ 40 MEQ PO (17:52)
[2024-03-12 18:14] VITALS: BP 119/69; PULSE 71; RESP 16; O2SAT 98
[2024-03-12 18:44] LABS: Mucous, Urine 0 SEEN /hpf (<or=2+)
[2024-03-12 18:45] LABS: Color, Urine Yellow (Yellow); Glucose, Dipstick Normal (Normal); Ketone-Dipstick 5 mg/dl (Negative); Leukocyte Esterase-Dipstick 500 /ul (Negative); Nitrite-Dipstick Positive (Negative); Occult Blood-Urine 25 /ul (Negative); Protein-Dipstick 30 mg/dl (Negative); Urine Bilirubin Dipstick Negative (Negative); Urine Clarity Cloudy (Clear); Urine Urobilinogen 1 mg/dl (Normal)
[2024-03-12 18:52] LABS: Bacteria 4+ /hpf (None Seen); White Blood Cells 25-50 SEEN /hpf (0-5)
[2024-03-12 18:53] LABS: Red Blood Cells-Urine 0-5 SEEN /hpf (0-5); Renal Epithelial Cells 0-5 SEEN /hpf (0-5); Squamous Epithelial Cells - UA 5-10 SEEN /hpf (5-10); Transitional Epithelial - Ur 0-5 SEEN /hpf (0-5)
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
[2024-03-12] MEDS: Nitrofurantoin Macrocrystals 100 MG Capsule PO (19:26)
[2024-03-12 19:36] VITALS: BP 161/107; PULSE 74; RESP 22; TEMP 36.6; O2SAT 96
[2024-03-12] MEDS: LORazepam 0.5 MG Tablet PO (19:37)
== END 2024-03-12 19:41 | disposition home or self-care (01) ==
PROVIDERS: Emergency Provider Emergency Medicine; PCP Family Medicine; Visit Provider Emergency Medicine
DX: N39.0 Urinary tract infection, site not specified (principal); F03.90 Unspecified dementia, unspecified severity, without behavioral disturbance, psychotic disturbance, mood disturbance, and anxiety; I10 Essential (primary) hypertension; E78.5 Hyperlipidemia, unspecified; E87.6 Hypokalemia; R51.9 Headache, unspecified; Z95.0 Presence of cardiac pacemaker; Z79.82 Long term (current) use of aspirin; V49.88XA Car occupant (driver) (passenger) injured in other specified transport accidents, initial encounter
CPT/HCPCS: 70450; 80048; 81001; 85025; 87086; 87088; 87186; 99283

== ENCOUNTER 2024-06-14 18:10 | Inpatient (IN) | payer MEDICARE, SELFPAY ==
[2024-06-14] VITALS (7 sets, daily range): BP systolic 158–178; BP diastolic 96–105; PULSE 94–104; RESP 12–20; TEMP 36.3–37.1; O2SAT 93–99; BMI 21.0; BMI 21.1
--- NOTE | 2024-06-14 18:25 | EKG12_ITS ---
Test Reason : FALL Blood Pressure : */* mmHG Vent. Rate : 86 BPM Atrial Rate : 86 BPM P-R Int : 158 ms QRS Dur : 154 ms QT Int : 450 ms P-R-T Axes : 68 -57 105 degrees QTcB Int : 538 ms Atrial-sensed ventricular-paced rhythm Abnormal ECG Confirmed by BART REDD, REYES ([id number]), city editor FOREST BROWN ([id number]) on 06/16/2024 6:25:16 AM Referred By: PAUL Confirmed By: REYES ARRIAGA MD
--- NOTE | 2024-06-14 18:29 | EDS_ITS ---
HPI History of Present Illness Chief Complaint: Lower Extremity Injury Informant: patient and family Narrative Narrative: Presents by EMS spouse and daughter present mechanical fall walking the driveway. Patient tripped on the lip of the entrance of the garage falling on her left side. She did not hit her head did not lose conscious. No head or neck pain. Reports pain left hip and left shoulder. She had a previous left shoulder replacement at [facility] in 2019. She ambulates with a cane if needed. No lower extremity surgeries in the past. Does not follow an orthopedist. She does have a pacemaker history of complete heart block pacemaker placed in 2019. [facility] Medical History Dementia Essential (primary) hypertension Near syncope Complete heart block Chronic cough DDD (degenerative disc disease) Osteoporosis Depression Bronchiectasis Visual loss Anemia HLD (hyperlipidemia) Paroxysmal atrial tachycardia Chest pain, unspecified Shortness of breath Home Medications ?Medication ?Instructions ?Recorded ?Last Taken ?Type montelukast 10 mg tablet 10 mg PO DAILY Check with primary 01/04/20 10/14/22 History doctor aspirin 81 mg chewable tablet 81 mg PO DAILY HEALTH MAINTENANCE 04/25/21 10/14/22 History galantamine 24 mg 24 hr 24 mg PO QAM #90 caps 03/16/24 Unknown Rx capsule,extended release acetaminophen 500 mg tablet 1,000 mg PO Q8H PRN Pain Score 06/14/24 Unknown History 4-02/25 amlodipine 5 mg tablet 5 mg PO DAILY 06/14/24 Unknown History buspirone 10 mg tablet 10 mg PO BID 06/14/24 Unknown History Allergy/AdvReac Type Severity Reaction Status Date / Time codeine Allergy Unknown Verified 03/16/24 10:55 Penicillins Allergy Unknown Verified 03/16/24 10:55 Sulfa (Sulfonamide Allergy Unknown Verified 03/16/24 10:55 Antibiotics) Family History Father , at age 82 CVA (cerebral vascular accident) CAD (coronary artery disease) Mother CAD (coronary artery disease) stomach aneurysm Brother Myocardial infarction CAD (coronary artery disease) CABG Sister CAD (coronary artery disease) Surgical History History of bunionectomy History of open reduction and internal fixation (ORIF) procedure (11/2019) 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) H/O shoulder surgery History of left heart catheterization History of right and left heart catheterization Social History Smoking Status: Never smoker alcohol intake: never substance use type: does not use caffeine: Yes Type: carbonated beverages and coffee what type of physical activity do you participate in: none seatbelt use: always do you feel safe at home: Yes ROS ROS ED Constitutional Constitutional ED: Denies chills, fever(s) or sweats ENT ENT ED: Denies sore throat Cardiovascular Cardiovascular: Denies chest pain, leg edema, palpitations or racing heartbeat Respiratory/Chest Respiratory/Chest: Denies cough, dyspnea or dyspnea on exertion Gastrointestinal Gastrointestinal: Denies abdominal pain, diarrhea, nausea or vomiting Genitourinary Genitourinary ED: Denies dysuria, hematuria or urinary frequency Musculoskeletal Musculoskeletal: Reports extremity pain and other Details: Left shoulder pain, left hip pain ; Denies back pain or neck pain Integumentary Denies rash or wounds Neurologic Neurologic: Denies headache(s), paresthesias or weakness EXAM Physical Exam Const Vital Signs: 06/14/24 18:11 06/14/24 20:11 06/14/24 21:30 Temperature 97.4 F L Temperature Source Oral Pulse Rate 99 94 100 Respiratory Rate 18 14 12 Blood Pressure 178/104 H 175/105 H 161/97 H Blood Pressure Mean 128 128 115 Pulse Ox 93 99 96 Oxygen Delivery Method Room Air Nasal Cannula Oxygen Flow Rate (L/min) 2 06/14/24 21:57 06/14/24 22:00 Temperature 97.9 F Temperature Source Pulse Rate 94 102 H Respiratory Rate 14 19 H Blood Pressure 175/105 H 158/96 H Blood Pressure Mean 128 115 Pulse Ox 99 97 Oxygen Delivery Method Oxygen Flow Rate (L/min) Constitutional Narrative: Thin female. GCS 15. General Appearance ED: NAD HEENT Reports moist mucous membranes normocephalic and atraumatic Eyes General Eye ED: Yes normal appearance of both eyes Neck full ROM and supple Neck Narrative: No midline tenderness. Chest Wall inspection of chest normal and palpation of chest normal Chest Narrative: Left upper chest pacemaker device palpated. Chest: Negative for tenderness Resp normal respiratory effort and normal air movement Effort and Inspection: symmetric chest movement; Negative for respiratory distress Cardio regular rate, regular rhythm and no murmurs Peripheral Pulses: pulses 2+ throughout GI normal to inspection, nondistended, normoactive bowel sounds and non-tender Palpation: Negative for guarding or rebound tenderness present Extremity Extremity Narrative: Left upper extremity: Mild tenderness proximal shoulder no clavicle tenderness no deformities noted. No upper arm tenderness no elbow tenderness. Soft compartments. Right upper extremity: No clavicle tenderness no shoulder tenderness. Right lower extremity: Negative logroll no tenderness. Left lower extremity: Hip in a slight flexed position, patient would not straighten due to pain there is positive logroll. No mid thigh tenderness no knee tenderness. Soft compartments. General Extremety ED: Negative for edema or tenderness General Extremity: Negative for edema Neuro CN's II-XII intact bilaterally and no sensory deficits noted Neuro Narrative: Alert to person and place baseline Sensorium / Orientation: awake and alert Skin no rashes or lesions noted and no wounds MDM MDM MDM Narrative Medical decision making narrative: Interventions / MDM: Differential diagnosis: Left hip fracture, left pelvic fracture, fall, dementia, shoulder contusion Diagnosis considered but do not suspect: intracranial hemorrhage however CT negative. My EKG interpretation: Paced rhythm rate of 86, no acute findings Imaging independently reviewed and interpreted by myself: 1 view chest x-ray: Elevated left hemidiaphragm. Pacemaker device left side. Left shoulder 2 views: No fracture or dislocation. Left hip with pelvis 3 views: Intertrochanteric fracture pubic rami fracture superior and inferior on the left. CT pelvis: Comminuted intertrochanteric fracture pelvis fracture is noted from x-ray. Also read by radiology. External documents reviewed: N/A Test considered but not ordered:N/A ED course: patient GCS 15. She does have dementia history. Concerns clinically of left hip fracture. IV established for labs. Left shoulder, chest x-ray, left hip and pelvis x-ray. CT brain will be ordered. Preop EKG and labs ordered. She wanted low-dose pain medicines therefore 2 mg of morphine ordered along with Zofran. 2100: CT brain negative. Left shoulder negative chest x-ray. Left hip concerns for superior and inferior pelvic rami fracture on the left along with intertrochanteric fracture. I spoke with orthopedist Dr. Leyva would like a CT pelvis including the left hip through the ED. He would like her n.p.o. at midnight. Will discuss with hospitalist for admission. Discussed with Dr. Stack for admission. Re-evaluation: stable Disposition discussed with patient/family/significant other: Patient and family Case discussed with consulting clinician: Orthopedics, hospitalist This note was generated with Keemotion dictation software. It may contain incorrect words, spelling, and punctuation that were not noted in checking the note before signing. Lab Data Attestation: I reviewed the patient's lab results. Labs: Laboratory Results - last 24 hr 06/14/24 18:40 WBC 5.6 RBC 4.69 Hgb 13.3 Hct 40.4 MCV 86.1 MCH 28.4 MCHC 32.9 RDW Std Deviation 43.8 RDW Coeff of Evelyn 13.8 Plt Count 174 MPV 9.2 Immature Gran % (Auto) 0.900 Neut % (Auto) 74.0 H Lymph % (Auto) 16.2 L [place] % (Auto) 7.7 Eos % (Auto) 0.5 Baso % (Auto) 0.7 Absolute Neuts (auto) 4.1 Absolute Lymphs (auto) 0.90 Nucleated RBC % 0 PT 13.8 INR 1.0 APTT 26.7 Sodium 138 Potassium 3.5 Chloride 103 Carbon Dioxide 28.0 Anion Gap 7 BUN 13 Creatinine 0.85 Estim Creat Clear Calc 41.02 Est GFR (MDRD) Af Amer 81 Est GFR (MDRD) Non-Af 67 BUN/Creatinine Ratio 15.2 Glucose 125 H Calcium 9.1 Triglycerides 150 Cholesterol 258 H LDL Cholesterol 168 H VLDL Cholesterol 30 HDL Cholesterol 60 Blood Type O POSITIVE Antibody Screen NEGATIVE Radiography Diagnostic Testing: Clinical Impression(s) from Imaging Studies Brain CT 06/14/24 18:31 IMPRESSION: Atrophy and age-related changes of the brain. Electronically Signed: Ulises Reyes DO at 19:48 EST Reading Location ID and State: [facility] / [place] Tel [phone], Service support , Chest X-Ray 06/14/24 19:20 IMPRESSION: Elevated left hemidiaphragm with basilar atelectasis. Electronically Signed: Ulises Reyes DO at 19:52 EST , Hip/Pelvis X-Ray 06/14/24 19:20 IMPRESSION: Intertrochanteric fracture of the left femur. [Left pubic rami fractures. Electronically Signed: Ulises Reyes DO at 19:43 EST , Shoulder X-Ray 06/14/24 19:20 IMPRESSION: No acute bony injury. Electronically Signed: Ulises Reyes DO at 19:50 EST , Pelvis CT 06/14/24 20:30 IMPRESSION: Fractures are noted of the left pubic rami. There is a comminuted intertrochanteric fracture of the left femur. Electronically Signed: Ulises Reyes DO at 21:36 EST , Discharge Plan Dx/Rx/DC Orders Clinical Impression: Closed left hip fracture, Dementia, Closed pelvic fracture, Contusion of left shoulder, Fall Disposition Disposition: Acute Care Hospital [facility] Discharge Date/Time: 06/14/24 23:17
--- NOTE | 2024-06-14 18:31 | CT_ITS ---
STUDY: CT BRAIN WITHOUT CONTRAST REASON FOR EXAM: Female, 88 years old. fall RADIATION DOSAGE (If Supplied By Facility): CTDIvol = ( 44.99 ) mGy, DLP = ( 779.24 ) mGycm TECHNIQUE: Transaxial CT imaging of the brain was performed without administration of intravenous contrast material. Individualized dose optimization techniques were used for this CT. COMPARISON: No relevant priors. FINDINGS: Normal soft tissue structures. Normal calvarium. Prominent ventricles and extra-axial spaces with atrophy. Bilateral white matter microangiopathic ischemic changes of the cerebral hemispheres. Normal basal ganglia and thalami. Normal brainstem. Normal cerebellum. There is no intracranial hemorrhage. There are no findings of an acute ischemic infarction. Normal visualized paranasal sinuses. CT/Brain/Head without Contrast IMPRESSION: Atrophy and age-related changes of the brain. Electronically Signed: Ulises Reyes DO at 19:48 EST ,
[2024-06-14] MEDS: Ondansetron 4 MG/2 ML Vial IV (18:39)
[2024-06-14] MEDS: Morphine 2 MG/ML Syringe IV ×2 (18:39→20:05)
[2024-06-14 18:59] LABS: Absolute Neutrophil Count 4.1 X10^3/uL (2.0-7.7); Basophil# 0.04 X10^3/uL; Basophil% 0.7 % (0-1); Eosinophil# 0.03 X10^3/uL; Eosinophils% 0.5 % (0-5); Hematocrit 40.4 % (37-47); Hemoglobin 13.3 g/dL (12.0-15.0); Lymphocyte % 16.2 % (19-41); Mean Corp Hgb Conc 32.9 g/dL (32-36); Mean Corpuscular Hgb 28.4 pg (27.0-32.0); Mean Corpuscular Volume 86.1 fL (81-99); Mean Platelet Vol. 9.2 fl (6.2-12.0); Monocyte# 0.43 X10^3/uL; Monocyte% 7.7 % (0-10); NRBC Flagged by Analyzer 0 % (0-5); Neutrophil # 4.12 X10^3/uL (2.7-7.7); Platelet Count 174 K/mm3 (150-450); RBC Distribution Width CV 13.8 % (11.6-14.6); RBC Distribution Width SD 43.8 fl (35.1-43.9); Red Blood Count 4.69 M/mm3 (4.2-5.4); White Blood Count 5.6 K/mm3 (4.4-11.0)
[2024-06-14 19:11] LABS: Anion Gap 7 (5-15); BUN 13 mg/dL (7-18); BUN/Creat Ratio 15.2 RATIO (10-20); Calcium,Total 9.1 mg/dL (8.5-10.1); Chloride 103 mmol/L (98-107); Creatinine, Serum 0.85 mg/dL (0.55-1.02); EST Glomerular Filtration Rate 67 mL/min (>60); Est Glom Filt Rate - Afr Amer 81 mL/min (>60); Estimated Creatinine Clearance 41.02 ml/min; Glucose 125 mg/dL (74-106); Potassium 3.5 mmol/L (3.5-5.1); Sodium Level 138 mmol/L (136-145)
[2024-06-14 19:19] LABS: Partial Thromboplast Time 26.7 Seconds (24.1-36.2); Prothrombin Time (Protime)PT. 13.8 SECONDS (11.7-14.9)
--- NOTE | 2024-06-14 19:20 | RAD_ITS ---
INDICATION: preop EXAMINATION/TECHNIQUE: X-RAY - XR Chest 1 View COMPARISON: September 11 2023 FINDINGS: LINES/DEVICES: Stable left-sided pacemaker. LUNGS: No consolidation, edema or effusion. Elevated left hemidiaphragm with left basilar atelectasis. No pneumothorax. MEDIASTINUM AND CARDIOVASCULAR STRUCTURES: Cardiac silhouette not enlarged. Central airways and mediastinal contour are unremarkable. BONES AND SOFT TISSUES: Unremarkable. RAD/Chest 1 View (Portable) IMPRESSION: Elevated left hemidiaphragm with basilar atelectasis. Electronically Signed: Ulises Reyes DO at 19:52 EST Reading Location ID and State: [facility] / [place] Tel [phone], Service support ,
--- NOTE | 2024-06-14 19:20 | RAD_ITS ---
INDICATION: injury EXAMINATION/TECHNIQUE: X-RAY - XR Hip Unilateral with Pelvis when performed; 4Views COMPARISON: FINDINGS: PELVIC BONES: Left pubic rami fractures. Sacroiliac joints are unremarkable. No widening of the pubic symphysis. HIPS: Intertrochanteric fracture of the left femur. [ SOFT TISSUES: No soft tissue swelling or gas. RAD/HIP, UNI W/ Pelvis 2-3 Views IMPRESSION: Intertrochanteric fracture of the left femur. [Left pubic rami fractures. Electronically Signed: Ulises Reyes DO at 19:43 EST Reading Location ID and State: [facility] / [place] Tel [phone], Service support ,
--- NOTE | 2024-06-14 19:20 | RAD_ITS ---
INDICATION: injury EXAMINATION/TECHNIQUE: X-RAY - LEFT XR Shoulder Min 2 Views 4 VIEWS COMPARISON: FINDINGS: SOFT TISSUES: No soft tissue swelling or gas. No radiopaque foreign body. BONES/JOINTS: No acute fracture or subluxation.. There is a left shoulder prosthesis in place.. No sclerotic or destructive changes observed. RAD/Shoulder min 2 Views IMPRESSION: No acute bony injury. Electronically Signed: Ulises Reyes DO at 19:50 EST ,
--- NOTE | 2024-06-14 20:30 | CT_ITS ---
INDICATION: fracture -- please include left hip EXAMINATION: CT PELVIS BONE - CT Pelvis W/O Contrast Injection TECHNIQUE: Routine noncontrast bone CT protocol was performed of the pelvis. 2-D reformats were performed by the technologist. The protocol utilizes one or more of the following dose reduction techniques: automated exposure control, adjustment of mA and/or kV according to patient size,and/or use of iterative reconstruction technique. IV Contrast dosage and agent: None. RADIATION DOSAGE (If Supplied By Facility): CTDIvol = ( 20.35 ) mGy, DLP = ( 727.94 ) mGycm COMPARISON: FINDINGS: Fractures are noted of the left pubic rami. There is a comminuted intertrochanteric fracture of the left femur. No sclerotic or destructive changes. Degenerative changes and scoliosis of the visualized lumbar vertebral column. CT/Pelvis without IV Contrast IMPRESSION: Fractures are noted of the left pubic rami. There is a comminuted intertrochanteric fracture of the left femur. Electronically Signed: Ulises Reyes DO at 21:36 EST Reading Location ID and State: [facility] / [place] Tel [phone], Service support ,
--- NOTE | 2024-06-14 21:54 | PCM.HP.STD ---
[facility] - General General Date of Admission: 06/14/24 Date of Service: 06/14/24 Chief Complaint: Left Hip Pain after Fall. 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 Ms. Kwon reports her symptoms began approximately one hour prior to arrival when she fell onto her Left side while she was trying to walk across her driveway after she tripped over the lip of the entrance to her garage. She denies LOC or significant head trauma with her fall and her family states that she was only down ~20 minutes as her was present as they were just returning home from dinner. She admits to persistent Left hip and shoulder pain with her fall with inability to ambulate. She denies head or neck pain and she additionally denies chest pain with activity or recent diagnosis of CAD - but she is notably irritable. There is no report of fever, chills, nausea, vomiting, diarrhea, constipation, chest pain, shortness of breath, headache or focal neurologic deficits. In the ER she was noted to have CT evidence of fractures of the Left pubic rami and comminuted intertrochanteric fracture of the Left femur along with shoulder x-ray that showed no acute bony injury along with head CT and chest x-ray that were unremarkable for acute pathologic changes. She was then admitted to the general medical floor for ongoing care for stay that is expected to extend beyond 2 midnights. [facility] Medical History Dementia Essential (primary) hypertension Near syncope Complete heart block Chronic cough DDD (degenerative disc disease) Osteoporosis Depression Bronchiectasis Visual loss Anemia HLD (hyperlipidemia) Paroxysmal atrial tachycardia Chest pain, unspecified Shortness of breath Home Medications ?Medication ?Instructions ?Recorded ?Last Taken ?Type montelukast 10 mg tablet 10 mg PO DAILY Check with primary 01/04/20 10/14/22 [address] doctor aspirin 81 mg chewable tablet 81 mg PO DAILY HEALTH MAINTENANCE 04/25/21 10/14/22 History galantamine 24 mg 24 hr 24 mg PO QAM #90 caps 03/16/24 Unknown Rx capsule,extended release acetaminophen 500 mg tablet 1,000 mg PO Q8H PRN Pain Score 06/14/24 Unknown History -02/25 amlodipine 5 mg tablet 5 mg PO DAILY 06/14/24 Unknown History buspirone 10 mg tablet 10 mg PO BID 06/14/24 Unknown History Allergy/AdvReac Type Severity Reaction Status Date / Time codeine Allergy Unknown Verified 03/16/24 10:55 Penicillins Allergy Unknown Verified 03/16/24 10:55 Sulfa (Sulfonamide Allergy Unknown Verified 03/16/24 10:55 Antibiotics) Family History Father , at age 82 CVA (cerebral vascular accident) CAD (coronary artery disease) Mother CAD (coronary artery disease) stomach aneurysm Brother Myocardial infarction CAD (coronary artery disease) CABG Sister CAD (coronary artery disease) Surgical History History of bunionectomy History of open reduction and internal fixation (ORIF) procedure (11/2019) 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) H/O shoulder surgery History of left heart catheterization History of right and left heart catheterization Social History Smoking Status: Never smoker alcohol intake: never substance use type: does not use caffeine: Yes Type: carbonated beverages and coffee what type of physical activity do you participate in: none seatbelt use: always do you feel safe at home: Yes ROS ROS Narrative Review of Systems: Constitutional: Patient denies fever or chills. Eyes: Patient has chronic visual loss in her lower curtis which is unchanged from previous. ENT: Patient denies runny nose, sore throat or ear pain. Resp: Patient denies shortness of breath or cough. CV: Patient denies chest pain, palpitations, heart racing or lower extremity edema. GI: Patient denies abdominal pain, nausea, vomiting, diarrhea or constipation. : Patient denies dysuria, hematuria or urinary frequency. MSK: Patient admits to ongoing significant pain in her Left hip and Left shoulder as per HPI. She denies back pain or neck pain. Skin: Patient denies rash, abscess, wounds or jaundice. Psych: Patient denies symptoms of uncontrolled depression or anxiety. Neuro: Patient has chronic dementia but she denies headache, paresthesias or focal neurologic deficits. Allergy: Patient denies lip swelling, tongue swelling or urticaria. Hematology: Patient denies easy bleeding or easy bruisability. Endocrinology: Patient denies polyuria, polydipsia or polyphagia. 14 point review of systems otherwise negative except for positives noted above in HPI. Vital Signs Vital Signs Vital Signs: 06/14/24 18:11 06/14/24 20:11 Temperature 97.4 F L Temperature Source Oral Pulse Rate 99 94 Respiratory Rate 18 14 Blood Pressure 178/104 H 175/105 H Blood Pressure Mean 128 128 Pulse Ox 93 99 Oxygen Delivery Method Room Air Nasal Cannula Oxygen Flow Rate (L/min) 2 Weight Weight: 122 lb 12.76 oz Body Mass Index (BMI) 21.0 Physical Exam Const alert, oriented x3, no apparent distress and average body habitus General Appearance: cooperative HEENT normocephalic, head/scalp atraumatic, hearing grossly normal bilaterally and moist oral mucous membranes Eyes PERRL, EOMs intact bilaterally and conjunctivae normal Neck no lymphadenopathy and supple Resp normal respiratory effort, no retractions, no use of accessory muscles and clear to auscultation bilaterally Cardio regular rate and regular rhythm GI normal to inspection, nondistended, normoactive bowel sounds, soft to palpation, non-tender and non-distended Extremity Extremity Narrative: Left lower extremity noted to be in slightly flexed position at the hip with positive logroll and patient refusing to straighten due to increased pain. No mid thigh tenderness or knee tenderness. Soft compartments. There is no sign of vascular compromise with good pulses throughout. Skin Skin Narrative: There is no evidence of rash, abscess, wounds or jaundice. Neuro oriented x3, CN's II-XII intact bilaterally, moves all extremities and no focal motor deficits Sensorium / Orientation: awake, alert, oriented to person, oriented to place and oriented to time Speech: speech normal Psych affect normal Results Medical Records Data Attestation: I reviewed the patient's medical records Lab / Micro Data Attestation: I reviewed the patient's lab results. 06/14/24 18:40 06/14/24 18:40 Labs: Laboratory Results - last 24 hr 06/14/24 18:40: WBC 5.6, RBC 4.69, Hgb 13.3, Hct 40.4, MCV 86.1, MCH 28.4, MCHC 32.9, RDW Std Deviation 43.8, RDW Coeff of Evelyn 13.8, Plt Count 174, MPV 9.2, Immature Gran % (Auto) 0.900, Neut % (Auto) 74.0 H, Lymph % (Auto) 16.2 L, [place] % (Auto) 7.7, Eos % (Auto) 0.5, Baso % (Auto) 0.7, Absolute Neuts (auto) 4.1, Absolute Lymphs (auto) 0.90, Nucleated RBC % 0, PT 13.8, INR 1.0, APTT 26.7, Sodium 138, Potassium 3.5, Chloride 103, Carbon Dioxide 28.0, Anion Gap 7, BUN 13, Creatinine 0.85, Estim Creat Clear Calc 41.02, Est GFR (MDRD) Af Amer 81, Est GFR (MDRD) Non-Af 67, BUN/Creatinine Ratio 15.2, Glucose 125 H, Calcium 9.1, Blood Type O POSITIVE, Antibody Screen NEGATIVE Imaging Radiology Impression Brain CT 06/14/24 18:31 IMPRESSION: Atrophy and age-related changes of the brain. Electronically Signed: Ulises Reyes DO at 19:48 EST , Chest X-Ray 06/14/24 19:20 IMPRESSION: Elevated left hemidiaphragm with basilar atelectasis. Electronically Signed: Ulises Reyes DO at 19:52 EST , Hip/Pelvis X-Ray 06/14/24 19:20 IMPRESSION: Intertrochanteric fracture of the left femur. [Left pubic rami fractures. Electronically Signed: Ulises Reyes at 19:43 EST , Shoulder X-Ray 06/14/24 19:20 IMPRESSION: No acute bony injury. Electronically Signed: Ulises Reyes at 19:50 EST , Pelvis CT 06/14/24 20:30 IMPRESSION: Fractures are noted of the left pubic rami. There is a comminuted intertrochanteric fracture of the left femur. Electronically Signed: Ulises ReyesDO at 21:36 EST , Assessment & Plan Assessment/Plan (1) Closed left hip fracture: QUALIFIERS: Encounter type: initial encounter Qualified Code(s): S72.002A - Fracture of unspecified part of neck of left femur, initial encounter for closed fracture (2) Fracture of left inferior pubic ramus: QUALIFIERS: Encounter type: initial encounter Fracture type: closed Qualified Code(s): S32.592A - Other specified fracture of left pubis, initial encounter for closed fracture (3) Left shoulder pain: QUALIFIERS: Chronicity: acute Qualified Code(s): M25.512 - Pain in left shoulder (4) Fall at home: QUALIFIERS: Encounter type: initial encounter Qualified Code(s): W19.XXXA - Unspecified fall, initial encounter; Y92.009 - Unspecified place in unspecified non-institutional (private) residence as the place of occurrence of the external cause (5) Impaired vision in both eyes: (6) Dementia: QUALIFIERS: Dementia behavioral or psychological symptom: without behavioral, psychotic, or mood disturbance or anxiety Dementia severity: mild Dementia type: unspecified type Qualified Code(s): F03.A0 - Unspecified dementia, mild, without behavioral disturbance, psychotic disturbance, mood disturbance, and anxiety (7) Essential (primary) hypertension: PLAN: Plan 1. CT evidence of fractures of the Left pubic rami and comminuted intertrochanteric fracture of the Left femur after recent Fall - Admit to general medical floor. Keep n.p.o. except medications, ice chips and sips with impending ORIF. Give morphine IV as needed for severe (level 6-10/10) pain. Finally, we will consult orthopedic surgeon on-call to see this patient on rounds in the a.m. for further recommendations regarding ORIF with help appreciated in advance. 2. Persistent Left shoulder pain due to soft tissue injury after fall with imaging negative for acute fracture complicating #1 - PT/OT and Case Management consult and treat after ORIF. Patient will likely need ECF for subacute rehabilitation. 3. History of visual loss in bilateral lower visual curtis suspected to be playing a causative role leading to #1 - Noted. 4. Chronic Dementia; on galantamine compounding #1 - #3 - Maintain galantamine as previous. Check TSH. 5. Essential Hypertension; on amlodipine - Resume amlodipine as previous. Give hydralazine IV as needed for systolic blood pressure greater than 160 mmHg. 6. History of Hyperlipidemia - Noted with patient currently not on pharmacologic therapy. Check Lipid Profile this admission. 7. History of paroxysmal atrial tachycardia - Noted. 8. History of complete heart block; s/p PPM (first placed in 1994 with most recent generator change in 2019) - Noted. 9. History of near syncope - Noted. 10. Chronic anemia - Stable with hemoglobin of 13.3 g/dL and MCV of 86.1 fL present on admission. 11. History of bronchiectasis - Noted. 12. Depression with anxiety; on buspirone - Continue buspirone as before. 13. Listed allergy to PCN (?) - Noted. 14. Listed allergy to sulfa antibiotics (?) - Noted. 15. Listed allergy to codeine (?) - Noted. 16. OA; with DDD and history of Left shoulder replacement at [facility] (2019) - Noted. Give Tylenol prn. 17. DVT prophylaxis - SCD on RLE only with chemoprophylaxis relatively contraindicated in cases of traumatic fracture due to increased risk of potential bleeding complications. Orthopedist to decide upon postoperative DVT prophylaxis regimen. Total time: Approximately (but not less than) 75 minutes. Charges/Coding Visit Charges Inpatient E&M: 95601 Init Hosp L3
[2024-06-14 22:54] LABS: Cholesterol 258 mg/dL (200); High Density Lipoprotein 60 mg/dL; Triglycerides 150 mg/dL; Very Low Density Lipoprotein 30 mg/dL (5-40)
[2024-06-15] VITALS (7 sets, daily range): BP systolic 125–160; BP diastolic 88–104; PULSE 65–103; RESP 16–19; TEMP 36.4–37.2; O2SAT 93–95; BMI 20.9; BMI 17.2
[2024-06-15] MEDS: 0.9% Normal Saline (1000mL) 1,000 ML 50 ML IV (00:24)
[2024-06-15] MEDS: Morphine 2 MG/ML Syringe IV ×4 (05:57→22:38)
[2024-06-15] MEDS: 0.9% Saline Lock 10 ML Syringe IV ×4 (05:57→22:38)
[2024-06-15 07:54] LABS: Absolute Lymphocyte Count 0.58 X10^3/uL (0.83-4.51); Absolute Neutrophil Count 8.3 X10^3/uL (2.0-7.7); Basophil# 0.02 X10^3/uL; Basophil% 0.2 % (0-1); Eosinophil# 0.01 X10^3/uL; Eosinophils% 0.1 % (0-5); Hematocrit 39.4 % (37-47); Hemoglobin 12.5 g/dL (12.0-15.0); Lymphocyte # 0.58 X10^3/ul (0.83-4.51); Mean Corp Hgb Conc 31.7 g/dL (32-36); Mean Corpuscular Hgb 27.7 pg (27.0-32.0); Mean Corpuscular Volume 87.4 fL (81-99); Mean Platelet Vol. 9.7 fl (6.2-12.0); Monocyte# 0.72 X10^3/uL; Monocyte% 7.4 % (0-10); NRBC Flagged by Analyzer 0 % (0-5); Neutrophil # 8.32 X10^3/uL (2.7-7.7); Neutrophil % 85.9 % (47-70); POSITIVE DIFFERENTIAL YES; Platelet Count 159 K/mm3 (150-450); RBC Distribution Width CV 13.7 % (11.6-14.6); RBC Distribution Width SD 43.8 fl (35.1-43.9); Red Blood Count 4.51 M/mm3 (4.2-5.4); White Blood Count 9.7 K/mm3 (4.4-11.0)
--- NOTE | 2024-06-15 07:56 | PN.HOSP_ITS ---
Reason for Visit Reason for Visit: Diagnoses Unspecified dementia, mild, without behavioral disturbance, psychotic disturbance, mood disturbance, and anxiety (06/14/24) Unqualified visual loss, both eyes (06/14/24) Essential (primary) hypertension (06/14/24) Pain in left shoulder (06/14/24) Other specified fracture of left pubis, initial encounter for closed fracture (06/14/24) Fracture of unspecified part of neck of left femur, initial encounter for closed fracture (06/14/24) Unspecified fall, initial encounter (06/14/24) Unspecified place in unspecified non-institutional (private) residence as the place of occurrence of the external cause (06/14/24) Subjective Subjective Patient is a 88-year-old lady who presented for following a fall in her driveway. Imaging studies obtained demonstrated evidence of fractures of the Left pubic rami and comminuted intertrochanteric fracture of the Left femur. Patient admitted to regular nursing floor with consultation placed orthopedic surgery Objective Data Objective Data Vital Signs: Vital Signs Temp Pulse Resp BP Pulse Ox O2 Del Method O2 Flow Rate 98.4 F 102 H 18 136/98 H 94 Nasal Cannula 2 06/15/24 05:20 06/15/24 05:20 06/15/24 05:20 06/15/24 05:20 06/15/24 07:31 06/15/24 07:31 06/15/24 07:31 Oxygen Flow Rate (L/min) 2 Oxygen Delivery Method Nasal Cannula Weight: 55.8 kg Body Mass Index (BMI) 20.9 Intake & Output: Intake and Output for Last 24 Hours 06/13/24 06/14/24 06/15/24 23:59 23:59 23:59 Intake Total 0 / 0 Output Total 350 / 350 Balance -350 / -350 Lab / Micro Data 06/15/24 06:22 06/15/24 06:22 Labs: Laboratory Results - last 24 hr 06/14/24 18:40: WBC 5.6, RBC 4.69, Hgb 13.3, Hct 40.4, MCV 86.1, MCH 28.4, MCHC 32.9, RDW Std Deviation 43.8, RDW Coeff of Evelyn 13.8, Plt Count 174, MPV 9.2, Immature Gran % (Auto) 0.900, Neut % (Auto) 74.0 H, Lymph % (Auto) 16.2 L, [place] % (Auto) 7.7, Eos % (Auto) 0.5, Baso % (Auto) 0.7, Absolute Neuts (auto) 4.1, Absolute Lymphs (auto) 0.90, Nucleated RBC % 0, PT 13.8, INR 1.0, APTT 26.7, Sodium 138, Potassium 3.5, Chloride 103, Carbon Dioxide 28.0, Anion Gap 7, BUN 13, Creatinine 0.85, Estim Creat Clear Calc 41.02, Est GFR (MDRD) Af Amer 81, Est GFR (MDRD) Non-Af 67, BUN/Creatinine Ratio 15.2, Glucose 125 H, Calcium 9.1, Triglycerides 150, Cholesterol 258 H, LDL Cholesterol 168 H, VLDL Cholesterol 30, HDL Cholesterol 60, Blood Type O POSITIVE, Antibody Screen NEGATIVE Radiography Diagnostic Testing: Radiology Impression Brain CT 06/14/24 18:31 IMPRESSION: Atrophy and age-related changes of the brain. Electronically Signed: Ulises Reyes DO at 19:48 EST , Chest X-Ray 06/14/24 19:20 IMPRESSION: Elevated left hemidiaphragm with basilar atelectasis. Electronically Signed: Ulises Reyes DO at 19:52 EST , Hip/Pelvis X-Ray 06/14/24 19:20 IMPRESSION: Intertrochanteric fracture of the left femur. [Left pubic rami fractures. Electronically Signed: Ulises Reyes DO at 19:43 EST , Shoulder X-Ray 06/14/24 19:20 IMPRESSION: No acute bony injury. Electronically Signed: Ulises Reyes DO at 19:50 EST , Pelvis CT 06/14/24 20:30 IMPRESSION: Fractures are noted of the left pubic rami. There is a comminuted intertrochanteric fracture of the left femur. Electronically Signed: Ulises Reyes DO at 21:36 EST Reading Location ID and State: [facility] / [place] Tel [phone], Service support , Physical Exam Narrative GENERAL: Patient appears to be in some discomfort HEENT: Atraumatic; normocephalic EYES; Anicteric, Normal Conjunctiva NECK; supple, normal thyroid, RESPIRATORY: Diminished to auscultation CARDIOVASCULAR: Regular S1 S2, GI: soft, normoactive bowel sounds, : No Renal angle tenderness; EXTREMITIES: No edema, no clubbing, MUSCULOSKELETAL: no muscle wasting NEURO: Awake; no lateralizing signs. SKIN: No Rash PSYCH; Flat affect Assessment & Plan Assessment/Plan (1) Closed left hip fracture: QUALIFIERS: Encounter type: initial encounter Qualified Code(s): S72.002A - Fracture of unspecified part of neck of left femur, initial encounter for closed fracture (2) Fracture of left inferior pubic ramus: QUALIFIERS: Encounter type: initial encounter Fracture type: c losed Qualified Code(s): S32.592A - Other specified fracture of left pubis, initial encounter for closed fracture (3) Left shoulder pain: QUALIFIERS: Chronicity: acute Qualified Code(s): M25.512 - Pain in left shoulder (4) Fall at home: QUALIFIERS: Encounter type: initial encounter Qualified Code(s): W19.XXXA - Unspecified fall, initial encounter; Y92.009 - Unspecified place in unspecified non-institutional (private) residence as the place of occurrence of the external cause (5) Impaired vision in both eyes: (6) Dementia: QUALIFIERS: Dementia behavioral or psychological symptom: without behavioral, psychotic, or mood disturbance or anxiety Dementia severity: mild Dementia type: unspecified type Qualified Code(s): F03.A0 - Unspecified dementia, mild, without behavioral disturbance, psychotic disturbance, mood disturbance, and anxiety (7) Essential (primary) hypertension: PLAN: Plan Patient is a 88-year-old lady who presented for following a fall in her driveway. Imaging studies obtained demonstrated evidence of fractures of the Left pubic rami and comminuted intertrochanteric fracture of the Left femur. Patient admitted to regular nursing floor with consultation placed orthopedic surgery 1. Fall with evidence of fractures of the Left pubic rami and comminuted intertrochanteric fracture of the Left femur. ?Patient has been admitted to regular nursing floor management initiated with immobilization pain management with consultation placed to orthopedic surgery 2. Left shoulder pain ? Secondary to left shoulder bruise following the fall requested for PT OT eval Hypertension ? Blood pressure controlled, home medications continued with dose adjustment as needed 4. Sick sinus syndrome ? Status post pacemaker placement 5. Dementia ? Patient is on galantamine 6. Anxiety disorder ? Patient is on buspirone 7. DVT prophylaxis ? Bilateral SCDs for now with plans to initiate chemoprophylaxis following surgical intervention Time spent in the patient's overall evaluation,decision-making process, review of diagnostic data, adjustment of management, discussion with other providers, nursing nursing and ancillary staff involved in patient's care documentation, 53 Minutes Advance planning; did discuss with patient's family regarding advanced directives as well as CODE STATUS. Did explain the various scenarios involved ( FULL CODE, DNR CCA, DNR CCA with no intubation, and DNR CC and what each meant) plan is for patient to remain DNR CCA no intubation. Order was placed. Time spent on discussion 16 minutes. Charges/Coding Multi Select Codes Visit Charges Visit Charges: 59668 [facility] Hospitalists' Procedures Procedures: 01923 Advncd Care Plan 30 Min
[2024-06-15 08:53] LABS: ALB/GLOB Ratio 1.2 RATIO (0.9-2.4); AST(SGOT) 22 U/L (15-37); Alanine Aminotransfer ALT/SGPT 22 U/L (13-56); Albumin, Serum 3.3 g/dL (3.2-5.0); Alkaline Phosphatase 69 U/L (45-117); Anion Gap 8 (5-15); BUN 13 mg/dL (7-18); BUN/Creat Ratio 18.8 RATIO (10-20); Calcium,Total 8.6 mg/dL (8.5-10.1); Chloride 104 mmol/L (98-107); Creatinine, Serum 0.69 mg/dL (0.55-1.02); EST Glomerular Filtration Rate 85 mL/min (>60); Est Glom Filt Rate - Afr Amer 103 mL/min (>60); Estimated Creatinine Clearance 43.59 ml/min; Globulin 2.7 g/dL (2.2-4.2); Glucose 115 mg/dL (74-106); Magnesium 2.2 mg/dL (1.6-2.6); Potassium 3.3 mmol/L (3.5-5.1); Sodium Level 138 mmol/L (136-145)
[2024-06-15] MEDS: Aspirin 81 MG TAB.CHEW PO (09:25)
[2024-06-15] MEDS: Ensure Plus High Protein 120 ML LIQUID PO (09:26)
[2024-06-15] MEDS: busPIRone 5 MG Tablet 10 MG PO (09:26)
[2024-06-15] MEDS: amLODIPine 5 MG Tablet PO (09:27)
[2024-06-15] MEDS: Cyanocobalamin 500 MCG Tablet 1000 MCG PO (09:27)
[2024-06-15] MEDS: Montelukast 10 MG Tablet PO (09:27)
[2024-06-15] MEDS: Potassium Chloride Oral Tablet 20 MEQ 40 MEQ PO (09:42)
--- NOTE | 2024-06-15 10:09 | CASEMGMT ---
JOYCE HODGE Assessment: Face to Face with pt for initial transition planning/care coordination assessment. JOYCE HODGE introduced self and role at [facility], pt voices understanding and consents to assessment. Pt is A&O x4 and answers all questions appropriately at this time. Pt lying in bed in no distress, family present in room. Pt kept falling asleep, agreeable to JOYCE HODGE discussing assessment and DC plan with family. Care providers, pharmacy, and demographics verified/updated. Strata: 2 Admitting Dx: L Hip Fracture PCP: Huseyin Specialists: Cardiology, Michele Preferred Pharmacy: [facility] Insurance: [facility] Prescription Benefit: yes LNOK: , Marciano; Daughters Holly and Estee Living Arrangements: Pt lives with in a ranch home with 2 steps to enter. ADLs: Family states Pt needs assistance with ADLs and IADLs. Family reports Pt has dementia at baseline. Transportation: Pt provides transportation. DME: WC, Cane, Walker, sponge baths HHC/SNF: Denies Hx of. Pt family requested family goes to TCU at time of DC, denied wanting list of local SNF's. Pt states no further concerns/needs. SW/CM to follow. Advised pt to ask CM if any further question/concerns/needs arise, voices understanding. Pt Goal: TBD Plan: TBD, follow therapy for recommendations. TCU is family preference. Silvano COOK CM
--- NOTE | 2024-06-15 10:15 | CASEMGMT ---
Pt daughter asked to speak with this RN AYESHA, requesting to fill out HCPOA paperwork. RN CM notified SW.
--- NOTE | 2024-06-15 10:45 | CASEMGMT ---
Social Work CM met w/pt and family, they declined a SNF list initially, would like TCU. SW did call, will need to make formal referral tomorrow after pt has surgery. There may not be a bed, will know more tomorrow. Family had asked about completing POA papers as well, want to make the POA. However, pt has dementia. SW met w/pt, , daughters Holly and Estee in the room. SW explained to family that in order for pt to complete POA papers she would need to fully understand as she would be the one to sign the documents. Pt's states he could sign. SW again explained pt needs to be the one to sign the papers. Pt's states that pt's glasses and pen are there and she could sign. SW again explained to family pt would need to understand what she is signing. SW explained without the document, would be the decision maker, and after that the children equally. Family is okay with this. As SW was speaking w/pt and family, pt asked, what the heck are we talking about? SW also explained to pt that her would be her decision maker if she could not make decisions for herself. She states, he has been making decisions for me for the last 50 years! Family states pt and have been together 68 years, daughter Estee states they met in elementary school. REGGIE did inquire of pt how many children she has, she states 4, family confirmed this to be accurate. Jose J Singleton does think the four children would be able to make decisions together should it be needed. REGGIE also spoke w/the family about SNF choices. SW explained that there may or may not be a bed in TCU when pt is medically ready. REGGIE did bring back to jose j Singleton a list from [facility] of jail facilities in network w/pt's insurance, in pt's preferred geographic area and complete w/quality and resource use data. REGGIE explained that SW tomorrow will follow up w/pt and family postoperatively. GRETTA Chery
--- NOTE | 2024-06-15 10:56 | CASEMGMT ---
Discharge Planning A list of SNF providers including quality and resource use data and consistent with the patient's preferred geographic region, medical needs, and insurance network was created in [employer] Guide.? This list was provided to the SW. Mriacle Rodriguez Discharge Planning Asst.
--- NOTE | 2024-06-15 12:40 | CON.PCM.OR_ITS ---
HPI Consult Data Date of Consult: 06/15/24 HPI Narrative HPI Narrative: SRINIVAS KWON, is a 88 F who presents with left hip pain after fall. Srinivas has baseline dementia and has difficulty with balance at baseline but tries to avoid using cane or walker. She had an unwitnessed fall in the garage, believes that the step right before the garage tripped her. She had left hip and left shoulder pain after this. She was brought to the hospital and was found to have left hip intertrochanteric fracture. In addition there were undisplaced fracture of the superior inferior pubic rami. Left shoulder x-ray did not show any acute osseous abnormalities. She was admitted with medicine last night. I was consulted from the ER yesterday. I saw her in 307 today. She was resting comfortably. Most of the history was taken from the family members around her. She has known cardiac comorbidities and pacemaker. She follows Dr. Bautista. She is not diabetic, takes aspirin. Denies any known history of prior left hip pain. No other areas of injury. I woke her up to get some history from her. She denies any other areas of pain other than the left hip and left shoulder. FOR[facility]LY [facility] Medical History Dementia Essential (primary) hypertension Near syncope Complete heart block Chronic cough DDD (degenerative disc disease) Osteoporosis Depression Bronchiectasis Visual loss Anemia HLD (hyperlipidemia) Paroxysmal atrial tachycardia Chest pain, unspecified Shortness of breath Home Medications ?Medication ?Instructions ?Recorded ?Last Taken ?Type montelukast 10 mg tablet 10 mg PO DAILY Check with primary 01/04/20 10/14/22 History doctor aspirin 81 mg chewable tablet 81 mg PO DAILY HEALTH MAINTENANCE 04/25/21 10/14/22 History galantamine 24 mg 24 hr 24 mg PO QAM #90 caps 03/16/24 Unknown Rx capsule,extended release acetaminophen 500 mg tablet 1,000 mg PO Q8H PRN Pain Score 06/14/24 Unknown History 4-02/25 amlodipine 5 mg tablet 5 mg PO DAILY 06/14/24 Unknown History buspirone 10 mg tablet 10 mg PO BID 06/14/24 Unknown History Allergy/AdvReac Type Severity Reaction Status Date / Time codeine Allergy Unknown Verified 03/16/24 10:55 Penicillins Allergy Unknown Verified 03/16/24 10:55 Sulfa (Sulfonamide Allergy Unknown Verified 03/16/24 10:55 Antibiotics) Family History Father , at age 82 CVA (cerebral vascular accident) CAD (coronary artery disease) Mother CAD (coronary artery disease) stomach aneurysm Brother Myocardial infarction CAD (coronary artery disease) CABG Sister CAD (coronary artery disease) Surgical History History of bunionectomy History of open reduction and internal fixation (ORIF) procedure (11/2019) 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) H/O shoulder surgery History of left heart catheterization History of right and left heart catheterization Social History Smoking Status: Never smoker alcohol intake: never substance use type: does not use caffeine: Yes Type: carbonated beverages and coffee what type of physical activity do you participate in: none seatbelt use: always do you feel safe at home: Yes Vital Signs Vital Signs Vital Signs: 06/14/24 18:11 06/14/24 20:11 06/14/24 21:30 Temperature 97.4 F L Temperature Source Oral Pulse Rate 99 94 100 Pulse Strength Respiratory Rate 18 14 12 Respiratory Effort Respiratory Depth Respiratory Pattern Blood Pressure 178/104 H 175/105 H 161/97 H Blood Pressure Mean 128 128 115 Blood Pressure Source Blood Pressure Position Blood Pressure Location Pulse Ox 93 99 96 Oxygen Delivery Method Room Air Nasal Cannula Oxygen Flow Rate (L/min) 2 06/14/24 21:57 06/14/24 22:00 06/14/24 23:21 Temperature 97.9 F Temperature Source Pulse Rate 94 102 H 104 H Pulse Strength Respiratory Rate 14 19 H Respiratory Effort Normal Non-Labored Respiratory Depth Normal Respiratory Pattern Tachypnea Blood Pressure 175/105 H 158/96 H Blood Pressure Mean 128 115 Blood Pressure Source Blood Pressure Position Blood Pressure Location Pulse Ox 99 97 Oxygen Delivery Method Room Air Oxygen Flow Rate (L/min) 06/14/24 23:30 06/15/24 05:20 06/15/24 05:21 Temperature 98.7 F 98.4 F Temperature Source Temporal Oral Pulse Rate 104 H 102 H Pulse Strength Respiratory Rate 20 H 18 Respiratory Effort Respiratory Depth Respiratory Pattern Blood Pressure 159/96 H 136/98 H Blood Pressure Mean 117 110 Blood Pressure Source Monitor Monitor Blood Pressure Position Semi-Fowlers Semi-Fowlers Blood Pressure Location Right Arm Right Arm Pulse Ox 94 94 Oxygen Delivery Method Room Air Room Air Nasal Cannula Oxygen Flow Rate (L/min) 2 06/15/24 07:31 06/15/24 08:44 06/15/24 08:48 Temperature 98.9 F Temperature Source Oral Pulse Rate 103 H Pulse Strength Respiratory Rate 18 Respiratory Effort Normal Non-Labored Respiratory Depth Normal Respiratory Pattern Normal Blood Pressure 160/104 H Blood Pressure Mean 122 Blood Pressure Source Monitor Blood Pressure Position Semi-Fowlers Blood Pressure Location Right Arm Pulse Ox 94 93 Oxygen Delivery Method Nasal Cannula Room Air Room Air Oxygen Flow Rate (L/min) 2 06/15/24 10:45 06/15/24 10:55 06/15/24 11:49 Temperature 98.1 F 97.6 F L Temperature Source Temporal Oral Pulse Rate 99 88 Pulse Strength Normal (2+) Respiratory Rate 17 19 H Respiratory Effort Respiratory Depth Respiratory Pattern Blood Pressure 147/93 H 152/88 H Blood Pressure Mean 111 109 Blood Pressure Source Monitor Monitor Blood Pressure Position Semi-Fowlers Semi-Fowlers Blood Pressure Location Right Arm Right Arm Pulse Ox 95 94 Oxygen Delivery Method Room Air Room Air Oxygen Flow Rate (L/min) Weight Weight: 100 lb Body Mass Index (BMI) 17.2 Physical Exam Narrative Examination left hip shows tenderness over the left greater trochanter. Distal neurovascular exam is intact. She is able to move her toes on command. No significant swelling around the knees. Her right upper and right lower extremity show full range of painless movement. She holds her left shoulder in adduction but is able to extend her elbow. Pain with abduction. Distal neurovascular exam is intact in the upper extremities well. No obvious bony tenderness or swelling around the left shoulder. Lab / Micro Data 06/15/24 06:22 06/15/24 06:22 Labs: Laboratory Results - last 24 hr 06/14/24 18:40: WBC 5.6, RBC 4.69, Hgb 13.3, Hct 40.4, MCV 86.1, MCH 28.4, MCHC 32.9, RDW Std Deviation 43.8, RDW Coeff of Evelyn 13.8, Plt Count 174, MPV 9.2, Immature Gran % (Auto) 0.900, Neut % (Auto) 74.0 H, Lymph % (Auto) 16.2 L, [place] % (Auto) 7.7, Eos % (Auto) 0.5, Baso % (Auto) 0.7, Absolute Neuts (auto) 4.1, Absolute Lymphs (auto) 0.90, Nucleated RBC % 0, PT 13.8, INR 1.0, APTT 26.7, Sodium 138, Potassium 3.5, Chloride 103, Carbon Dioxide 28.0, Anion Gap 7, BUN 13, Creatinine 0.85, Estim Creat Clear Calc 41.02, Est GFR (MDRD) Af Amer 81, Est GFR (MDRD) Non-Af 67, BUN/Creatinine Ratio 15.2, Glucose 125 H, Calcium 9.1, Triglycerides 150, Cholesterol 258 H, LDL Cholesterol 168 H, VLDL Cholesterol 30, HDL Cholesterol 60, Blood Type O POSITIVE, Antibody Screen NEGATIVE 06/15/24 06:22: WBC 9.7, RBC 4.51, Hgb 12.5, Hct 39.4, MCV 87.4, MCH 27.7, MCHC 31.7 L, RDW Std Deviation 43.8, RDW Coeff of Evelyn 13.7, Plt Count 159, MPV 9.7, Immature Gran % (Auto) 0.400, Neut % (Auto) 85.9 H, Lymph % (Auto) 6.0 L, [place] % (Auto) 7.4, Eos % (Auto) 0.1, Baso % (Auto) 0.2, Absolute Neuts (auto) 8.3 H, A bsolute Lymphs (auto) 0.58 L, Nucleated RBC % 0, Sodium 138, Potassium 3.3 L, Chloride 104, Carbon Dioxide 26.0, Anion Gap 8, BUN 13, Creatinine 0.69, Estim Creat Clear Calc 43.59, Est GFR (MDRD) Af Amer 103, Est GFR (MDRD) Non-Af 85, BUN/Creatinine Ratio 18.8, Glucose 115 H, Calcium 8.6, Phosphorus 3.0, Magnesium 2.2, Total Bilirubin 0.80, AST 22, ALT 22, Alkaline Phosphatase 69, Total Protein 6.0 L, Albumin 3.3, Globulin 2.7, Albumin/Globulin Ratio 1.2, TSH 0.720 Imaging Radiology Impression Brain CT 06/14/24 18:31 IMPRESSION: Atrophy and age-related changes of the brain. Electronically Signed: Ulises DO Eric at 19:48 EST , Chest X-Ray 06/14/24 19:20 IMPRESSION: Elevated left hemidiaphragm with basilar atelectasis. Electronically Signed: Ulises Reyes DO at 19:52 EST , Hip/Pelvis X-Ray 06/14/24 19:20 IMPRESSION: Intertrochanteric fracture of the left femur. [Left pubic rami fractures. Electronically Signed: Ulises Reyes DO at 19:43 EST , Shoulder X-Ray 06/14/24 19:20 IMPRESSION: No acute bony injury. Electronically Signed: Ulises Reyes DO at 19:50 EST , Pelvis CT 06/14/24 20:30 IMPRESSION: Fractures are noted of the left pubic rami. There is a comminuted intertrochanteric fracture of the left femur. Electronically Signed: Ulises Reyes DO at 21:36 EST , Assessment & Plan Assessment/Plan (1) Fracture of left inferior pubic ramus: QUALIFIERS: Encounter type: initial encounter Fracture type: c losed Qualified Code(s): S32.592A - Other specified fracture of left pubis, initial encounter for closed fracture (2) Fracture, intertrochanteric, left femur: QUALIFIERS: Encounter type: initial encounter Fracture type: c losed Fracture alignment: nondisplaced Qualified Code(s): S72.145A - Nondisplaced intertrochanteric fracture of left femur, initial encounter for closed fracture PLAN: Plan Reviewed x-rays of the left hip and pelvis done last night in the ER. Also requested ER to obtain CT of pelvis and left hip. These show nondisplaced left intratrochanteric femoral fracture with nondisplaced inferior superior pubic ramus fracture on the left. No other obvious pelvic injuries. Left shoulder x- ray shows evidence of shoulder arthroplasty without any obvious periprosthetic fractures. Explained to the family and patient the imaging findings in detail. Explained to her that the pubic rami fractures will not require any surgical intervention, however the left intertrochanteric fracture will require operative fixation. The goal of operative fixation is to get her back to mobility and reduce recumbency complications and to allow healing of the fracture with good alignment. ORIF with cephalomedullary nailing with gamma nail was recommended. All risk benefits and alternatives were discussed in detail. The risks include but are not limited to infection, bleeding, hematoma formation, nonunion, malunion, shortening, limb length discrepancy, persistent hip pain, hardware failure, need for further surgery, need for hip replacement in the future, symone- implant fractures, DVT, pulm embolism, cardiopulmonary event, . Patient has dementia, and asked if she has any additional questions. Family understands and agrees to proceed with surgery. Charges/Coding Visit Charges Inpatient E&M: 11289 Init Hosp L3
[2024-06-15] MEDS: Galantamine Hydrobromide 4 MG Tablet 12 MG PO (17:16)
[2024-06-15] MEDS: Ondansetron 4 MG/2 ML Vial IV (22:38)
[2024-06-16] VITALS (17 sets, daily range): BP systolic 92–152; BP diastolic 56–88; PULSE 58–107; RESP 10–16; TEMP 36.5–36.9; O2SAT 90–99; BMI 17.0
[2024-06-16] MEDS: busPIRone 5 MG Tablet 10 MG PO ×2 (01:03→20:00)
[2024-06-16] MEDS: Mirtazapine 30 MG Tablet PO (01:04)
[2024-06-16] MEDS: Acetaminophen 325 MG Tablet 650 MG PO (01:06)
[2024-06-16 01:41] LABS: Mucous, Urine 0 SEEN /hpf (<or=2+); Red Blood Cells-Urine 0 SEEN /hpf (0-5)
[2024-06-16 01:49] LABS: Color, Urine Yellow (Yellow); Glucose, Dipstick Normal (Normal); Ketone-Dipstick 5 mg/dl (Negative); Leukocyte Esterase-Dipstick 25 /ul (Negative); Nitrite-Dipstick Positive (Negative); Occult Blood-Urine 50 /ul (Negative); Protein-Dipstick 15 mg/dl (Negative); Urine Bilirubin Dipstick Negative (Negative); Urine Clarity Sl. Cloudy (Clear); Urine Urobilinogen Normal (Normal)
[2024-06-16 04:04] LABS: Bacteria 4+ /hpf (None Seen); Squamous Epithelial Cells - UA 0-5 SEEN /hpf (5-10); White Blood Cells 0-5 SEEN /hpf (0-5)
[2024-06-16 05:44] LABS: Magnesium 2.3 mg/dL (1.6-2.6); Phosphorus 3.2 mg/dL (2.5-4.9)
[2024-06-16] MEDS: 0.9% Saline Lock 10 ML Syringe IV ×2 (06:09→22:32)
[2024-06-16] MEDS: Morphine 2 MG/ML Syringe IV ×2 (06:09→22:27)
--- NOTE | 2024-06-16 06:30 | RAD_ITS ---
EXAM: HIP 1 VIEW WITH PELVIS CLINICAL HISTORY: Status post ORIF of the left intertrochanteric fracture. COMPARISON: Comparison is made with prior examination dated March 09, 2024 TECHNIQUE: Intraoperative imaging was provided for ORIF of the left intertrochanteric fracture with the intramed ullary kelvin fixation and compression screw device. FINDINGS: Satisfactory placement. RAD/Hip 1 view with Pelvis IMPRESSION: Satisfactory reduction. Reading Location: [facility]--1
[2024-06-16] MEDS: 0.9% Normal Saline (1000mL) 1,000 ML 15 ML IV (06:52)
--- NOTE | 2024-06-16 07:02 | PRE.ANES_ITS ---
ASA Classification* ASA Classification ASA Classification: 4 Assessment & Plan Anesthesia* Anesthesia Assessment Anesthesia Assessment: Discussed sedation and/or anesthesia options, risks, benefits, and alternatives with patient/parents/legal guardian/POA. Questions invited. The patient/parents/legal guardian/POA seems to understand and agrees to proceed with anesthesia plan. Reviewed the physical assessment, medical history, allergy history and patient home medications list prior to surgery/procedure/anesthetic and documented any changes. Performed airway and anesthesia risk assessments. Anesthesia Type Anesthesia Type: MAC and Spinal History Source History Obtained from:: Patient and Chart Anesthesia Focused Assessment* Temperature: 98.5 F Pulse Rate: 107 Blood Pressure: 120/64 Respiratory Rate: 16 Pulse Ox: 92 Oxygen Delivery Method: Nasal Cannula Oxygen Flow Rate (L/min): 2 Airway Assessment Mouth opens: 2 cm Mallampati Score: II Teeth Condition: Dentures Focused Labs Anesthesia Preop lab: CBC WBC 9.7 K/mm3 (4.4-11.0) 06/15/24 06:22 RBC 4.51 M/mm3 (4.2-5.4) 06/15/24 06:22 Hgb 12.5 g/dL (12.0-15.0) 06/15/24 06:22 Hct 39.4 % (37-47) 06/15/24 06:22 Plt Count 159 K/mm3 (150-450) 06/15/24 06:22 CHEMISTRY Potassium 3.3 mmol/L (3.5-5.1) L 06/15/24 06:22 Sodium 138 mmol/L (136-145) 06/15/24 06:22 Magnesium 2.3 mg/dL (1.6-2.6) 06/16/24 04:35 Phosphorus 3.2 mg/dL (2.5-4.9) 06/16/24 04:35 BUN 13 mg/dL (7-18) 06/15/24 06:22 Creatinine 0.69 mg/dL (0.55-1.02) 06/15/24 06:22 Glucose 115 mg/dL (74-106) H 06/15/24 06:22 TSH 0.720 uIU/mL (0.358-3.740) 06/15/24 06:22 COAG PT 13.8 SECONDS (11.7-14.9) 06/14/24 18:40 Pre-Assessment Diagnosis/Proposed Procedure Planned Operative Procedure(s): ORIF left Hip Anesthesia History Anesthesia History - flight data technician: Anesthesia History - flight data technician Hx Hospitalization Yes 01/10/20 10:23 Any Problems With Anesthesia No 06/15/24 05:45 Cholinesterase deficiency No 06/15/24 05:45 You/Your Family Experience No 06/15/24 05:45 fever (hyperthermia) with Relationship Recent Exposure to Contagious No 06/15/24 05:45 Disease Does patient have nerve No 06/15/24 05:45 stimulator Patient instructed to have No 06/15/24 05:45 device shut off --Does patient have Pacemaker Yes 06/15/24 11:49 or ICD? When Was Last Pacemaker Check 06/201906/15/24 05:45 QUESTION #4 FULL TEXT: You/Your Family Experience fever (hyperthermia) with Anesthesia Last Oral Intake Last Oral intake: Last Oral Intake NPO since 00:00 06/15/24 11:49 Meds taken in AM with sips of Yes 06/15/24 11:49 water? Meds patient instructed to SEE MAR 06/15/24 11:49 take am of surgery PONV PONV - flight data technician: PONV - flight data technician Female HX of Motion Sickness HX of N/V After Surgery Non-Smoker Duration of Surgery greater than 60 minutes Number of Risk Factors PONV Score Height & Weight Height & Weight: Anesthesia: Height & Weight Height 5 ft 4 in 06/15/24 14:32 Weight: 45.359 kg 06/15/24 14:32 Body Mass Index (BMI) 17.2 06/15/24 11:49 Respiratory Assessment Respiratory Assessment - flight data technician: Respiratory Tract Infection Hx - flight data technician Hx Respiratory Tract Infection No 06/15/24 05:45 STOP Sleep Apnea STOP Sleep Apnea - flight data technician: STOP Sleep Apnea - flight data technician Hx Hypertension Yes 06/14/24 23:21 Hx Sleep Apnea No 06/14/24 23:21 CPAP BIPAP Do you snore loudly (louder No 06/14/24 23:21 than talking or can be heard Do you often feel tired/ No 06/14/24 23:21 fatigued/ sleepy during daytime? Has anyone observed you stop No 06/14/24 23:21 breathing during sleep? STOP Results Negative 06/14/24 23:21 QUESTION #5 FULL TEXT : Do you snore loudly (louder than talking or can be h eard through closed doors)? Tobacco Use History Tobacco Use History - flight data technician: Tobacco Use History - flight data technician Tobacco Use Smoking Status Never smoker 06/14/24 23:21 Hx Tobacco Use No 06/14/24 23:21 Years Smoking Packs Smoked per Day Smoking Cessation Date was within the last 15 years Hx Smoking Cessation Date Hx Smoking Cessation Counseling Hematologic Medial History Hematologic Hx - flight data technician: Hematologic Medical Hx - reproduction technician Hx of Blood Transfusion No 06/14/24 23:21 Hx of Transfusion in last 3 No 06/14/24 23:21 Months Date of Last Transfusion (if within last 3 months) Ever experience any problems No 06/14/24 23:21 with transfusion(s)? Specify any problems Hx of Preganancy in last 3 No 06/14/24 23:21 Months Nurse Filling Out Transfusion [id number] 06/14/24 23:21 & Questions: Date: 06/14/24 06/14/24 23:21 Time: 23:37 06/14/24 23:21 Patient unable to answer at this time (ie. confused, unrespo /Reproduction History /Reproductive History - flight data technician: /Reproductive Hx- flight data technician Hx Now No 06/15/24 05:45 Gestational Age (in weeks): EDC: Hx Hx Para Hx Section SAB No 06/15/24 05:45 Active Medications Active Medications: Current Medications Generic Name Dose Route Start Last Admin Trade Name Freq PRN Reason Stop Dose Admin Acetaminophen 650 mg 06/14/24 23:54 06/16/24 01:06 Acetaminophen 325 Mg Tablet PO 650 mg Q8H PRN PRN Administration Pain Score 1-5/10 or fever. Amlodipine Besylate 5 mg 06/15/24 10:00 06/15/24 09:27 Amlodipine 5 Mg Tablet PO 5 mg DAILY DONNIE Administration Protocol Aspirin 81 mg 06/15/24 08:00 06/15/24 09:25 Aspirin 81 Mg Tab.Chew PO 81 mg BREAKFAST DONNIE Administration Buspirone HCl 10 mg 06/15/24 10:00 06/16/24 01:03 Buspirone 5 Mg Tablet PO 10 mg BID DONNIE Administration Calamine/Phenol 1 applic 06/16/24 10:00 Menthol/Lanolin/Calamine/Znox 113 Gm Tube TOPICAL BID DONNIE Protocol Cyanocobalamin 1,000 mcg 06/15/24 10:00 06/15/24 09:27 Cyanocobalamin 500 Mcg Tablet PO 1,000 mcg DAILY DONNIE Administration Galantamine Hydrobromide 12 mg 06/15/24 08:00 06/15/24 17:16 Galantamine Hydrobromide 4 Mg Tablet PO 12 mg BIDCM DONNIE Administration Hydralazine HCl 5 mg 06/14/24 23:54 Hydralazine 20 Mg/Ml Vial IV Q8H PRN PRN SBP GREATER THAN 160 Protocol Sodium Chloride 100 mls @ 15 mls/hr 06/14/24 23:45 IV .Q6H40M PRN Saline Flush Sodium Chloride 100 mls @ 15 mls/hr 06/14/24 23:45 IV .Q6H40M PRN Additional IVPB Infusion Clindamycin Phosphate 900 mg in 50 mls @ 75 mls/hr 06/16/24 07:30 Cleocin IV 06/16/24 08:09 X1 ONE Sodium Chloride 1,000 mls @ 15 mls/hr 06/16/24 06:45 06/16/24 06:52 IV 06/21/24 20:04 15 mls/hr .Q48H DONNIE Administration Protocol Magnesium Hydroxide 30 ml 06/14/24 23:54 Magnesium Hydroxide 30 Ml Udc PO DAILY PRN PRN Constipation Melatonin 3 mg 06/14/24 23:54 Melatonin 3 Mg Tablet PO QHS PRN PRN INSOMNIA Mirtazapine 30 mg 06/15/24 22:00 06/16/24 01:04 Mirtazapine 30 Mg Tablet PO 30 mg QHS DONNIE Administration Montelukast Sodium 10 mg 06/15/24 10:00 06/15/24 09:27 Montelukast 10 Mg Tablet PO 10 mg DAILY DONNIE Administration Morphine Sulfate 2 mg 06/14/24 23:54 06/16/24 06:09 Morphine 2 Mg/Ml Syringe IV 2 mg Q4H PRN PRN Administration Pain Score 6-10 Ondansetron HCl 4 mg 06/14/24 23:54 06/15/24 22:38 Ondansetron 4 Mg/2 Ml Vial IV 4 mg Q8H PRN PRN Administration NAUSEA/VOMITING Sodium Chloride 10 - 40 ml 06/14/24 23:45 06/16/24 06:09 0.9% Saline Lock 10 Ml Syringe IV 10 ml UD PRN Administration SALINE FLUSH PFSH Medical History Dementia Essential (primary) hypertension Near syncope Complete heart block Chronic cough DDD (degenerative disc disease) Osteoporosis Depression Bronchiectasis Visual loss Anemia HLD (hyperlipidemia) Paroxysmal atrial tachycardia Chest pain, unspecified Shortness of breath Home Medications ?Medication ?Instructions ?Recorded ?Last Taken ?Type montelukast 10 mg tablet 10 mg PO DAILY Check with primary 01/04/20 10/14/22 History doctor aspirin 81 mg chewable tablet 81 mg PO DAILY HEALTH MAINTENANCE 04/25/21 10/14/22 History galantamine 24 mg 24 hr 24 mg PO QAM #90 caps 03/16/24 Unknown Rx capsule,extended release acetaminophen 500 mg tablet 1,000 mg PO Q8H PRN Pain Score 06/14/24 Unknown History 4-02/25 amlodipine 5 mg tablet 5 mg PO DAILY 06/14/24 Unknown History buspirone 10 mg tablet 10 mg PO BID 06/14/24 Unknown History Allergy/AdvReac Type Severity Reaction Status Date / Time codeine Allergy Unknown Verified 03/16/24 10:55 Penicillins Allergy Unknown Verified 03/16/24 10:55 Sulfa (Sulfonamide Allergy Unknown Verified 03/16/24 10:55 Antibiotics) Family History Father , at age 82 CVA (cerebral vascular accident) CAD (coronary artery disease) Mother CAD (coronary artery disease) stomach aneurysm Brother Myocardial infarction CAD (coronary artery disease) CABG Sister CAD (coronary artery disease) Surgical History History of bunionectomy History of open reduction and internal fixation (ORIF) procedure (11/2019) 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) H/O shoulder surgery History of left heart catheterization History of right and left heart catheterization Social History Smoking Status: Never smoker alcohol intake: never substance use type: does not use caffeine: Yes Type: carbonated beverages and coffee what type of physical activity do you participate in: none seatbelt use: always do you feel safe at home: Yes Review of Systems (Anesthesia) ROS Narrative System reviewed and no additional complaints, except as documented.
--- NOTE | 2024-06-16 07:16 | PCM.PN.ORT ---
Subjective Subjective No changes from yesterday. Surgery was canceled yesterday as patient was not NPO. Discussed with patient and family. Agreed to proceed with surgery. No changes in exam findings. Objective Data Objective Data Vital Signs: Vital Signs Temp Pulse Resp BP Pulse Ox O2 Del Method O2 Flow Rate 98.5 F 107 H 16 120/64 92 Nasal Cannula 2 06/16/24 07:11 06/16/24 07:11 06/16/24 07:11 06/16/24 07:11 06/16/24 07:11 06/16/24 07:11 06/16/24 07:11 Oxygen Flow Rate (L/min) 2 Oxygen Delivery Method Nasal Cannula Weight: 99 lb 15.992 oz Body Mass Index (BMI) 17.2 Intake & Output: Intake and Output for Last 24 Hours 06/14/24 06/15/24 06/16/24 23:59 23:59 23:59 Intake Total 1000 / 1000 Output Total 750 / 750 100 / 100 Balance 250 / 250 -100 / -100 Medical Nutrition Assessment Dietitian: Malnutrition Criteria Met Start: 06/15/24 15:05 Freq: Status: Active Protocol: Document 06/15/24 15:05 RMA (Rec: 06/15/24 15:05 RMA [id number]) Nutrition Malnutrition Evidence of Malnutrition Exists Yes Malnutrition (severe): Chronic Evidenced By Suboptimal Energy Intake ( Moderate),Physical Changes ( Moderate) Intake Problem Inadequate Oral Intake Etiology related to plans for surgery Signs/Symptoms as evidenced by NPO Status Active Problem Clinical Problem Chronic Disease or Condition Related Malnutrition Etiology 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 Pt dislikes and refuses ensure --will d/c ensure plus HP w/ medpass. Pt will not take chocolate flavored supplements; agreeable to vanilla fort pudding as diet advanced post- op. Lab / Micro Data 06/15/24 06:22 06/15/24 06:22 Labs: Laboratory Results - last 24 hr 06/15/24 06:22: WBC 9.7, RBC 4.51, Hgb 12.5, Hct 39.4, MCV 87.4, MCH 27.7, MCHC 31.7 L, RDW Std Deviation 43.8, RDW Coeff of Evelyn 13.7, Plt Count 159, MPV 9.7, Immature Gran % (Auto) 0.400, Neut % (Auto) 85.9 H, Lymph % (Auto) 6.0 L, [place] % (Auto) 7.4, Eos % (Auto) 0.1, Baso % (Auto) 0.2, Absolute Neuts (auto) 8.3 H, Absolute Lymphs (auto) 0.58 L, Nucleated RBC % 0, Sodium 138, Potassium 3.3 L, Chloride 104, Carbon Dioxide 26.0, Anion Gap 8, BUN 13, Creatinine 0.69, Estim Creat Clear Calc 43.59, Est GFR (MDRD) Af Amer 103, Est GFR (MDRD) Non-Af 85, BUN/Creatinine Ratio 18.8, Glucose 115 H, Calcium 8.6, Phosphorus 3.0, Magnesium 2.2, Total Bilirubin 0.80, AST 22, ALT 22, Alkaline Phosphatase 69, Total Protein 6.0 L, Albumin 3.3, Globulin 2.7, Albumin/Globulin Ratio 1.2, TSH 0.720 06/16/24 01:25: Urine Color Yellow, Urine Clarity Sl. Cloudy, Urine pH 6.0, Ur Specific [place] 1.020, Urine Protein 15 H, Urine Glucose (UA) Normal, Urine Ketones 5 H, Urine Occult Blood 50 H, Urine Nitrite Positive H, Urine Bilirubin Negative, Urine Urobilinogen Normal, Ur Leukocyte Esterase 25 H, Urine RBC 0 SEEN, Urine WBC 0-5 SEEN, Ur Squamous Epith Cells 0-5 SEEN, Urine Bacteria 4+, Urine Mucus 0 SEEN 06/16/24 04:35: Phosphorus 3.2, Magnesium 2.3
[2024-06-16] MEDS: Clindamycin 900 MG/50 ML BAG 75 MG IV (07:40)
--- NOTE | 2024-06-16 08:50 | OP.PCM_ITS ---
Procedures Musculoskeletal 20xxx-29xxx: Other Procedure See Report Operative Report (Standard) Operative Information Date of Procedure: 06/16/24 Pre-Operative Diagnosis: Left femur intertrochanteric fracture Post-Operative Diagnosis: Same Surgery/Procedure Performed: Open reduction internal fixation with cephalomedullary gamma nailing, left femur chief environmental commitment officer: Yes Knife Sharpener: Aiden Cabrera Tasks completed by laboratory chemical assistant: Closing, Implanting device and Retracting Type of Anesthesia: General RN Documented Start/Stop Times: Operation Date: 06/16/24 07:30 Case Time Into Pre-Op 06/16/24 06:37 Anesthesia Start 06/16/24 07:29 Into Room 06/16/24 07:29 Out of Pre-Op 06/16/24 07:29 Procedure Start 06/16/24 08:05 Procedure Start Time: 08:05 Procedure Stop Time: 08:55 Select all DRAINS/GRAFTS/IMPLANTS that apply: Implanted device Implanted device details: Danilo gamma cephalomedullary nail Estimated Blood Loss: 40 cc Specimen collected: No Description of surgery: Operative Report Pre-operative Diagnosis: Left intertrochanteric Femur Fracture, left pelvic ring fracture Post-operative Diagnosis: Same Procedure(s) Performed: Left femur Cephalmedullary Nailing CPT 37527 Surgeon: Dr. Tahir Leyva MD Parachute Mender: None Estimated Blood Loss: 40 ml Anesthesia: General Drains: None Specimens: None Implants: Wallace Gamma3 Trochanteric Nail 180 x 11 mm, 125 degrees 90 mm lag screw Complications: None Condition: stable Indications: 88-year-old lady who had a ground-level fall and sustained a left intertrochanteric femur Fracture with concomitant left pelvic ring fracture in the sacral ala as well as superior pubic inferior AK which was undisplaced. Operative treatment for left intertrochanteric fracture was recommended, and nonoperative treatment for the pelvic ring fractures was recommended. We discussed the benefits and risks of the procedure including but not limited toinfection, bleeding, injury to nerves and vessels, limb length discrepancy, nonunion, malunion, hardware failure, smyone-implant fracture, hip and knee stiffness, persistent pain, difficulty to ambulate, DVT, pulmonary embolism, cardiopulmonary event, need for further surgeries. The patient concurred with the proposed plan, giving informed consent. Procedure Details: The patient was seen in the pre-operative preparation area. The site of surgery was verbally confirmed and marked by the surgical team. The patient was properly identified by the unique identifiers and was then at that time transported to the operative theater by [facility]. A Time Out was held and the above information confirmed. Both lower extremities were placed on the fracture table with the contralateral extremity extended down to allow C- arm to come in. Undisplaced fracture alignment was well-maintained. Operative area was prepped and draped in a sterile fashion. Final timeout was performed. With the help of C-arm incision was marked. A 4 cm Incision was made proximal to the greater trochanter. An appropriate greater trochanter starting point was found using the starting wire under fluoroscopy. The wire was then drilled to the metadiaphyseal region of the femur. The opening reamer was then drilled into the metadiaphysis under fluoro. 180 x 11 mm Gamma Nail was then placed into the intramedullary canal of the femur and placement was verified with fluoroscopy and advanced to an appropriate level to allow placement of the lag screw. We then drilled the wire for the lag screw up the neck of the femur under fluoroscopic guidance. AP and lateral x-rays showed good positioning of the wire through the neck into the head with good tip apex distance. The wire was then measured. Cannulated drill was used to drill a channel for the lag screw and a 90 mm lag screw was placed up the neck of the femur. A distal static interlocking screw 35 mm was placed with the help of the short gamma nail jig. Final fluorscopic images were then taken and the placement of the intramedullary device and fracture was deemed appropriate. The wounds were irrigated copiously with sterile solution. The deep fascia was closed with 0 vicryl suture. The deep dermal layer was closed with 2-0 vicryl suture. Commodore were used to close the skin. Aquacel dressing was used, the incisions. The patient was then awaken, extubated and taken to the PACU. I was present and scrubbed for the entire procedure. Postoperative plan: Patient will be WBAT. Recommend PT/OT evaluation Pain Control F/u Outpatient in 2 weeks Surgical Findings: See operative note Complications Complications: No
--- NOTE | 2024-06-16 09:11 | PCM.POST.ANE ---
Anesthesia: Postop Eval I Current Vital Signs Temperature: 98 F Pulse Rate: 60 Blood Pressure: 121/70 Respiratory Rate: 16 Pulse Ox: 99 Oxygen Delivery Method: Simple Mask Oxygen Flow Rate (L/min): 6 Assessment Airway patent: Yes Spontaneous unlabored respirations: Yes Mental status: Asleep nausea: No Vomiting: No Anesthesia Complication: No Fluid Hydration Crystalloid volume administer (ml): 1,600 Total IV fluid infused: 1,600 Progress Note Anesthesia document: Postop Eval 1 completed: Yes
--- NOTE | 2024-06-16 11:13 | CASEMGMT ---
Social Work- SW met with pt spouse, daughter, son, and extended family. SW introduced self and role. SW provided information and education on SNF process and answered family's questions. Family expressed concerns regarding pt behaviors and the impact that may have on acceptance. SW will continue to follow for therapy, as pt *just* returned from surgery less than 30 minutes ago. SW to continue to update family as referrals completed and if additional choices are needed. DELAON Lopez
[2024-06-16] MEDS: Lactated Ringers 1,000 ML 999 ML IV (11:30)
[2024-06-16 11:51] LABS: Absolute Lymphocyte Count 0.46 X10^3/uL (0.83-4.51); Absolute Neutrophil Count 8.5 X10^3/uL (2.0-7.7); Basophil# 0.02 X10^3/uL; Basophil% 0.2 % (0-1); Eosinophil# 0.02 X10^3/uL; Eosinophils% 0.2 % (0-5); Hematocrit 37.9 % (37-47); Hemoglobin 12.1 g/dL (12.0-15.0); Lymphocyte # 0.46 X10^3/ul (0.83-4.51); Lymphocyte % 4.9 % (19-41); Mean Corp Hgb Conc 31.9 g/dL (32-36); Mean Corpuscular Hgb 28.5 pg (27.0-32.0); Mean Corpuscular Volume 89.4 fL (81-99); Mean Platelet Vol. 9.4 fl (6.2-12.0); Monocyte# 0.33 X10^3/uL; Monocyte% 3.5 % (0-10); NRBC Flagged by Analyzer 0 % (0-5); Neutrophil # 8.45 X10^3/uL (2.7-7.7); Neutrophil % 90.5 % (47-70); POSITIVE DIFFERENTIAL YES; Platelet Count 133 K/mm3 (150-450); RBC Distribution Width CV 14.2 % (11.6-14.6); Red Blood Count 4.24 M/mm3 (4.2-5.4); White Blood Count 9.4 K/mm3 (4.4-11.0)
[2024-06-16 12:01] LABS: Anion Gap 8 (5-15); BUN 14 mg/dL (7-18); BUN/Creat Ratio 20.2 RATIO (10-20); Calcium,Total 8.4 mg/dL (8.5-10.1); Chloride 109 mmol/L (98-107); Creatinine, Serum 0.69 mg/dL (0.55-1.02); EST Glomerular Filtration Rate 85 mL/min (>60); Est Glom Filt Rate - Afr Amer 103 mL/min (>60); Estimated Creatinine Clearance 35.86 ml/min; Glucose 114 mg/dL (74-106); Magnesium 2.2 mg/dL (1.6-2.6); Potassium 4.1 mmol/L (3.5-5.1); Sodium Level 140 mmol/L (136-145)
[2024-06-16] MEDS: Lactated Ringers 1,000 ML 100 ML IV (12:45)
--- NOTE | 2024-06-16 13:30 | POSTOPAN2_ITS ---
Anesthesia Postop Eval I Sum Postop Eval Completion status Anesthesia document: Postop Eval 1 completed: Yes Anesthesia Postop Eval I Summary Anesthesia Postop Eval I Summary: Anesthesia Postop Eval I: Assessment Summary Airway patent Yes 06/16/24 09:12 CABLE [email or web address] Spontaneous unlabored Yes 06/16/24 09:12 CABLE [email or web address].[email or web address] respirations Mental status Asleep 06/16/24 09:12 CABLE [email or web address].[email or web address] nausea No 06/16/24 09:12 CABLE [email or web address].[email or web address] Vomiting No 06/16/24 09:12 CABLE [email or web address].[email or web address] Anesthesia Postop Eval I: Fluid Summary Crystalloid volume administer 1,600 06/16/24 09:12 CABLE [email or web address] (ml) Colloids volume administered ( ml) Blood Product volume administered (ml) Total IV fluid infused 1,600 06/16/24 09:12 CABLE [email or web address].[email or web address] Anesthesia Postop Eval I: Summary Notes Anesthesia Complication No 06/16/24 09:12 CABLE [email or web address].[email or web address] Anesthesia Complication Comment: Post-operative progress note Anesthesia: Postop Eval II Evaluation Mental status: Awake Pain Level: 0 nausea: No Vomiting: No Complications Anesthesia Complication: No
--- NOTE | 2024-06-16 13:30 | PCM.POSTANE2 ---
Anesthesia Postop Eval I Sum Postop Eval Completion status Anesthesia document: Postop Eval 1 completed: Yes Anesthesia Postop Eval I Summary Anesthesia Postop Eval I Summary: Anesthesia Postop Eval I: Assessment Summary Airway patent Yes 06/16/24 09:12 LABORER CARPENTRY [email or web address] Spontaneous unlabored Yes 06/16/24 09:12 LABORER CARPENTRY DOCK.[email or web address] respirations Mental status Asleep 06/16/24 09:12 LABORER CARPENTRY DOCK.[email or web address] nausea No 06/16/24 09:12 LABORER CARPENTRY DOCK.[email or web address] Vomiting No 06/16/24 09:12 LABORER CARPENTRY DOCK.[email or web address] Anesthesia Postop Eval I: Fluid Summary Crystalloid volume administer 1,600 06/16/24 09:12 LABORER CARPENTRY DOCK.GLADYSOBY (ml) Colloids volume administered ( ml) Blood Product volume administered (ml) Total IV fluid infused 1,600 06/16/24 09:12 LABORER CARPENTRY DOCK.[email or web address] Anesthesia Postop Eval I: Summary Notes Anesthesia Complication No 06/16/24 09:12 LABORER CARPENTRY DOCK.[email or web address] Anesthesia Complication Comment: Post-operative progress note Anesthesia: Postop Eval II Evaluation Mental status: Awake Pain Level: 0 nausea: No Vomiting: No Complications Anesthesia Complication: No
--- NOTE | 2024-06-16 17:03 | PN.HOSP_ITS ---
Reason for Visit Reason for Visit: Diagnoses Unspecified dementia, mild, without behavioral disturbance, psychotic disturbance, mood disturbance, and anxiety (06/14/24) Unqualified visual loss, both eyes (06/14/24) Essential (primary) hypertension (06/14/24) Pain in left shoulder (06/14/24) Other specified fracture of left pubis, initial encounter for closed fracture (06/14/24) Fracture of unspecified part of neck of left femur, initial encounter for closed fracture (06/14/24) Nondisplaced intertrochanteric fracture of left femur, initial encounter for closed fracture (06/14/24) Unspecified fall, initial encounter (06/14/24) Unspecified place in unspecified non-institutional (private) residence as the place of occurrence of the external cause (06/14/24) Objective Data Objective Data Vital Signs: Vital Signs Temp Pulse Resp BP Pulse Ox O2 Del Method O2 Flow Rate 98.5 F 58 L 11 L 142/76 H 98 Nasal Cannula 2 06/16/24 14:48 06/16/24 14:48 06/16/24 14:48 06/16/24 14:48 06/16/24 14:48 06/16/24 14:48 06/16/24 14:48 Oxygen Flow Rate (L/min) 2 Oxygen Delivery Method Nasal Cannula Weight: 99 lb 3.328 oz Body Mass Index (BMI) 17.0 Intake & Output: Intake and Output for Last 24 Hours 06/14/24 06/15/24 06/16/24 23:59 23:59 23:59 Intake Total 1000 / 1000 2120 / 2120 Output Total 750 / 750 300 / 300 Balance 250 / 250 1820 / 1820 Medical Nutrition Assessment Dietitian: Malnutrition Criteria Met Start: 06/15/24 15:05 Freq: Status: Active Protocol: Document 06/15/24 15:05 RMA (Rec: 06/15/24 15:05 RMA [id number]) Nutrition Malnutrition Evidence of Malnutrition Exists Yes Malnutrition (severe): Chronic Evidenced By Suboptimal Energy Intake ( Moderate),Physical Changes ( Moderate) Intake Problem Inadequate Oral Intake Etiology related to plans for surgery Signs/Symptoms as evidenced by NPO Status Active Problem Clinical Problem Chronic Disease or Condition Related Malnutrition Etiology 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 Pt dislikes and refuses ensure --will d/c ensure plus HP w/ medpass. Pt will not take chocolate flavored supplements; agreeable to vanilla fort pudding as diet advanced post- op. Lab / Micro Data 06/16/24 11:39 06/16/24 11:39 Labs: Laboratory Results - last 24 hr 06/16/24 01:25: Urine Color Yellow, Urine Clarity Sl. Cloudy, Urine pH 6.0, Ur Specific [place] 1.020, Urine Protein 15 H, Urine Glucose (UA) Normal, Urine Ketones 5 H, Urine Occult Blood 50 H, Urine Nitrite Positive H, Urine Bilirubin Negative, Urine Urobilinogen Normal, Ur Leukocyte Esterase 25 H, Urine RBC 0 SEEN, Urine WBC 0-5 SEEN, Ur Squamous Epith Cells 0-5 SEEN, Urine Bacteria 4+, Urine Mucus 0 SEEN 06/16/24 04:35: Phosphorus 3.2, Magnesium 2.3 06/16/24 11:39: WBC 9.4, RBC 4.24, Hgb 12.1, Hct 37.9, MCV 89.4, MCH 28.5, MCHC 31.9 L, RDW Std Deviation 46.0 H, RDW Coeff of Evelyn 14.2, Plt Count 133 L, MPV 9.4, Immature Gran % (Auto) 0.700, Neut % (Auto) 90.5 H, Lymph % (Auto) 4.9 L, Elbert % (Auto) 3.5, Eos % (Auto) 0.2, Baso % (Auto) 0.2, Absolute Neuts (auto) 8.5 H, Absolute Lymphs (auto) 0.46 L, Nucleated RBC % 0, Sodium 140, Potassium 4.1, Chloride 109 H, Carbon Dioxide 23.0, Anion Gap 8, BUN 14, Creatinine 0.69, Estim Creat Clear Calc 35.86, Est GFR (MDRD) Af Amer 103, Est GFR (MDRD) Non-Af 85, BUN/Creatinine Ratio 20.2 H, Glucose 114 H, Calcium 8.4 L, Magnesium 2.2 Radiography Diagnostic Testing: Radiology Impression Hip/Pelvis X-Ray 06/16/24 06:30 IMPRESSION: Satisfactory reduction. Reading Location: [facility] Physical Exam Narrative Seen and examined. Patient was groggy, sleepy, just returned from the OR after hip surgery. BP was low 92/17 but improved after IV fluid bolus. 142/76. Usually her system blood pressure is in 110 teens Physical exam General: Mild postanesthetic effect, groggy HEENT: Atraumatic, PERRLA, EOMI, Normocephalic Oral: No Gingival or Mucosal Lesions/ Ulcerations Neck: Supple, No JVD, Negative Carotid Bruits Chest wall/Lungs: Air entry diminished in bilateral lung bases. No crepitation/rhonchi Cardiovascular: Regular rate, Regular Rhythm, Normal S1, Normal S2, No M/G/R Abdomen: Bowel Sounds Present, Soft, Non Tender, Non-Distended : Grewal catheter. No renal angle tenderness. No suprapubic tenderness. Extremities: No edema, Capillary Refill Less than 3 Seconds Skin: Left hip surgical dressing mild serous stain but otherwise intact and dry Musculoskeletal: Mild postop tenderness over left hip joint Neurological: Cranial nerves II-XII grossly intact, DTR 2+/4. No acute focal neurological deficit. Psych/Mental Status: Flat Assessment & Plan Assessment/Plan (1) Closed left hip fracture: QUALIFIERS: Encounter type: initial encounter Qualified Code(s): S72.002A - Fracture of unspecified part of neck of left femur, initial encounter for closed fracture (2) Fracture of left inferior pubic ramus: QUALIFIERS: Encounter type: initial encounter Fracture type: c losed Qualified Code(s): S32.592A - Other specified fracture of left pubis, initial encounter for closed fracture (3) Left shoulder pain: QUALIFIERS: Chronicity: acute Qualified Code(s): M25.512 - Pain in left shoulder (4) Fall at home: QUALIFIERS: Encounter type: initial encounter Qualified Code(s): W19.XXXA - Unspecified fall, initial encounter; Y92.009 - Unspecified place in unspecified non-institutional (private) residence as the place of occurrence of the external cause (5) Impaired vision in both eyes: (6) Dementia: QUALIFIERS: Dementia type: unspecified type Dementia severity: m ild Dementia behavioral or psychological symptom: without behavioral, psychotic, or mood disturbance or anxiety Qualified Code(s): F03.A0 - Unspecified dementia, mild, without behavioral disturbance, psychotic disturbance, mood disturbance, and anxiety (7) Essential (primary) hypertension: PLAN: Plan Patient is a 88-year-old lady who presented for following a fall in her driveway. Imaging studies obtained demonstrated evidence of fractures of the Left pubic rami and comminuted intertrochanteric fracture of the Left femur. Patient admitted to regular nursing floor with consultation placed orthopedic surgery 1. Fall with evidence of fractures of the Left pubic rami and comminuted intertrochanteric fracture of the Left femur. ?Patient has been admitted to regular nursing floor management initiated with immobilization pain management with consultation placed to orthopedic surgery 06/16: Patient had open reduction internal fixation with cephalomedullary, nailing of left femur. Mild serous stain on postop dressing. No active bleeding or hematoma. H&H in the evening. 2. Left shoulder pain ? Secondary to left shoulder bruise following the fall requested for PT OT eval Hypertension ? Blood pressure controlled, home medications continued with dose adjustment as needed 4. Sick sinus syndrome ? Status post pacemaker placement 5. Dementia ? Patient is on galantamine 6. Anxiety disorder ? Patient is on buspirone 7. DVT prophylaxis ? Bilateral SCDs for now with plans to initiate chemoprophylaxis following surgical intervention Advance planning; did discuss with patient's family regarding advanced directives as well as CODE STATUS. Did explain the various scenarios involved ( FULL CODE, DNR CCA, DNR CCA with no intubation, and DNR CC and what each meant) plan is for patient to remain DNR CCA no intubation. Order was placed. Time spent on discussion 16 minutes. Charges/Coding Visit Charges Inpatient E&M: 03637 Subs Hosp L2
[2024-06-16] MEDS: Mirtazapine 15 MG Tablet PO (20:00)
[2024-06-16 21:18] LABS: Hematocrit 31.5 % (37-47); Hemoglobin 10.3 g/dL (12.0-15.0)
[2024-06-17] VITALS (8 sets, daily range): BP systolic 107–156; BP diastolic 50–88; PULSE 59–101; RESP 14–16; TEMP 36.4–37.4; O2SAT 92–95; BMI 18.7
[2024-06-17] MEDS: 0.9% Saline Lock 10 ML Syringe IV ×2 (04:20→08:03)
[2024-06-17] MEDS: Morphine 2 MG/ML Syringe IV (04:20)
[2024-06-17 07:21] LABS: Hematocrit 32.7 % (37-47); Hemoglobin 10.6 g/dL (12.0-15.0); Mean Corp Hgb Conc 32.4 g/dL (32-36); Mean Corpuscular Hgb 28.4 pg (27.0-32.0); Mean Corpuscular Volume 87.7 fL (81-99); Platelet Count 157 K/mm3 (150-450); RBC Distribution Width CV 14.2 % (11.6-14.6); RBC Distribution Width SD 45.3 fl (35.1-43.9); Red Blood Count 3.73 M/mm3 (4.2-5.4); White Blood Count 12.4 K/mm3 (4.4-11.0)
[2024-06-17 07:40] LABS: Anion Gap 10 (5-15); BUN 17 mg/dL (7-18); BUN/Creat Ratio 21.2 RATIO (10-20); Calcium,Total 8.7 mg/dL (8.5-10.1); Chloride 109 mmol/L (98-107); EST Glomerular Filtration Rate 72 mL/min (>60); Est Glom Filt Rate - Afr Amer 87 mL/min (>60); Estimated Creatinine Clearance 39.68 ml/min; Glucose 112 mg/dL (74-106); Potassium 4.5 mmol/L (3.5-5.1); Sodium Level 139 mmol/L (136-145)
--- NOTE | 2024-06-17 08:42 | NURSING ---
Karey Reyes under direction of primary RN
[2024-06-17] MEDS: Galantamine Hydrobromide 4 MG Tablet 12 MG PO ×2 (09:34→17:17)
[2024-06-17] MEDS: Aspirin 81 MG TAB.CHEW PO (09:34)
[2024-06-17] MEDS: Cyanocobalamin 500 MCG Tablet 1000 MCG PO (09:34)
[2024-06-17] MEDS: amLODIPine 5 MG Tablet PO (09:34)
[2024-06-17] MEDS: Montelukast 10 MG Tablet PO (09:34)
[2024-06-17] MEDS: busPIRone 5 MG Tablet 10 MG PO ×2 (09:35→20:13)
--- NOTE | 2024-06-17 11:47 | NURSING ---
vitals deferred d/t pt agitation
--- NOTE | 2024-06-17 13:20 | CASEMGMT ---
Addendum entered by Risa Reyes 06/17/24 14:18: Social Work- SW met with pt family who selected [facility], [facility], [facility], and [facility]. [facility] notified of referral requests. DELANO Lopez Original Note: Social Work- SW met with pt and pt family to discuss preferences at discharge. SW explained that because of pt behavior, it is very unlikely that a facility will accept pt for a skilled program due to behaviors and advanced dementia. Pt family would still like to try and will select 2-3 facilities by this afternoon. SW discussed what the plan will be if pt is not able to be skilled. Pt family states that they will private pay, as they are not sure if they would qualify for [facility]. SW provided information on [facility] and offered referral to [facility]; family agreeable. SW completed referral vis telephone and email. REGGIE provided an [place] Navigator card for pt family to research facilities, as well as providing expanded lists of SNF providers including quality and resource use data and consistent with the patient?s preferred geographic region, medical needs, and insurance network were provided from the [employer] Guide for both [facility] and [facility]. SW to follow up with pt family on choices. DELANO Lopez
[2024-06-17] MEDS: oxyCODONE 5 MG Tablet PO ×2 (13:44→20:14)
[2024-06-17] MEDS: RisperiDONE 0.5 MG Tablet PO (13:44)
[2024-06-17] MEDS: Acetaminophen 500 MG Tablet 1000 MG PO ×2 (13:45→20:14)
--- NOTE | 2024-06-17 14:29 | CASEMGMT ---
Addendum entered by Miracle Rdoriguez 06/17/24 16:27: All have accepted. SW given private pay rates. Mriacle Rodriguez DC Planning Asst. Original Note: Referral sent to [facility] [place], [facility], and [facility]. Miracle Rodriguez DC Planning Asst.
--- NOTE | 2024-06-17 15:34 | PN.HOSP_ITS ---
Reason for Visit Reason for Visit: Diagnoses Unspecified dementia, mild, without behavioral disturbance, psychotic disturbance, mood disturbance, and anxiety (06/14/24) Unqualified visual loss, both eyes (06/14/24) Essential (primary) hypertension (06/14/24) Pain in left shoulder (06/14/24) Other specified fracture of left pubis, initial encounter for closed fracture (06/14/24) Fracture of unspecified part of neck of left femur, initial encounter for closed fracture (06/14/24) Nondisplaced intertrochanteric fracture of left femur, initial encounter for closed fracture (06/14/24) Unspecified fall, initial encounter (06/14/24) Unspecified place in unspecified non-institutional (private) residence as the place of occurrence of the external cause (06/14/24) Objective Data Objective Data Vital Signs: Vital Signs Temp Pulse Resp BP Pulse Ox O2 Del Method O2 Flow Rate 99.3 F H 60 16 107/50 L 94 Room Air 2 06/17/24 14:52 06/17/24 14:52 06/17/24 14:52 06/17/24 14:52 06/17/24 14:52 06/17/24 14:52 06/17/24 09:11 Oxygen Flow Rate (L/min) 2 Oxygen Delivery Method Room Air Weight: 109 lb 12.643 oz Body Mass Index (BMI) 18.7 Intake & Output: Intake and Output for Last 24 Hours 06/15/24 06/16/24 06/17/24 23:59 23:59 23:59 Intake Total 1000 / 1000 3240 / 3240 220 / 220 Output Total 750 / 750 450 / 700 450 / 450 Balance 250 / 250 2790 / 2540 -230 / -230 Medical Nutrition Assessment Dietitian: Malnutrition Criteria Met Start: 06/15/24 15:05 Freq: Status: Active Protocol: Document 06/15/24 15:05 RMA (Rec: 06/15/24 15:05 RMA [id number]) Nutrition Malnutrition Evidence of Yes Malnutrition Exists Malnutrition (severe Chronic ): Evidenced By Suboptimal Energy Intake (Moderate),Physical Changes ( Moderate) Intake Problem Inadequate Oral Intake Etiology related to plans for surgery Signs/Symptoms as evidenced by NPO Status Active Problem Clinical Problem Chronic Disease or Condition Related Malnutrition Etiology Moderate pro-sathish malnutrition in the context of chronic disease and debility related to inadequate oral intake Signs/Symptoms as evidenced by BMI 17.2, PO meeting less than 75% estimated nutrition needs x 2-3 months and muscle wasting/fat depletion noted in clavicle, orbital, temporal region Status Active Problem Recommendation Dietitian Recommend advance PO as tolerated to regular diet post- Recommendations/ op. Changes Pt dislikes and refuses ensure--will d/c ensure plus HP w/ medpass. Pt will not take chocolate flavored supplements; agreeable to vanilla fort pudding as diet advanced post -op. Lab / Micro Data 06/17/24 06:14 06/17/24 04:54 Labs: Laboratory Results - last 24 hr 06/16/24 20:55: Hgb 10.3 L, Hct 31.5 L 06/17/24 04:54: Sodium 139, Potassium 4.5, Chloride 109 H, Carbon Dioxide 20.0 L , Anion Gap 10, BUN 17, Creatinine 0.80, Estim Creat Clear Calc 39.68, Est GFR (MDRD) Af Amer 87, Est GFR (MDRD) Non-Af 72, BUN/Creatinine Ratio 21.2 H, G lucose 112 H, Calcium 8.7 06/17/24 06:14: WBC 12.4 H, RBC 3.73 L, Hgb 10.6 L, Hct 32.7 L, MCV 87.7, MCH 28.4, MCHC 32.4, RDW Std Deviation 45.3 H, RDW Coeff of Evelyn 14.2, Plt Count 157, MPV 10.0 Micro: Microbiology 06/16/24 01:25 Urine, Catheterized Urine Culture - Preliminary Presumptive E. coli Physical Exam Narrative Seen and examined. Patient very irritable. She is agitated. Did not allow me to examine her surgical site. Blood pressure is on baseline, variable 120/74, 151/86. Usually her system blood pressure is in 110 teens Physical exam General: Awake, oriented x 3. Irritable and agitated HEENT: Atraumatic, PERRLA, EOMI, Normocephalic Oral: No Gingival or Mucosal Lesions/ Ulcerations Neck: Supple, No JVD, Negative Carotid Bruits Chest wall/Lungs: Air entry diminished in bilateral lung bases. No crepitation/rhonchi Cardiovascular: Regular rate, Regular Rhythm, Normal S1, Normal S2, No M/G/R Abdomen: Bowel Sounds Present, Soft, Non Tender, Non-Distended : Grewal catheter. No renal angle tenderness. No suprapubic tenderness. Extremities: No edema, Capillary Refill Less than 3 Seconds Skin: Left hip surgical dressing is intact and dry Musculoskeletal: Mild postop tenderness over left hip joint Neurological: Cranial nerves II-XII grossly intact, DTR 2+/4. No acute focal neurological deficit. Psych/Mental Status: Flat. Irritable and agitated Assessment & Plan Assessment/Plan (1) Closed left hip fracture: QUALIFIERS: Encounter type: initial encounter Qualified Code(s): S72.002A - Fracture of unspecified part of neck of left femur, initial encounter for closed fracture (2) Fracture of left inferior pubic ramus: QUALIFIERS: Encounter type: initial encounter Fracture type: c losed Qualified Code(s): S32.592A - Other specified fracture of left pubis, initial encounter for closed fracture (3) Left shoulder pain: QUALIFIERS: Chronicity: acute Qualified Code(s): M25.512 - Pain in left shoulder (4) Fall at home: QUALIFIERS: Encounter type: initial encounter Qualified Code(s): W19.XXXA - Unspecified fall, initial encounter; Y92.009 - Unspecified place in unspecified non-institutional (private) residence as the place of occurrence of the external cause (5) Impaired vision in both eyes: (6) Dementia: QUALIFIERS: Dementia type: unspecified type Dementia severity: m ild Dementia behavioral or psychological symptom: without behavioral, psychotic, or mood disturbance or anxiety Qualified Code(s): F03.A0 - Unspecified dementia, mild, without behavioral disturbance, psychotic disturbance, mood disturbance, and anxiety (7) Essential (primary) hypertension: PLAN: Plan Patient is a 88-year-old lady who presented for following a fall in her driveway. Imaging studies obtained demonstrated evidence of fractures of the Left pubic rami and comminuted intertrochanteric fracture of the Left femur. Patient admitted to regular nursing floor with consultation placed orthopedic surgery 1. Fall with evidence of fractures of the Left pubic rami and comminuted intertrochanteric fracture of the Left femur. ?Patient has been admitted to regular nursing floor management initiated with immobilization pain management with consultation placed to orthopedic surgery 06/16: Patient had open reduction internal fixation with cephalomedullary, nailing of left femur. Mild serous stain on postop dressing. No active bleeding or hematoma. H&H in the evening. 06/17: Patient states it hurts over her left hip therefore do not touch it. Irritable and agitated. On pain medication, Tylenol 1 g every 8 hourly, oxycodone. Risperdal 0.5 mg 1 dose ordered. Patient on Remeron 15 mg nightly daily. Possible in acute delirium with irritation, change in mental status and inattention due to pain. Urine culture shows E. coli 80,000?100,000 colonies, not in pathology range but started on IV ceftriaxone as patient is delirious 2. Left shoulder pain ? Secondary to left shoulder bruise following the fall requested for PT OT eval Hypertension ? Blood pressure controlled, home medications continued with dose adjustment as needed 4. Sick sinus syndrome ? Status post pacemaker placement 5. Dementia ? Patient is on galantamine 6. Anxiety disorder ? Patient is on buspirone 7. DVT prophylaxis ? Bilateral SCDs for now with plans to initiate chemoprophylaxis following surgical intervention Advance planning; did discuss with patient's family regarding advanced directives as well as CODE STATUS. Did explain the various scenarios involved ( FULL CODE, DNR CCA, DNR CCA with no intubation, and DNR CC and what each meant) plan is for patient to remain DNR CCA no intubation. Order was placed. Time spent on discussion 16 minutes. Charges/Coding Visit Charges Inpatient E&M: 76856 Subs Hosp L2
--- NOTE | 2024-06-17 16:46 | CASEMGMT ---
Social Work- SW met with pt family to discuss SNF referrals. Pt was accepted at [facility], [facility], [facility], and [facility]. SW provided private pay rates. SW answered questions regarding discharge timing and precert process. SW encouraged pt family to make selection, as pt is medically ready. Pt family will make selection after discussion this evening and follow up with SW in the morning. DELANO Lopez
[2024-06-17] MEDS: Ceftriaxone 1 GM Vial IM (17:20)
[2024-06-17] MEDS: Mirtazapine 15 MG Tablet PO (20:13)
[2024-06-18 05:43] VITALS: BP 161/101; PULSE 103; RESP 16; TEMP 36.5; O2SAT 96
[2024-06-18] MEDS: Acetaminophen 500 MG Tablet 1000 MG PO ×3 (05:44→20:29)
[2024-06-18] MEDS: oxyCODONE 5 MG Tablet PO ×2 (05:45→16:38)
[2024-06-18 06:00] VITALS: BMI 18.7
[2024-06-18 06:46] LABS: Hematocrit 32.3 % (37-47); Hemoglobin 10.1 g/dL (12.0-15.0); Mean Corp Hgb Conc 31.3 g/dL (32-36); Mean Corpuscular Hgb 27.7 pg (27.0-32.0); Mean Corpuscular Volume 88.5 fL (81-99); Mean Platelet Vol. 10.6 fl (6.2-12.0); Platelet Count 165 K/mm3 (150-450); RBC Distribution Width CV 14.4 % (11.6-14.6); RBC Distribution Width SD 46.7 fl (35.1-43.9); Red Blood Count 3.65 M/mm3 (4.2-5.4); White Blood Count 6.5 K/mm3 (4.4-11.0)
[2024-06-18 07:17] LABS: Anion Gap 6 (5-15); BUN 17 mg/dL (7-18); BUN/Creat Ratio 25.3 RATIO (10-20); Calcium,Total 8.2 mg/dL (8.5-10.1); Chloride 107 mmol/L (98-107); Creatinine, Serum 0.67 mg/dL (0.55-1.02); EST Glomerular Filtration Rate 88 mL/min (>60); Est Glom Filt Rate - Afr Amer 107 mL/min (>60); Glucose 87 mg/dL (74-106); Potassium 3.6 mmol/L (3.5-5.1); Sodium Level 139 mmol/L (136-145)
--- NOTE | 2024-06-18 07:40 | PN.ORTHO_ITS ---
Subjective Subjective Saw patient in 307 on 06/17/2024 at noon, when she was postop day 1. Status post left hip gamma nailing. Patient sitting in recliner comfortably and talking with grandson. Mentions pain at the hip but is able to move the knee and ankle actively. Objective Data Objective Data Vital Signs: Vital Signs Temp Pulse Resp BP Pulse Ox O2 Del Method O2 Flow Rate 97.7 F L 103 H 16 161/101 H 96 Room Air 2 06/18/24 05:43 06/18/24 05:43 06/18/24 05:43 06/18/24 05:43 06/18/24 05:43 06/18/24 05:43 06/17/24 09:11 Oxygen Flow Rate (L/min) 2 Oxygen Delivery Method Room Air Weight: 109 lb 9.116 oz Body Mass Index (BMI) 18.7 Intake & Output: Intake and Output for Last 24 Hours 06/16/24 06/17/24 06/18/24 23:59 23:59 23:59 Intake Total 3240 / 3240 220 / 460 380 / 380 Output Total 450 / 700 450 / 450 Balance 2790 / 2540 -230 / 10 380 / 380 Medical Nutrition Assessment Dietitian: Malnutrition Criteria Met Start: 06/15/24 15:05 Freq: Status: Active Protocol: Document 06/15/24 15:05 RMA (Rec: 06/15/24 15:05 RMA [id number]) Nutrition Malnutrition Evidence of Yes Malnutrition Exists Malnutrition (severe Chronic ): Evidenced By Suboptimal Energy Intake (Moderate),Physical Changes ( Moderate) Intake Problem Inadequate Oral Intake Etiology related to plans for surgery Signs/Symptoms as evidenced by NPO Status Active Problem Clinical Problem Chronic Disease or Condition Related Malnutrition Etiology Moderate pro-sathish malnutrition in the context of chronic disease and debility related to inadequate oral intake Signs/Symptoms as evidenced by BMI 17.2, PO meeting less than 75% estimated nutrition needs x 2-3 months and muscle wasting/fat depletion noted in clavicle, orbital, temporal region Status Active Problem Recommendation Dietitian Recommend advance PO as tolerated to regular diet post- Recommendations/ op. Changes Pt dislikes and refuses ensure--will d/c ensure plus HP w/ medpass. Pt will not take chocolate flavored supplements; agreeable to vanilla fort pudding as diet advanced post -op. Lab / Micro Data 06/18/24 05:25 06/18/24 05:25 Labs: Laboratory Results - last 24 hr 06/17/24 04:54: Sodium 139, Potassium 4.5, Chloride 109 H, Carbon Dioxide 20.0 L , Anion Gap 10, BUN 17, Creatinine 0.80, Estim Creat Clear Calc 39.68, Est GFR (MDRD) Af Amer 87, Est GFR (MDRD) Non-Af 72, BUN/Creatinine Ratio 21.2 H, G lucose 112 H, Calcium 8.7 06/17/24 06:14: WBC 12.4 H, RBC 3.73 L, Hgb 10.6 L, Hct 32.7 L, MCV 87.7, MCH 28.4, MCHC 32.4, RDW Std Deviation 45.3 H, RDW Coeff of Evelyn 14.2, Plt Count 157, MPV 10.0 06/18/24 05:25: WBC 6.5, RBC 3.65 L, Hgb 10.1 L, Hct 32.3 L, MCV 88.5, MCH 27.7, MCHC 31.3 L, RDW Std Deviation 46.7 H, RDW Coeff of Evelyn 14.4, Plt Count 165, MPV 10.6, Sodium 139, Potassium 3.6, Chloride 107, Carbon Dioxide 26.0, Anion Gap 6, BUN 17, Creatinine 0.67, Estim Creat Clear Calc 39.60, Est GFR (MDRD) Af Amer 107, Est GFR (MDRD) Non-Af 88, BUN/Creatinine Ratio 25.3 H, Glucose 87, Calcium 8.2 L Micro: Microbiology 06/16/24 01:25 Urine, Catheterized Urine Culture - Preliminary Presumptive E. coli Physical Exam Narrative Dressing?CDI, reinforced dressing noted at the upper incision. Patient was trying to peel off the Tegaderm which I discouraged. Distal neurovascular exam is intact. Assessment & Plan Assessment/Plan (1) Fracture, intertrochanteric, left femur: QUALIFIERS: Encounter type: initial encounter Fracture type: c losed Fracture alignment: nondisplaced Qualified Code(s): S72.145A - Nondisplaced intertrochanteric fracture of left femur, initial encounter for closed fracture (2) Closed pelvic fracture: QUALIFIERS: Encounter type: initial encounter Pelvic bone location: multiple parts Fracture alignment: with stable disruption of pelvic ring Qualified Code(s): S32.810A - Multiple fractures of pelvis with stable disruption of pelvic ring, initial encounter for closed fracture PLAN: Plan Patient is postop day 1 status post left hip gamma nailing. Patient also has nondisplaced fracture of superior and inferior pubic rami as well as left sacral ala undisplaced fracture. Left intertrochanter fracture has been treated with operative gamma nailing, while pelvic ring undisplaced fractures will be treated conservatively. Continue PT OT mobilization attempts. Patient not very cooperative with PT apparently. Weightbearing as tolerated. Discussed with patient and grandson that pain is expected and will improve over the next few weeks. Eliquis for DVT prophylaxis. Likely require discharge to rehab. Follow-up in Ortho clinic in 2 weeks for staple removal. Discussed in detail with patient's grandson in the room.
[2024-06-18 07:46] VITALS: O2SAT 95
[2024-06-18 08:05] VITALS: BP 95/54; PULSE 98; RESP 18; TEMP 36.6; O2SAT 95
[2024-06-18] MEDS: Montelukast 10 MG Tablet PO (08:31)
[2024-06-18] MEDS: Cyanocobalamin 500 MCG Tablet 1000 MCG PO (08:31)
[2024-06-18] MEDS: busPIRone 5 MG Tablet 10 MG PO ×2 (08:32→20:29)
[2024-06-18] MEDS: amLODIPine 5 MG Tablet PO (08:32)
[2024-06-18] MEDS: Calcium Carbonate 500 MG Tablet PO ×3 (08:32→16:40)
[2024-06-18] MEDS: Aspirin 81 MG TAB.CHEW PO (08:33)
[2024-06-18] MEDS: Menthol/Lanolin/Calamine/Znox 113 GM Tube 1 APPLIC TOPICAL ×2 (08:44→20:30)
--- NOTE | 2024-06-18 10:25 | CASEMGMT ---
Social Work- SW met with pt family to discuss FOC. Pt spouse selects [facility]. SW educated that the facility will start precert. SW provided education again on the precert process and that continued coverage will be dependent on pt progress. Pt family agreeable to private pay if need be. Pt family wants to give pt every opportunity to walk again, as pt spouse would like pt to return home. [facility] notified of request. Plan: [facility]; pend precert DELANO Lopez
[2024-06-18] MEDS: Galantamine Hydrobromide 4 MG Tablet 12 MG PO ×2 (10:26→16:39)
[2024-06-18] MEDS: Ceftriaxone 1 GM Vial IM (10:26)
--- NOTE | 2024-06-18 10:39 | CASEMGMT ---
Pts family has chosen [facility]. Updates sent with request to start precert. All other snfs asked to cancel referral. Miracle Rodriguez DC Planning Asst.
--- NOTE | 2024-06-18 12:51 | PN.ORTHO_ITS ---
Subjective Subjective Patient is postop day 2. Status post left hip gamma nailing. Patient sitting in recliner comfortably and talking with grandson and . Mentions pain at the hip but is able to move the knee and ankle actively. She was up with therapy this morning which based on the therapy note went better than yesterday. There were bloody Kleenex's on the patient's desk due to a nosebleed earlier today. Objective Data Objective Data Vital Signs: Vital Signs Temp Pulse Resp BP Pulse Ox O2 Del Method O2 Flow Rate 97.9 F 98 18 95/54 L 95 Room Air 2 06/18/24 08:05 06/18/24 08:05 06/18/24 08:05 06/18/24 08:05 06/18/24 08:05 06/18/24 08:05 06/17/24 09:11 Oxygen Flow Rate (L/min) 2 Oxygen Delivery Method Room Air Weight: 109 lb 9.116 oz Body Mass Index (BMI) 18.7 Intake & Output: Intake and Output for Last 24 Hours 06/16/24 06/17/24 06/18/24 23:59 23:59 23:59 Intake Total 3240 / 3240 220 / 460 380 / 380 Output Total 450 / 700 450 / 450 Balance 2790 / 2540 -230 / 10 380 / 380 Medical Nutrition Assessment Dietitian: Malnutrition Criteria Met Start: 06/15/24 15:05 Freq: Status: Active Protocol: Document 06/15/24 15:05 RMA (Rec: 06/15/24 15:05 RMA [id number]) Nutrition Malnutrition Evidence of Yes Malnutrition Exists Malnutrition (severe Chronic ): Evidenced By Suboptimal Energy Intake (Moderate),Physical Changes ( Moderate) Intake Problem Inadequate Oral Intake Etiology related to plans for surgery Signs/Symptoms as evidenced by NPO Status Active Problem Clinical Problem Chronic Disease or Condition Related Malnutrition Etiology Moderate pro-sathish malnutrition in the context of chronic disease and debility related to inadequate oral intake Signs/Symptoms as evidenced by BMI 17.2, PO meeting less than 75% estimated nutrition needs x 2-3 months and muscle wasting/fat depletion noted in clavicle, orbital, temporal region Status Active Problem Recommendation Dietitian Recommend advance PO as tolerated to regular diet post- Recommendations/ op. Changes Pt dislikes and refuses ensure--will d/c ensure plus HP w/ medpass. Pt will not take chocolate flavored supplements; agreeable to vanilla fort pudding as diet advanced post -op. Lab / Micro Data 06/18/24 05:25 06/18/24 05:25 Labs: Laboratory Results - last 24 hr 06/18/24 05:25: WBC 6.5, RBC 3.65 L, Hgb 10.1 L, Hct 32.3 L, MCV 88.5, MCH 27.7, MCHC 31.3 L, RDW Std Deviation 46.7 H, RDW Coeff of Evelyn 14.4, Plt Count 165, MPV 10.6, Sodium 139, Potassium 3.6, Chloride 107, Carbon Dioxide 26.0, Anion Gap 6, BUN 17, Creatinine 0.67, Estim Creat Clear Calc 39.60, Est GFR (MDRD) Af Amer 107, Est GFR (MDRD) Non-Af 88, BUN/Creatinine Ratio 25.3 H, Glucose 87, Calcium 8.2 L Micro: Microbiology 06/16/24 01:25 Urine, Catheterized Urine Culture - Final Escherichia coli Physical Exam Narrative Dressing?CDI. Distal neurovascular exam is intact. Active left ankle and knee range of motion, movement does elicit pain. Const alert, oriented x3 and no apparent distress Assessment & Plan Assessment/Plan (1) Fracture, intertrochanteric, left femur: QUALIFIERS: Encounter type: initial encounter Fracture type: c losed Fracture alignment: nondisplaced Qualified Code(s): S72.145A - Nondisplaced intertrochanteric fracture of left femur, initial encounter for closed fracture (2) Fracture of left inferior pubic ramus: QUALIFIERS: Encounter type: initial encounter Fracture type: c losed Qualified Code(s): S32.592A - Other specified fracture of left pubis, initial encounter for closed fracture PLAN: Plan Patient is postop day 1 status post left hip gamma nailing. Patient also has nondisplaced fracture of superior and inferior pubic rami as well as left sacral ala undisplaced fracture. Left intertrochanteric fracture has been treated with operative gamma nailing, while pelvic ring undisplaced fractures will be treated conservatively. Continue PT OT mobilization attempts. Weightbearing as tolerated. Encouraged weightbearing as much as tolerated to help with the healing process. Patient tolerated therapy today better than yesterday, and worked well with the therapist. Kayden for DVT prophylaxis. Family's plan is to be discharged to [facility] for rehab. Case management note reports starting precert. Follow-up in Ortho clinic in 2 weeks for staple removal and xrays, however nursing at [facility] can remove the raghav while she is there if they are comfortable. Discussed in detail with patient's grandson in the room. All questions answered. Patient was comfortable and eating lunch at departure.
--- NOTE | 2024-06-18 13:03 | CASEMGMT ---
[facility] advised that pt is medically ready to discharge once precert is rec'd. Unit phone number given. Green sheet and transport form placed on chart. Miracle Rodriguez DC Planning Asst.
[2024-06-18 14:09] VITALS: BP 120/76; PULSE 95; RESP 16; TEMP 36.7; O2SAT 95
--- NOTE | 2024-06-18 15:11 | PN.HOSP_ITS ---
Reason for Visit Reason for Visit: Diagnoses Unspecified dementia, mild, without behavioral disturbance, psychotic disturbance, mood disturbance, and anxiety (06/14/24) Unqualified visual loss, both eyes (06/14/24) Essential (primary) hypertension (06/14/24) Pain in left shoulder (06/14/24) Other specified fracture of left pubis, initial encounter for closed fracture (06/14/24) Multiple fractures of pelvis with stable disruption of pelvic ring, initial encounter for closed fracture (06/14/24) Fracture of unspecified part of neck of left femur, initial encounter for closed fracture (06/14/24) Nondisplaced intertrochanteric fracture of left femur, initial encounter for closed fracture (06/14/24) Unspecified fall, initial encounter (06/14/24) Unspecified place in unspecified non-institutional (private) residence as the place of occurrence of the external cause (06/14/24) Objective Data Objective Data Vital Signs: Vital Signs Temp Pulse Resp BP Pulse Ox O2 Del Method O2 Flow Rate 98.0 F 95 16 120/76 95 Room Air 2 06/18/24 14:09 06/18/24 14:09 06/18/24 14:09 06/18/24 14:09 06/18/24 14:09 06/18/24 14:09 06/17/24 09:11 Oxygen Flow Rate (L/min) 2 Oxygen Delivery Method Room Air Weight: 109 lb 9.116 oz Body Mass Index (BMI) 18.7 Intake & Output: Intake and Output for Last 24 Hours 06/16/24 06/17/24 06/18/24 23:59 23:59 23:59 Intake Total 3240 / 3240 220 / 460 380 / 380 Output Total 450 / 700 450 / 450 Balance 2790 / 2540 -230 / 10 380 / 380 Medical Nutrition Assessment Dietitian: Malnutrition Criteria Met Start: 06/15/24 15:05 Freq: Status: Active Protocol: Document 06/15/24 15:05 RMA (Rec: 06/15/24 15:05 RMA [id number]) Nutrition Malnutrition Evidence of Yes Malnutrition Exists Malnutrition (severe Chronic ): Evidenced By Suboptimal Energy Intake (Moderate),Physical Changes ( Moderate) Intake Problem Inadequate Oral Intake Etiology related to plans for surgery Signs/Symptoms as evidenced by NPO Status Active Problem Clinical Problem Chronic Disease or Condition Related Malnutrition Etiology Moderate pro-sathish malnutrition in the context of chronic disease and debility related to inadequate oral intake Signs/Symptoms as evidenced by BMI 17.2, PO meeting less than 75% estimated nutrition needs x 2-3 months and muscle wasting/fat depletion noted in clavicle, orbital, temporal region Status Active Problem Recommendation Dietitian Recommend advance PO as tolerated to regular diet post- Recommendations/ op. Changes Pt dislikes and refuses ensure--will d/c ensure plus HP w/ medpass. Pt will not take chocolate flavored supplements; agreeable to vanilla fort pudding as diet advanced post -op. Lab / Micro Data 06/18/24 05:25 06/18/24 05:25 Labs: Laboratory Results - last 24 hr 06/18/24 05:25: WBC 6.5, RBC 3.65 L, Hgb 10.1 L, Hct 32.3 L, MCV 88.5, MCH 27.7, MCHC 31.3 L, RDW Std Deviation 46.7 H, RDW Coeff of Evelyn 14.4, Plt Count 165, MPV 10.6, Sodium 139, Potassium 3.6, Chloride 107, Carbon Dioxide 26.0, Anion Gap 6, BUN 17, Creatinine 0.67, Estim Creat Clear Calc 39.60, Est GFR (MDRD) Af Amer 107, Est GFR (MDRD) Non-Af 88, BUN/Creatinine Ratio 25.3 H, Glucose 87, Calcium 8.2 L Micro: Microbiology 06/16/24 01:25 Urine, Catheterized Urine Culture - Final Escherichia coli Physical Exam Narrative Seen and examined. Patient has dementia and I feel she is easily irritable. Family members surrounding her. She stated she has pain. Did not allow me to examine her surgical site. Blood pressure is in the normal range Physical exam General: Awake, oriented x 3. Irritable and agitated HEENT: Atraumatic, PERRLA, EOMI, Normocephalic Oral: No Gingival or Mucosal Lesions/ Ulcerations Neck: Supple, No JVD, Negative Carotid Bruits Chest wall/Lungs: Air entry diminished in bilateral lung bases. No crepitation/rhonchi Cardiovascular: Regular rate, Regular Rhythm, Normal S1, Normal S2, No M/G/R Abdomen: Bowel Sounds Present, Soft, Non Tender, Non-Distended : Grewal catheter. No renal angle tenderness. No suprapubic tenderness. Extremities: No edema, Capillary Refill Less than 3 Seconds Skin: Left hip surgical dressing is intact and dry Musculoskeletal: Mild postop tenderness over left hip joint. Neurological: Cranial nerves II-XII grossly intact, DTR 2+/4. No acute focal neurological deficit. Psych/Mental Status: Flat. Irritable and agitated Assessment & Plan Assessment/Plan (1) Closed left hip fracture: QUALIFIERS: Encounter type: initial encounter Qualified Code(s): S72.002A - Fracture of unspecified part of neck of left femur, initial encounter for closed fracture (2) Fracture of left inferior pubic ramus: QUALIFIERS: Encounter type: initial encounter Fracture type: c losed Qualified Code(s): S32.592A - Other specified fracture of left pubis, initial encounter for closed fracture (3) Left shoulder pain: QUALIFIERS: Chronicity: acute Qualified Code(s): M25.512 - Pain in left shoulder (4) Fall at home: QUALIFIERS: Encounter type: initial encounter Qualified Code(s): W19.XXXA - Unspecified fall, initial encounter; Y92.009 - Unspecified place in unspecified non-institutional (private) residence as the place of occurrence of the external cause (5) Impaired vision in both eyes: (6) Dementia: QUALIFIERS: Dementia type: unspecified type Dementia severity: m ild Dementia behavioral or psychological symptom: without behavioral, psychotic, or mood disturbance or anxiety Qualified Code(s): F03.A0 - Unspecified dementia, mild, without behavioral disturbance, psychotic disturbance, mood disturbance, and anxiety (7) Essential (primary) hypertension: PLAN: Plan Patient is a 88-year-old lady who presented for following a fall in her driveway. Imaging studies obtained demonstrated evidence of fractures of the Left pubic rami and comminuted intertrochanteric fracture of the Left femur. Patient admitted to regular nursing floor with consultation placed orthopedic surgery 1. Fall with evidence of fractures of the Left pubic rami and comminuted intertrochanteric fracture of the Left femur. ?Patient has been admitted to regular nursing floor management initiated with immobilization pain management with consultation placed to orthopedic surgery 06/16: Patient had open reduction internal fixation with cephalomedullary, nailing of left femur. Mild serous stain on postop dressing. No active bleeding or hematoma. H&H in the evening. 06/17: Patient states it hurts over her left hip therefore do not touch it. Irritable and agitated. On pain medication, Tylenol 1 g every 8 hourly, oxycodone. Risperdal 0.5 mg 1 dose ordered. Patient on Remeron 15 mg nightly daily. Possible in acute delirium with irritation, change in mental status and inattention due to pain. Urine culture shows E. coli 80,000?100,000 colonies, not in pathology range but started on IV ceftriaxone as patient is delirious 06/18: Patient had follow-up by orthopedic surgeon. Patient able to move her knee and ankle actively. She also has nondisplaced fracture of superior and inferior pubic rami and left sacral ala, undisplaced fracture which is being treated conservatively. Pre-CERT is pending. 2. Left shoulder pain ? Secondary to left shoulder bruise following the fall requested for PT OT eval Hypertension ? Blood pressure controlled, home medications continued with dose adjustment as needed 4. Sick sinus syndrome ? Status post pacemaker placement 5. Dementia ? Patient is on galantamine 6. Anxiety disorder ? Patient is on buspirone 7. DVT prophylaxis ? Bilateral SCDs for now with plans to initiate chemoprophylaxis following surgical intervention Advance planning; did discuss with patient's family regarding advanced directives as well as CODE STATUS. Did explain the various scenarios involved ( FULL CODE, DNR CCA, DNR CCA with no intubation, and DNR CC and what each meant) plan is for patient to remain DNR CCA no intubation. Order was placed. Time spent on discussion 16 minutes. Charges/Coding Visit Charges Inpatient E&M: 22025 Subs Hosp L2
--- NOTE | 2024-06-18 16:26 | CASEMGMT ---
Social Work- SW updated family that pt has precert and will discharge tomorrow. Pt family agreeable to physician's cot transport, as pt will need supervised due to confusion and behaviors. Pt transport and green sheet placed on chart. PASRR completed and on chart. Nursing to follow for final family notifications. Plan: DELANO Murray
--- NOTE | 2024-06-18 16:34 | CASEMGMT ---
Chandu has obtained auth to admit. Miracle Rodriguez DC Planning Asst.
[2024-06-18 20:00] VITALS: BP 104/73; PULSE 87; RESP 16; TEMP 36.7; O2SAT 96
[2024-06-18] MEDS: Mirtazapine 15 MG Tablet PO (20:30)
[2024-06-19 02:00] VITALS: BP 108/71; PULSE 86; RESP 16; TEMP 36.7; O2SAT 95
[2024-06-19 06:00] VITALS: BMI 18.3
[2024-06-19] MEDS: Acetaminophen 500 MG Tablet 1000 MG PO (06:24)
[2024-06-19 07:10] LABS: Hematocrit 33.8 % (37-47); Hemoglobin 10.8 g/dL (12.0-15.0); Mean Corpuscular Hgb 28.3 pg (27.0-32.0); Mean Corpuscular Volume 88.7 fL (81-99); Platelet Count 270 K/mm3 (150-450); RBC Distribution Width CV 14.5 % (11.6-14.6); RBC Distribution Width SD 46.1 fl (35.1-43.9); Red Blood Count 3.81 M/mm3 (4.2-5.4); White Blood Count 9.2 K/mm3 (4.4-11.0)
[2024-06-19 07:26] LABS: Anion Gap 8 (5-15); BUN 14 mg/dL (7-18); BUN/Creat Ratio 16.7 RATIO (10-20); Calcium,Total 8.7 mg/dL (8.5-10.1); Chloride 106 mmol/L (98-107); Creatinine, Serum 0.84 mg/dL (0.55-1.02); EST Glomerular Filtration Rate 68 mL/min (>60); Est Glom Filt Rate - Afr Amer 83 mL/min (>60); Estimated Creatinine Clearance 36.81 ml/min; Glucose 96 mg/dL (74-106); Potassium 3.6 mmol/L (3.5-5.1); Sodium Level 139 mmol/L (136-145)
[2024-06-19] MEDS: Calcium Carbonate 500 MG Tablet PO (07:40)
[2024-06-19] MEDS: Montelukast 10 MG Tablet PO (07:41)
[2024-06-19] MEDS: Galantamine Hydrobromide 4 MG Tablet 12 MG PO (07:41)
[2024-06-19] MEDS: Aspirin 81 MG TAB.CHEW PO (07:41)
[2024-06-19] MEDS: amLODIPine 5 MG Tablet PO (07:41)
[2024-06-19] MEDS: Menthol/Lanolin/Calamine/Znox 113 GM Tube 1 APPLIC TOPICAL (07:42)
[2024-06-19] MEDS: busPIRone 5 MG Tablet 10 MG PO (07:42)
[2024-06-19] MEDS: Cyanocobalamin 500 MCG Tablet 1000 MCG PO (07:42)
[2024-06-19 08:15] VITALS: BP 151/83; PULSE 99; RESP 16; TEMP 36.6; O2SAT 98
--- NOTE | 2024-06-19 09:49 | TREXTCAR_ITS ---
Diet Diet Order/Speech Therapy: 06/17/24 01:04 Diet: Regular - General Type of Dietary Supplement:: vanilla fort pud w/ meals Routine Orders/Code Status Suppository Type: Dulcolax 10mg Suppository Frequency: Daily PRN DC O2, CPAP, BIPAP needs Home O2 Discharge instructions: No Wound(s) LEFT HIP: Wound Type: Surgical Incision Therapies Extremity Affected:: Bilateral Lower Physical Therapy: Eval and Treat Occupational Therapy: Eval and Treat Speech Therapy: Eval and Treat Problem/Diagnosis (1) Closed left hip fracture: Status: Acute Code(s): S72.002A - Fracture of unspecified part of neck of left femur, initial encounter for closed fracture (2) Fracture of left inferior pubic ramus: Status: Acute Code(s): S32.592A - Other specified fracture of left pubis, initial encounter for closed fracture (3) Left shoulder pain: Status: Acute Code(s): M25.512 - Pain in left shoulder (4) Fall at home: Status: Acute Code(s): W19.XXXA - Unspecified fall, initial encounter; Y92.009 - Unspecified place in unspecified non-institutional (private) residence as the place of occurrence of the external cause (5) Impaired vision in both eyes: Status: Acute Code(s): H54.3 - Unqualified visual loss, both eyes (6) Dementia: Status: Acute Code(s): F03.90 - Unspecified dementia, unspecified severity, without behavioral disturbance, psychotic disturbance, mood disturbance, and anxiety (7) Essential (primary) hypertension: Status: Chronic Code(s): I10 - Essential (primary) hypertension Plan Patient is a 88-year-old lady who presented for following a fall in her driveway. Imaging studies obtained demonstrated evidence of fractures of the Left pubic rami and comminuted intertrochanteric fracture of the Left femur. Patient admitted to regular nursing floor with consultation placed orthopedic surgery 1. Fall with evidence of fractures of the Left pubic rami and comminuted intertrochanteric fracture of the Left femur. ?Patient has been admitted to regular nursing floor management initiated with immobilization pain management with consultation placed to orthopedic surgery 06/16: Patient had open reduction internal fixation with cephalomedullary, nailing of left femur. Mild serous stain on postop dressing. No active bleeding or hematoma. H&H in the evening. 06/17: Patient states it hurts over her left hip therefore do not touch it. Irritable and agitated. On pain medication, Tylenol 1 g every 8 hourly, oxycodone. Risperdal 0.5 mg 1 dose ordered. Patient on Remeron 15 mg nightly daily. Possible in acute delirium with irritation, change in mental status and inattention due to pain. Urine culture shows E. coli 80,000?100,000 colonies, not in pathology range but started on IV ceftriaxone as patient is delirious 06/18: Patient had follow-up by orthopedic surgeon. Patient able to move her knee and ankle actively. She also has nondisplaced fracture of superior and inferior pubic rami and left sacral ala, undisplaced fracture which is being treated conservatively. Pre-CERT is pending. 2. Left shoulder pain ? Secondary to left shoulder bruise following the fall requested for PT OT eval Hypertension ? Blood pressure controlled, home medications continued with dose adjustment as needed 4. Sick sinus syndrome ? Status post pacemaker placement 5. Dementia ? Patient is on galantamine 6. Anxiety disorder ? Patient is on buspirone 7. DVT prophylaxis ? Bilateral SCDs for now with plans to initiate chemoprophylaxis following surgical intervention Advance planning; did discuss with patient's family regarding advanced directives as well as CODE STATUS. Did explain the various scenarios involved ( FULL CODE, DNR CCA, DNR CCA with no intubation, and DNR CC and what each meant) plan is for patient to remain DNR CCA no intubation. Order was placed. Time spent on discussion 16 minutes. Allergies/Procedures Done in Hospital Allergies codeine Allergy (Verified 03/16/24 10:55) Unknown Penicillins Allergy (Verified 03/16/24 10:55) Unknown Sulfa (Sulfonamide Antibiotics) Allergy (Verified 03/16/24 10:55) Unknown Type of Care/Length of Stay Estimated LOS: Convalescent Care Less Than 30 days Type of Care Needed: Skilled Rehab Potential: Good Prognosis: Good Additional Orders/Day of Discharge Day of Discharge: 06/19/24 Dietary and Speech Recommendations Dietitian Recommendations/Changes: Continue regular diet as ordered d/t signs and symptoms of malnutrition. Continue vanilla fort pudding with meals Continue appetite stimulant Discharge Plan Admission Admit Date/Time: 06/14/24 22:23 Attending Provider: Oneal Dorado Primary Care Provider: Filomena Fontanez Consulting Providers: Tahir Leyva; Jarek Arrieta; Jarek Galeana Discharge Orders/Prescriptions Prescriptions: New acetaminophen 500 mg Tablet 1,000 mg PO Q8 Qty: 0 0RF Rx Instructions: 1 g every 8 hourly for 1 week and then as needed for pain calcium carbonate 200 mg calcium (500 mg) Tablet,Chewable 500 mg PO TIDCM Qty: 0 0RF oxycodone 5 mg Tablet 2.5 - 5 mg PO Q6H PRN PRN (Reason: Pain Score 4-10 Or Pre Pt/Ot) 3 Days Qty: 7 0RF Eliquis 5 mg Tablet 2.5 mg PO BID 30 Days Qty: 60 0RF ciprofloxacin HCl [Cipro] 500 mg tablet 500 mg PO BID 2 Days Qty: 4 0RF Continued montelukast 10 mg tablet 10 mg PO DAILY galantamine 24 mg capsule,ext rel. pellets 24 hr 24 mg PO QAM Qty: 90 1RF Rx Instructions: Administer with breakfast amlodipine 5 mg tablet 5 mg PO DAILY buspirone 10 mg tablet 10 mg PO BID Held aspirin 81 mg tablet,chewable 81 mg PO DAILY Hold Instructions: Hold it while patient is on Eliquis Discontinued acetaminophen 500 MG tablet 1,000 mg PO Q8H PRN (Reason: Pain Score 4-10/10) Referrals / Follow Up: Filomena Fontanez MD [Primary Care Provider] - Tahir Leyva MD [Med Staff - Active Staff] - Within 2 Weeks Disposition Disposition (needs filled in before D/C Order can be placed): Care Home Facility (1) Closed left hip fracture Qualifiers: Encounter type: initial encounter Qualified Code(s): S72.002A - Fracture of unspecified part of neck of left femur, initial encounter for closed fracture (2) Fracture of left inferior pubic ramus Qualifiers: Encounter type: initial encounter Fracture type: closed Qualified Code(s): S32.592A - Other specified fracture of left pubis, initial encounter for closed fracture (3) Left shoulder pain Qualifiers: Chronicity: acute Qualified Code(s): M25.512 - Pain in left shoulder (4) Fall at home Qualifiers: Encounter type: initial encounter Qualified Code(s): W19.XXXA - Unspecified fall, initial encounter; Y92.009 - Unspecified place in unspecified non- institutional (private) residence as the place of occurrence of the external cause (6) Dementia Qualifiers: Dementia behavioral or psychological symptom: without behavioral, psychotic, or mood disturbance or anxiety Dementia severity: mild Dementia type: unspecified type Qualified Code(s): F03.A0 - Unspecified dementia, mild, without behavioral disturbance, psychotic disturbance, mood disturbance, and anxiety
[2024-06-19] MEDS: Ceftriaxone 1 GM Vial IM (10:46)
--- NOTE | 2024-06-19 10:48 | PCM.DC.SUM ---
Providers Date of Admission: 06/14/24 Date of Discharge: 06/19/24 Primary Care Physician: Filomena Fontanez MD Consultations 06/14/24 22:28 Consult: Orthopedics Routine Consulting Provider: Tahir Leyva Reason for Consult: Left Hip Fx. EMERGENT Consult: No MD Notified: Yes Date Notified: 06/14/24 Time Notified: 22:28 Method of Notification: ED Physician Initiated Reason For Visit: LEFT HIP FRACTURE AND LEFT Diagnosis Discharge Diagnosis (1) Closed left hip fracture: Status: Acute Code(s): S72.002A - Fracture of unspecified part of neck of left femur, initial encounter for closed fracture Qualifiers: Encounter type: initial encounter Qualified Code(s): S72.002A - Fracture of unspecified part of neck of left femur, initial encounter for closed fracture (2) Fracture of left inferior pubic ramus: Status: Acute Code(s): S32.592A - Other specified fracture of left pubis, initial encounter for closed fracture Qualifiers: Encounter type: initial encounter Fracture type: closed Qualified Code(s): S32.592A - Other specified fracture of left pubis, initial encounter for closed fracture (3) Left shoulder pain: Status: Acute Code(s): M25.512 - Pain in left shoulder Qualifiers: Chronicity: acute Qualified Code(s): M25.512 - Pain in left shoulder (4) Fall at home: Status: Acute Code(s): W19.XXXA - Unspecified fall, initial encounter; Y92.009 - Unspecified place in unspecified non-institutional (private) residence as the place of occurrence of the external cause Qualifiers: Encounter type: initial encounter Qualified Code(s): W19.XXXA - Unspecified fall, initial encounter; Y92.009 - Unspecified place in unspecified non-institutional (private) residence as the place of occurrence of the external cause (5) Impaired vision in both eyes: Status: Acute Code(s): H54.3 - Unqualified visual loss, both eyes (6) Dementia: Status: Acute Code(s): F03.90 - Unspecified dementia, unspecified severity, without behavioral disturbance, psychotic disturbance, mood disturbance, and anxiety Qualifiers: Dementia type: unspecified type Dementia severity: mild Dementia behavioral or psychological symptom: without behavioral, psychotic, or mood disturbance or anxiety Qualified Code(s): F03.A0 - Unspecified dementia, mild, without behavioral disturbance, psychotic disturbance, mood disturbance, and anxiety (7) Essential (primary) hypertension: Status: Chronic Code(s): I10 - Essential (primary) hypertension Plan Patient is a 88-year-old lady who presented for following a fall in her driveway. Imaging studies obtained demonstrated evidence of fractures of the Left pubic rami and comminuted intertrochanteric fracture of the Left femur. Patient admitted to regular nursing floor with consultation placed orthopedic surgery 1. Fall with evidence of fractures of the Left pubic rami and comminuted intertrochanteric fracture of the Left femur. ?Patient has been admitted to regular nursing floor management initiated with immobilization pain management with consultation placed to orthopedic surgery 06/16: Patient had open reduction internal fixation with cephalomedullary, nailing of left femur. Mild serous stain on postop dressing. No active bleeding or hematoma. H&H in the evening. 06/17: Patient states it hurts over her left hip therefore do not touch it. Irritable and agitated. On pain medication, Tylenol 1 g every 8 hourly, oxycodone. Risperdal 0.5 mg 1 dose ordered. Patient on Remeron 15 mg nightly daily. Possible in acute delirium with irritation, change in mental status and inattention due to pain. Urine culture shows E. coli 80,000?100,000 colonies, not in pathology range but started on IV ceftriaxone as patient is delirious 06/18: Patient had follow-up by orthopedic surgeon. Patient able to move her knee and ankle actively. She also has nondisplaced fracture of superior and inferior pubic rami and left sacral ala, undisplaced fracture which is being treated conservatively. Pre-CERT is pending 06/19: Pre-CERT approved. Patient is going to [facility]. Prescription given for oxycodone 2.5 mg for moderate pain and 5 mg for severe pain respectively, total of 7 tablet. Prescription also for Cipro 500 mg for 2 more doses complete the treatment acute E. coli cystitis 2. Left shoulder pain ? Secondary to left shoulder bruise following the fall requested for PT OT eval Hypertension ? Blood pressure controlled, home medications continued with dose adjustment as needed 4. Sick sinus syndrome ? Status post pacemaker placement 5. Dementia ? Patient is on galantamine 6. Anxiety disorder ? Patient is on buspirone 7. DVT prophylaxis ? Bilateral SCDs for now with plans to initiate chemoprophylaxis following surgical intervention Discharge medication reconciliation done. Discharge follow-up instructions completed. Discharge process discussed with the patient and all questions were answered to patient's satisfaction. Follow with PCP in 1 to 2 weeks Total time spent, exact 35 minutes on discharge meds reconciliation, examination, coordination of care with nurses and ancillary staff, review of imaging and blood test and discussion with the patient on follow-up instructions. Advance planning; did discuss with patient's family regarding advanced directives as well as CODE STATUS. Did explain the various scenarios involved ( FULL CODE, DNR CCA, DNR CCA with no intubation, and DNR CC and what each meant) plan is for patient to remain DNR CCA no intubation. Order was placed. Time spent on discussion 16 minutes. Medications at Discharge Home Medications montelukast 10 mg tablet 10 mg PO DAILY Check with primary doctor 01/04/20 aspirin 81 mg chewable tablet 81 mg PO DAILY HEALTH MAINTENANCE 04/25/21 Held on 06/19/24. Instructions: Hold it while patient is on Eliquis galantamine 24 mg 24 hr capsule,extended release 24 mg PO QAM #90 caps 03/16/24 amlodipine 5 mg tablet 5 mg PO DAILY 06/14/24 buspirone 10 mg tablet 10 mg PO BID 06/14/24 acetaminophen 500 mg tablet 1,000 mg (2 x 500 mg) PO Q8 #0 tabs 06/19/24 apixaban 5 mg tablet (Eliquis) 2.5 mg (1/2 x 5 mg) PO BID 30 days #60 tabs 06/19/24 calcium carbonate 500 mg (2.5 x 200 mg calcium (500 mg)) PO TIDCM #0 tabs 06/19/24 ciprofloxacin HCl 500 mg tablet (Cipro) 500 mg PO BID 2 days #4 tabs 06/19/24 oxycodone 5 mg tablet 2.5 - 5 mg (0.5 - 1 x 5 mg) PO Q6H PRN PRN Pain Score 4-10 Or Pre Pt/Ot 3 days #7 tabs 06/19/24 Physical Exam Narrative Seen and examined. Patient has dementia. Patient more quite today family members surrounding her. Pain is controlled Blood pressure is in the normal range Physical exam General: Awake, oriented x 3. Irritable and agitated HEENT: Atraumatic, PERRLA, EOMI, Normocephalic Oral: No Gingival or Mucosal Lesions/ Ulcerations Neck: Supple, No JVD, Negative Carotid Bruits Chest wall/Lungs: Air entry diminished in bilateral lung bases. No crepitation/rhonchi Cardiovascular: Regular rate, Regular Rhythm, Normal S1, Normal S2, No M/G/R Abdomen: Bowel Sounds Present, Soft, Non Tender, Non-Distended : Grewal catheter. No renal angle tenderness. No suprapubic tenderness. Extremities: No edema, Capillary Refill Less than 3 Seconds Skin: Left hip surgical dressing is intact and dry. No hematoma or bruise Musculoskeletal: Mild postop tenderness over left hip joint. Neurological: Cranial nerves II-XII grossly intact, DTR 2+/4. No acute focal neurological deficit. Psych/Mental Status: Flat. Quiet. Medical Records Data Medical Nutrition Assessment Dietitian: Malnutrition Criteria Met Start: 06/15/24 15:05 Freq: Status: Active Protocol: Document 06/15/24 15:05 RMA (Rec: 06/15/24 15:05 RMA [id number]) Nutrition Malnutrition Evidence of Yes Malnutrition Exists Malnutrition (severe Chronic ): Evidenced By Suboptimal Energy Intake (Moderate),Physical Changes ( Moderate) Intake Problem Inadequate Oral Intake Etiology related to plans for surgery Signs/Symptoms as evidenced by NPO Status Active Problem Clinical Problem Chronic Disease or Condition Related Malnutrition Etiology Moderate pro-sathish malnutrition in the context of chronic disease and debility related to inadequate oral intake Signs/Symptoms as evidenced by BMI 17.2, PO meeting less than 75% estimated nutrition needs x 2-3 months and muscle wasting/fat depletion noted in clavicle, orbital, temporal region Status Active Problem Recommendation Dietitian Recommend advance PO as tolerated to regular diet post- Recommendations/ op. Changes Pt dislikes and refuses ensure--will d/c ensure plus HP w/ medpass. Pt will not take chocolate flavored supplements; agreeable to vanilla fort pudding as diet advanced post -op. Weight / BMI Weight Weight: 106 lb 14.787 oz Body Mass Index (BMI) 18.3 ABG / Lab / Microbiology Data 06/19/24 06:52 06/19/24 06:52 Laboratory: Laboratory Results - last 24 hr 06/19/24 06:52: WBC 9.2, RBC 3.81 L, Hgb 10.8 L, Hct 33.8 L, MCV 88.7, MCH 28.3, MCHC 32.0, RDW Std Deviation 46.1 H, RDW Coeff of Evelyn 14.5, Plt Count 270, MPV 10.0, Sodium 139, Potassium 3.6, Chloride 106, Carbon Dioxide 25.0, Anion Gap 8, BUN 14, Creatinine 0.84, Estim Creat Clear Calc 36.81, Est GFR (MDRD) Af Amer 83, Est GFR (MDRD) Non-Af 68, BUN/Creatinine Ratio 16.7, Glucose 96, Calcium 8.7 Microbiology: Microbiology 06/16/24 01:25 Urine, Catheterized Urine Culture - Final Escherichia coli D/C Instructions DC O2, CPAP, BIPAP Needs Home O2 Discharge instructions: No Meaningful Use Info Meaningful Use Meaningful Use Diagnoses (Choose all that apply): None applicable Ischemic Stroke Statin Dosing Therapy Reference: STATIN DOSE THERAPY REFERENCE: * Patients > 75 years receive moderate or high dose statin therapy. * Patients 75 years or YOUNGER should receive HIGH intensity statin dose unless contraindicated. You will be required to document reason for non-treatment if statin daily dose does not meet guidelines. HIGH DOSE STATIN THERAPY DAILY Atorvastatin > than or = to 40 mg Rosuvastatin > than or = to 20 mg Amlodipine + Atorvastatin > than or = to 2.5/40 mg Ezetimibe + Simvastatin 10/80 mg Simvastatin 80mg Discharge Plan Admission Admit Date/Time: 06/14/24 22:23 Attending Provider: Oneal Dorado Primary Care Provider: Filomena Fontanez Consulting Providers: Tahir Leyva; Jarek Arrieta; Jarek Galeana Discharge Orders/Prescriptions Prescriptions: New acetaminophen 500 mg Tablet 1,000 mg PO Q8 Qty: 0 0RF Rx Instructions: 1 g every 8 hourly for 1 week and then as needed for pain calcium carbonate 200 mg calcium (500 mg) Tablet,Chewable 500 mg PO TIDCM Qty: 0 0RF oxycodone 5 mg Tablet 2.5 - 5 mg PO Q6H PRN PRN (Reason: Pain Score 4-10 Or Pre Pt/Ot) 3 Days Qty: 7 0RF Eliquis 5 mg Tablet 2.5 mg PO BID 30 Days Qty: 60 0RF ciprofloxacin HCl [Cipro] 500 mg tablet 500 mg PO BID 2 Days Qty: 4 0RF Continued montelukast 10 mg tablet 10 mg PO DAILY galantamine 24 mg capsule,ext rel. pellets 24 hr 24 mg PO QAM Qty: 90 1RF Rx Instructions: Administer with breakfast amlodipine 5 mg tablet 5 mg PO DAILY buspirone 10 mg tablet 10 mg PO BID Held aspirin 81 mg tablet,chewable 81 mg PO DAILY Hold Instructions: Hold it while patient is on Eliquis Discontinued acetaminophen 500 MG tablet 1,000 mg PO Q8H PRN (Reason: Pain Score 4-10/10) Referrals / Follow Up: Tahir Leyva MD [Med Staff - Active Staff] - Within 2 Weeks Filomena Fontanez MD [Primary Care Provider] - Disposition Disposition (needs filled in before D/C Order can be placed): Assisted Facility Charges/Coding Visit Charges Inpatient E&M: 61765 Disch Hosp >30min
--- NOTE | 2024-06-19 10:58 | PCA ---
discharge paper work faxed to [facility]. copies placed on chart. pts family is requesting pt to be transported with [facility] and not [facility]. call placed to [facility] and eta is 30 minutes .
== END 2024-06-19 11:43 | disposition skilled nursing facility (03) | DRG 956 ==
LOC: ED 18:47 → MS3 22:46
PROVIDERS: Orthopaedic Surgery Orthopaedic Surgery of the Spine; Admitting Provider Internal Medicine; Emergency Provider Emergency Medicine; PCP Family Medicine; Visit Provider Internal Medicine
PROC: 0QS706Z Reposition Left Upper Femur with Intramedullary Internal Fixation Device, Open Approach (ICD-10-PCS; CPT 27245; principal; 2024-06-16 07:00)
DX: S72.145A Nondisplaced intertrochanteric fracture of left femur, initial encounter for closed fracture (principal); S32.810A Multiple fractures of pelvis with stable disruption of pelvic ring, initial encounter for closed fracture; E44.0 Moderate protein-calorie malnutrition; F05 Delirium due to known physiological condition; Z68.1 Body mass index [BMI] 19.9 or less, adult; Z66 Do not resuscitate; F03.A0 Unspecified dementia, mild, without behavioral disturbance, psychotic disturbance, mood disturbance, and anxiety; I10 Essential (primary) hypertension; I49.5 Sick sinus syndrome; S40.012A Contusion of left shoulder, initial encounter; E78.5 Hyperlipidemia, unspecified; F41.8 Other specified anxiety disorders; M25.512 Pain in left shoulder; H54.3 Unqualified visual loss, both eyes; W19.XXXA Unspecified fall, initial encounter; Z95.0 Presence of cardiac pacemaker; Z79.82 Long term (current) use of aspirin; R93.89 Abnormal findings on diagnostic imaging of other specified body structures; Z82.3 Family history of stroke; N30.90 Cystitis, unspecified without hematuria; Y92.009 Unspecified place in unspecified non-institutional (private) residence as the place of occurrence of the external cause